=== PATIENT | female | born 1975 | race Caucasian/White ===

== ENCOUNTER 2019-07-06 11:32 | Emergency (ER) | payer OTHER, SELFPAY ==
--- NOTE | ~2019-07-06 | XR_ITS ---
EXAMINATION: XR chest 2V DATE: 07/06/2019 11:56 INDICATION: Aspiration. TECHNIQUE: Frontal and lateral views of the chest were obtained. COMPARISON: None. FINDINGS: A calcified left lung nodule is consistent with old granulomatous disease. No pleural effus ion or pneumothorax. The heart size is normal. IMPRESSION: 1. No acute cardiopulmonary disease. Reviewed, dictated and finalized at location A. 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
[2019-07-06 11:44] VITALS: BP 106/76; PULSE 80; RESP 20; TEMP 38.2; O2SAT 98
--- NOTE | 2019-07-06 11:51 | ED.GENADULT ---
HPI - General Adult General Chief complaint: Skin/Abscess/Foreign Body Stated complaint: Pill stuck in throat Time Seen by Provider: 07/06/19 11:36 Source: patient Mode of arrival: ambulatory Limitations: no limitations History of Present Illness HPI narrative: Patient is a 43-year-old female who presents with right-sided chest discomfort after believing that she may have inhaled 1 of her pills prior Monday patient notes aching pain worse with inspiration also noting fever with nonproductive cough congestion rhinorrhea. Was seen Monday started on amoxicillin with minimal improvement. Denies vomiting diarrhea Related Data Home Medications Medication Instructions Recorded Confirmed amoxicillin 500 mg PO TID 07/06/19 carbamazepine 600 mg PO BID 07/06/19 clonazepam 1 mg PO BID PRN 07/06/19 hydroxyzine HCl 50 mg PO HS PRN 07/06/19 quetiapine 100 mg PO DAILY 07/06/19 quetiapine 300 mg PO HS 07/06/19 Allergies Allergy/AdvReac Type Severity Reaction Status Date / Time No Known Allergies Allergy Verified 07/06/19 11:51 Review of Systems Review of Systems: All systems reviewed & are unremarkable except as noted in HPI and below PMFSH Past Medical History Medical History (Updated 07/06/19 @ 13:57 by Zurdo Hill PA-C) Depression Family History Family History (System 03/18/19 @ 10:15 by Melissa Stewart) Mother Family history of mental disorder Father Family history of diabetes mellitus in first degree relative Family history of coronary artery disease Social History Social History Alcohol intake: current Exam Narrative: Exam Narrative: GENERAL: Well-appearing, well-nourished, and in no acute distress. HEAD: Normocephalic, atraumatic. EYES: PERRLA and EOMI. ENT: Nares clear, no rhinorrhea or epistaxis. Mucous membranes moist. Oropharynx without tonsillar hypertrophy exudate or other lesions. NECK: Supple. No adenopathy or masses. CHEST: Clear to auscultation. No respiratory distress. No wheezes rales or rhonchi HEART: Regular rate and rhythm. No murmur heard. Normal peripheral pulses. ABDOMEN: Soft, nontender, nondistended EXTREMITIES: Normal range of motion. No edema. SKIN: Warm, dry, no rash. NEURO: No focal deficits. Alert and oriented x3. Cranial nerves II through XII grossly intact PSYCH: Normal mood and affect. Course Course Emergency Course: Patient in the room afebrile nontoxic-appearing resting comfortably feeling better with interventions Vital Signs Vital signs: Vital Signs Temperature 100.8 F H 07/06/19 11:44 Pulse Rate 80 07/06/19 11:44 Respiratory Rate 20 07/06/19 11:44 Blood Pressure 106/76 07/06/19 11:44 Pulse Oximetry 98 07/06/19 11:44 Temperature 100.8 F H 07/06/19 11:44 Pulse Rate 80 07/06/19 11:44 Respiratory Rate 20 07/06/19 11:58 Blood Pressure 106/76 07/06/19 11:44 Pulse Oximetry 98 07/06/19 11:44 Medical Decision Making MDM Narrative Medical decision making narrative: Patient in the room in no distress with normal vital signs afebrile nontoxic-appearing. Patient aware of case findings treatment plan and diagnosis. Patient agreeing to follow-up as directed. Provided with reasons to return. Likely viral or resolving bacterial infection. No pneumonia seen on exam no high risk changes in the blood work or imaging. Vital Signs Vital Signs: Vital Signs Temperature 100.8 F H 07/06/19 11:44 Pulse Rate 80 07/06/19 11:44 Respiratory Rate 20 07/06/19 11:44 Blood Pressure 106/76 07/06/19 11:44 Pulse Oximetry 98 07/06/19 11:44 Temperature 100.8 F H 07/06/19 11:44 Pulse Rate 80 07/06/19 11:44 Respiratory Rate 20 07/06/19 11:58 Blood Pressure 106/76 07/06/19 11:44 Pulse Oximetry 98 07/06/19 11:44 Lab Data Result diagrams: 07/06/19 12:17 07/06/19 12:17 Labs: Lab Results 07/06/19
[2019-07-06 11:58] VITALS: RESP 20
[2019-07-06 12:25] LABS: Basophils Percent Auto 0.8 % (0.2-1.2); Eosinophils Absolute Auto 0.3 K/mm3 (0-0.3); Eosinophils Percent Auto 6.1 % (0-4.4); Hematocrit 38.6 % (37.0-47.0); Hemoglobin 13.1 g/dL (12.0-15.0); Immature Granulocyte Absolute 0.01 K/mm3 (0.00-0.031); Immature Granulocyte Percent A 0.2 % (0-0.5); Lymphocytes Absolute Auto 1.78 K/mm3 (0.9-3.2); Lymphocytes Percent Auto 34.2 % (18.3-44.2); Mean Corpuscular HGB Conc 33.9 g/dl (32-36); Mean Corpuscular Hemoglobin 30.3 pg (26-34); Mean Corpuscular Volume 89.1 fl (80-100); Mean Platelet Volume 8.3 fl (7.4-10.4); Monocytes Absolute Auto 0.4 K/mm3 (0.1-0.6); Monocytes Percent Auto 7.5 % (2.6-8.5); Neutrophils Absolute Auto 2.7 K/mm3 (1.3-6.7); Neutrophils Percent Auto 51.2 % (45.5-73.1); Platelet Count Result 362 k/mm3 (150-375); Red Blood Count 4.33 M/mm3 (4.2-5.4); Red Cell Distribution Width 11.9 % (11.5-14.5); White Blood Count 5.2 K/mm3 (4.5-10.0)
[2019-07-06 12:37] LABS: Blood Urea Nitrogen 8 mg/dL (7-17); Calcium 8.6 mg/dL (8.4-10.2); Carbon Dioxide 27 mmol/L (22-30); Chloride 99 mmol/L (98-107); Estimated CRCL calculation 103 ml/min; Estimated Glomerular Filt Rate > 60; Glucose 79 mg/dL (65-105); Potassium 4.2 mmol/L (3.4-5.0); Sodium 132 mmol/L (137-145)
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
[2019-07-06 13:47] LABS: Add Urine Microscopic? YES; Appearance Urine Clear (Clear); Bacteria Urine Trace /hpf; Bilirubin Urine Negative (Negative); Blood Urine 2+ (Negative); Color Urine Yellow (Yellow); Glucose Urine UA Negative (Negative); Ketones Urine Negative (Negative); Leukocyte Esterase Ur Negative LEU/UL (Negative); Mucus Urine Rare /lpf; Nitrate Urine Negative (Negative); Protein Urine Negative (Negative); RBC Urine 0-2 /hpf (0-2); Specific Grav Ur 1.026 (1.001-1.035); Squamous Epithelial Cell Urine Many /hpf (Few); Urobilinogen Urine Negative mg/dL (<2.0); WBC Urine 0-3 /hpf
[2019-07-06 15:19] VITALS: BP 118/72; PULSE 64; RESP 20; O2SAT 99
== END 2019-07-06 15:20 | disposition home or self-care (01) ==
PROVIDERS: Emergency Medicine Emergency Medical Services; Emergency Provider Emergency Medicine; PCP Physician Assistant
DX: J06.9 Acute upper respiratory infection, unspecified (principal); F32.9 Major depressive disorder, single episode, unspecified
CPT/HCPCS: 36415; 71046; 80048; 81001; 85025; 87081; 87804; 87880; 96374; 99284; J0131

== ENCOUNTER 2019-08-22 19:09 | Emergency (ER) | payer OTHER, SELFPAY ==
[2019-08-22 19:24] VITALS: BP 123/83; PULSE 82; RESP 19; TEMP 37.2; O2SAT 97
--- NOTE | 2019-08-22 19:27 | PC.NURSE ---
Call for Help called by this RN
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
== END 2019-08-22 20:45 | disposition left against medical advice (07) ==
LOC: ANHED 20:44
PROVIDERS: Emergency Provider Emergency Medicine; PCP Physician Assistant
DX: Z53.21 Procedure and treatment not carried out due to patient leaving prior to being seen by health care provider (principal)
CPT/HCPCS: 99199

== ENCOUNTER 2021-02-11 10:00 | Outpatient (CLI) | payer OTHER, SELFPAY ==
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
[2021-02-11 10:35] LABS: Estimated Glomerular Filt Rate > 60
[2021-02-16 07:15] LABS: Carbamazepine Tegretol 5.2 mcg/mL (4.0-12.0)
== END 2021-02-11 10:01 | disposition home or self-care (01) ==
PROVIDERS: Visit Provider Psychiatry & Neurology Neurology
DX: R56.9 Unspecified convulsions (principal); R78.89 Finding of other specified substances, not normally found in blood
CPT/HCPCS: 70553; 80156; A9577

== ENCOUNTER 2021-03-02 15:07 | Emergency (ER) | payer OTHER, SELFPAY ==
--- NOTE | ~2021-03-02 | US_ITS ---
EXAMINATION: US venous doppler UE DATE: 03/02/2021 16:05 INDICATION: Left upper extremity swelling. TECHNIQUE: Irby scale images with and without compression and Doppler images of the left upper extrem ity veins were obtained. COMPARISON: None. FINDINGS: The left internal jugular vein, subclavian vein, axillary vein, brachial veins, basilic vein, cephali c vein, radial vein, and ulnar vein are patent. IMPRESSION: 1. Patent left upper extremity veins. No evidence of deep venous thrombosis. Reviewed, dictated and finalized at location A.
[2021-03-02 15:14] VITALS: BP 133/86; PULSE 69; RESP 18; TEMP 35.9; O2SAT 98
[2021-03-02 15:22] VITALS: BP 133/86; PULSE 69; RESP 20; TEMP 35.9; O2SAT 98
--- NOTE | 2021-03-02 15:29 | ED.UPPEXIN ---
HPI - Extremity Injury (Upper) General Chief Complaint: Extremity Injury, Upper Stated Complaint: bump on arm Time Seen by Provider: 03/02/21 15:21 Source: patient Mode of arrival: ambulatory Limitations: no limitations History of Present Illness HPI narrative: This is a 45-year-old female that presents to the emergency department for left upper arm pain noted over the last couple of days. Reports she has a painful lump in the upper arm. 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 Does report she is recently started on estrogen. Denies fever, chest pain, shortness of breath, recent travel or surgery, or smoking. Related Data Home Medications Medication Instructions Recorded Confirmed clindamycin HCl 03/02/21 estradiol mg 03/02/21 multivitamin 1 tablet PO DAILY 03/02/21 progesterone micronized mg 03/02/21 Allergies Allergy/AdvReac Type Severity Reaction Status Date / Time No Known Allergies Allergy Verified 03/02/21 15:25 Review of Systems Review of Systems: CONSTITUTIONAL: Denies fever CARDIOVASCULAR: Denies chest pain RESPIRATORY: Denies dyspnea. NEUROLOGIC: Denies numbness, or weakness. All systems reviewed & are unremarkable except as noted in HPI and below PMFSH Past Medical History Medical History (Updated 03/02/21 @ 16:16 by Becky Aguirre PA-C) Depression Seizures Family History Family History Mother Family history of mental disorder Father Family history of diabetes mellitus in first degree relative Family history of coronary artery disease Social History Social History (Updated 03/02/21 @ 15:29 by Becky Aguirre PA-C) Smoking status: Former smoker Alcohol intake: former Gender identity (if verbalized by the patient): Female Exam Narrative: GENERAL: Well-appearing, well-nourished, and in no acute distress. HEAD: Normocephalic, atraumatic. EYES: EOMI. CHEST: No respiratory distress. HEART: Regular rate EXTREMITIES: Normal range of motion. No edema or erythema. Small (1cm) palpable tender area in the left upper arm. Normal radial pulses SKIN: Warm, dry, no rash. NEURO: No focal deficits. Alert and oriented x3. PSYCH: Normal mood and affect Course Vital Signs Vital signs: Vital Signs Temperature 96.7 F L 03/02/21 15:14 Pulse Rate 69 03/02/21 15:14 Respiratory Rate 18 03/02/21 15:14 Blood Pressure 133/86 03/02/21 15:14 Pulse Oximetry 98 03/02/21 15:14 Temperature 96.7 F L 03/02/21 15:22 Pulse Rate 69 03/02/21 15:22 Respiratory Rate 20 03/02/21 15:22 Blood Pressure 133/86 03/02/21 15:22 Pulse Oximetry 98 03/02/21 15:22 MDM - Extremity Injury (Upper) MDM Narrative Medical decision making narrative: Patient presents to the emergency department for swelling and pain to the left upper extremity. No recent injury or trauma. She is afebrile and nontoxic-appearing. No erythema or edema of the arm noted. She is neurovascularly intact. CBC and metabolic panel without concerning findings. Left upper extremity venous Doppler without evidence of DVT. Patient instructed to use heat to the area, Tylenol and ibuprofen as needed for pain. She is to follow-up with her primary care doctor. She was given warnings to return to the ER Lab Data Attestation: I reviewed the patient's lab results. Result diagrams: 03/02/21 15:35 03/02/21 15:35 Labs: Lab Results 03/02/21 03/02/21 03/02/21 Range/Units 15:35 15:35 15:35 WBC 7.8 (4.5-10.0) K/mm3 RBC 4.42 (4.2-5.4) M/mm3 Hgb 14.1 (12.0-15.0) g/dL Hct 41.6 (37.0-47.0) % MCV 94.1 (80-100) fl MCH 31.9 (26-34) pg MCHC 33.9 (32-36) g/dl RDW 11.9 (11.5-14.5) % Plt Count 324 (150-375) k/mm3 MPV 9.1 (7.4-10.4) fl Immature Gran % (Auto) 0.1 (0-0.5) % Neut % (Auto) 65.8 (45.5-73.1) %
[2021-03-02 15:42] LABS: Basophils Percent Auto 0.5 % (0.2-1.2); Eosinophils Absolute Auto 0.2 K/mm3 (0-0.3); Eosinophils Percent Auto 2.9 % (0-4.4); Hematocrit 41.6 % (37.0-47.0); Hemoglobin 14.1 g/dL (12.0-15.0); Immature Granulocyte Absolute 0.01 K/mm3 (0.00-0.031); Immature Granulocyte Percent A 0.1 % (0-0.5); Lymphocytes Percent Auto 25.6 % (18.3-44.2); Mean Corpuscular HGB Conc 33.9 g/dl (32-36); Mean Corpuscular Hemoglobin 31.9 pg (26-34); Mean Corpuscular Volume 94.1 fl (80-100); Mean Platelet Volume 9.1 fl (7.4-10.4); Monocytes Absolute Auto 0.4 K/mm3 (0.1-0.6); Monocytes Percent Auto 5.1 % (2.6-8.5); Neutrophils Absolute Auto 5.1 K/mm3 (1.3-6.7); Neutrophils Percent Auto 65.8 % (45.5-73.1); Platelet Count Result 324 k/mm3 (150-375); Red Blood Count 4.42 M/mm3 (4.2-5.4); Red Cell Distribution Width 11.9 % (11.5-14.5); White Blood Count 7.8 K/mm3 (4.5-10.0)
[2021-03-02 15:52] LABS: Anion Gap 8 mmol/L (8-16); Blood Urea Nitrogen 16 mg/dL (7-17); Carbon Dioxide 24 mmol/L (22-30); Chloride 106 mmol/L (98-107); Estimated CRCL calculation 80 ml/min; Estimated Glomerular Filt Rate > 60; Glucose 107 mg/dL (65-110); INR 0.9; Potassium 4.1 mmol/L (3.4-5.0); Prothrombin Time 12.3 Seconds (11.1-14.7); Sodium 138 mmol/L (137-145)
[2021-03-02 15:53] LABS: Partial Thromboplastin Time 25.3 SECONDS (22.3-36.8)
== END 2021-03-02 16:25 | disposition home or self-care (01) ==
PROVIDERS: Physician Assistant; Emergency Provider Family Medicine
DX: M79.622 Pain in left upper arm (principal); Z87.891 Personal history of nicotine dependence
CPT/HCPCS: 36415; 80048; 85025; 85610; 85730; 93971; 99284

== ENCOUNTER 2021-12-06 11:26 | Emergency (ER) | payer OTHER, SELFPAY ==
[2021-12-06 11:30] VITALS: BP 119/79; PULSE 63; RESP 16; TEMP 36.4; O2SAT 98
--- NOTE | 2021-12-06 12:47 | ED.UPPEXIN ---
HPI - Extremity Injury (Upper) General Chief Complaint: Extremity Injury, Upper Stated Complaint: Left hand pain Time Seen by Provider: 12/06/21 12:09 Source: patient Mode of arrival: ambulatory Limitations: no limitations History of Present Illness HPI narrative: 45 years old white female came to the emergency room by private car complaining of left wrist and left hand pain started 4 months ago, got worse over the last 2 weeks. Patient have trouble to hold stuff without swelling, intermittent tingling and numbness. Patient works at [employer] with repetitive hand movement. 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 Patient could not go to work today because of the pain. She denies any fever, chills, nausea, vomiting, headache, weakness, numbness or tingling anywhere else. Related Data Home Medications Medication Instructions Recorded Confirmed clindamycin HCl 300 mg capsule 03/02/21 estradiol 1 mg tablet mg 03/02/21 multivitamin 1 tablet PO DAILY 03/02/21 progesterone micronized 100 mg mg 03/02/21 capsule Allergies Allergy/AdvReac Type Severity Reaction Status Date / Time No Known Allergies Allergy Verified 12/06/21 12:05 Review of Systems Review of Systems: All systems reviewed & are unremarkable except as noted in HPI and below PMFSH Past Medical History Medical History Depression Seizures Family History Family History Mother Family history of mental disorder Father Family history of diabetes mellitus in first degree relative Family history of coronary artery disease Social History Social History Smoking status: Former smoker Alcohol intake: former Gender identity (if verbalized by the patient): Female Exam Narrative: General appearance: Well-developed, well-nourished Skin: Normal color Head: Normocephalic, nontraumatic Eyes: Clear conjunctiva ENT: Oropharynx normal, ears normal, nose normal Neck: Supple, nontender Chest and respiratory: Airway patent, no respiratory distress, no accessory muscle use Heart: Regular rate/rhythm Abdomen: Soft, nontender, no organomegaly, quiet bowel sounds Vascular: Normal peripheral pulses, normal capillary refill. Musculoskeletal: Normal range of motion, nontender back, slight tenderness of the left wrist, no swelling, no rash, no bruises Neurologic: Alert and oriented ?3, slight weakness of the left hand, 4 out of 5. Positive Phalen's test Course Course Emergency Course: Carpal tunnel syndrome is my concern. Patient need to follow-up with a neurologist for nerve conduction test. Vital Signs Vital signs: Vital Signs Temperature 36.4 C 12/06/21 11:30 Pulse Rate 63 12/06/21 11:30 Respiratory Rate 16 12/06/21 11:30 Blood Pressure 119/79 12/06/21 11:30 Pulse Oximetry 98 12/06/21 11:30 Oxygen Delivery Room Air 12/06/21 11:30 Temperature 36.4 C 12/06/21 11:30 Pulse Rate 63 12/06/21 11:30 Respiratory Rate 16 12/06/21 11:30 Blood Pressure 119/79 12/06/21 11:30 Pulse Oximetry 98 12/06/21 11:30 Oxygen Delivery Room Air 12/06/21 11:30 MDM - Extremity Injury (Upper) Differential Diagnosis Differential diagnosis: Likely other (Carpal tunnel syndrome, arthritis) Critical Care Time Critical Care Time Critical Care Time: No Discharge Plan Discharge Clinical Impression: Hand paresthesia, Acute carpal tunnel syndrome Patient Disposition: Home, Self-Care Condition: Stable Instructions: Antibiotic Form, Carpal Tunnel Syndrome (DC), Paresthesia (ED) Additional Instructions: Return if symptoms are worsening , call Dr. Funes for appointment, take Tylenol as
== END 2021-12-06 13:32 | disposition home or self-care (01) ==
PROVIDERS: Emergency Provider Emergency Medicine
DX: G56.02 Carpal tunnel syndrome, left upper limb (principal); R20.2 Paresthesia of skin; Z87.891 Personal history of nicotine dependence
CPT/HCPCS: 99282

== ENCOUNTER 2021-12-19 15:43 | Emergency (ER) | payer OTHER, SELFPAY ==
--- NOTE | ~2021-12-19 | XR_ITS ---
XR shoulder RT min 2V 12/19/2021 16:14 INDICATION: Right shoulder pain PROCEDURE: 4 views right shoulder COMPARISON: 07/11/2018 FINDINGS: Fracture, dislocation or subluxation is not identified. The soft tissues appear within norm al limits. No foreign bodies are identified. IMPRESSION: 1: NO ACUTE BONE OR JOINT ABNORMALITY IDENTIFIED. Reviewed, dictated and finalized at location A.
--- NOTE | ~2021-12-19 | XR_ITS ---
EXAMINATION: XR chest 2V 12/19/2021 16:36 INDICATION: Right-sided chest pain and congestion PROCEDURE: PA and lateral views of the chest COMPARISON: 07/06/2019 FINDINGS: The lungs are clear. The cardiomediastinal silhouette is within normal limits. There are no pleural effusions. There is no pneumothorax suspected. IMPRESSION: 1: NO ACUTE CARDIOPULMONARY DISEASE. Reviewed, dictated and finalized at location A.
[2021-12-19 15:45] VITALS: BP 106/74; PULSE 64; RESP 18; TEMP 36.6; O2SAT 97
--- NOTE | 2021-12-19 16:06 | ED.NECK ---
HPI - Neck Pain/Injury General Chief Complaint: Neck Pain/Injury Stated Complaint: neck/shoulder pain Time Seen by Provider: 12/19/21 15:51 History of Present Illness HPI Narrative: Patient is a 45-year-old female here for evaluation of right shoulder pain over the past week. Patient states that the pain came on after a cough, and noted that it was sharp and stabbing in nature around her shoulder region and also in her neck. She states since then the pain has been relatively constant in nature, worse with certain positions. She has not attempted any pain medicine. Also notes that she has had what seems like an asthma flareup over the past month, with frequent coughing, tightness in her chest on the right side cough, and upper respiratory infectious type symptoms. she has been taking her albuterol inhaler and nebulizer treatments with relief of the symptoms, but the longevity is worrisome to her. Related Data Home Medications Medication Instructions Recorded Confirmed clindamycin HCl 300 mg capsule 03/02/21 estradiol 1 mg tablet mg 03/02/21 multivitamin 1 tablet PO DAILY 03/02/21 progesterone micronized 100 mg mg 03/02/21 capsule Allergies Allergy/AdvReac Type Severity Reaction Status Date / Time No Known Allergies Allergy Verified 12/06/21 12:05 Review of Systems Review of Systems: Gen: Denies fevers or chills Eyes: Denies eye pain or visual change ENT: Denies congestion Respiratory: Reports cough. denies shortness of breath CV: Denies chest pain or palpitations GI: Denies abdominal pain nausea, emesis or diarrhea : denies burning, urgency, frequency or hematuria Musculoskeletal: Reports right shoulder pain Neuro: Denies numbness, tingling, weakness or focal weakness Skin: Denies rash Except as documented, all other systems reviewed and negative [facility] Past Medical History Medical History Depression Seizures Family History Family History Mother Family history of mental disorder Father Family history of diabetes mellitus in first degree relative Family history of coronary artery disease Social History Social History Smoking status: Former smoker Alcohol intake: former Gender identity (if verbalized by the patient): Female Exam Narrative: APPEARANCE: Well appearing, no pain in distress, well-nourished. Head: Normocephalic and atraumatic. EYES: PERRLA/EOMI, conjunctivae clear NOSE: No nasal drainage EARS: External ear normal in appearance THROAT: Oropharynx is clear. Mucous membranes are moist. NECK: Supple. No adenopathy, no masses. RESPIRATORY: Airway patent, respirations nonlabored. Clear to auscultation bilaterally, no rales, rhonchi, wheezing. CARDIOVASCULAR: Regular rate and rhythm without murmurs, rubs, or gallops. ABDOMINAL: Normoactive bowel sounds. Soft, nontender, nondistended. No rebound tenderness or guarding. MUSCULOSKELETAL: No bony tenderness to palpation along right clavicle, humerus, elbow or wrist. She has full range of motion in the right shoulder, but does note pain with external rotation. She states most comfortable position is internal rotation of the shoulder. Empty can test positive. Ferris test positive. Extremities warm and well perfused. Spurling's test negative. No midline tenderness along C-spine. Notes pain in shoulder with hyperextension of neck. Extremities are warm and well-perfused. NEURO: Normal speech. No focal neurologic deficits. SKIN: Skin is warm and dry. No rashes. PSYCHIATRIC: Normal affect/mood. Course Vital Signs Vital signs: Vital Signs Temperature 97.8 F 12/19/21 15:45 Pulse Rate 64 12/19/21 15:45 Respiratory Rate 18 12/19/21 15:45 Blood Pressure 106/74 12/19/21 15:45 Pulse Oximetry 97 12/19/21 15:45 Temperature 97.8 F 12/19/21 15:45 Pulse R
--- NOTE | 2021-12-19 16:26 | ECG_ITS ---
Measurements Intervals [place] Rate: 54 P: 5 SD: 161 QRS: 43 QRSD: 103 T: 34 QT: 407 QTc: 388 Interpretive Statements SINUS BRADYCARDIA OTHERWISE WITHIN NORMAL LIMITS NO PREVIOUS ECG AVAILABLE FOR COMPARISON Electronically Signed On 12-20-2021 13:52:31 CDT by Luther Vyas M.D.
[2021-12-19 16:55] LABS: Basophils Percent Auto 0.3 % (0.2-1.2); Eosinophils Absolute Auto 0.2 K/mm3 (0-0.3); Hematocrit 37.9 % (37.0-47.0); Hemoglobin 12.6 g/dL (12.0-15.0); Immature Granulocyte Absolute 0.02 K/mm3 (0.00-0.031); Immature Granulocyte Percent A 0.3 % (0-0.5); Lymphocytes Absolute Auto 2.06 K/mm3 (0.9-3.2); Lymphocytes Percent Auto 29.1 % (18.3-44.2); Mean Corpuscular HGB Conc 33.2 g/dl (32-36); Mean Corpuscular Volume 93.3 fl (80-100); Mean Platelet Volume 8.7 fl (7.4-10.4); Monocytes Absolute Auto 0.5 K/mm3 (0.1-0.6); Monocytes Percent Auto 7.1 % (2.6-8.5); Neutrophils Absolute Auto 4.3 K/mm3 (1.3-6.7); Neutrophils Percent Auto 60.2 % (45.5-73.1); Platelet Count Result 286 k/mm3 (150-375); Red Blood Count 4.06 M/mm3 (4.2-5.4); Red Cell Distribution Width 12.4 % (11.5-14.5); White Blood Count 7.1 K/mm3 (4.5-10.0)
[2021-12-19 17:13] LABS: Anion Gap 6 mmol/L (8-16); Blood Urea Nitrogen 13 mg/dL (7-17); Calcium 8.9 mg/dL (8.4-10.2); Carbon Dioxide 26 mmol/L (22-30); Chloride 100 mmol/L (98-107); Estimated CRCL calculation 106 ml/min; Estimated Glomerular Filt Rate > 60; Glucose 108 mg/dL (65-110); Potassium 3.7 mmol/L (3.4-5.0); Sodium 132 mmol/L (137-145)
[2021-12-19 17:25] LABS: Troponin I < 0.012 ng/mL (0.000-0.034)
== END 2021-12-19 17:57 | disposition home or self-care (01) ==
PROVIDERS: Physician Assistant; Emergency Provider Emergency Medicine
DX: M25.511 Pain in right shoulder (principal); J45.909 Unspecified asthma, uncomplicated; Z87.891 Personal history of nicotine dependence; R00.1 Bradycardia, unspecified
CPT/HCPCS: 36415; 71046; 73030; 80048; 84484; 85025; 93005; 99284; A4565

== ENCOUNTER 2022-05-03 12:10 | Emergency (ER) | payer OTHER, SELFPAY ==
--- NOTE | ~2022-05-03 | XR_ITS ---
Left Hand Technique: PA, oblique, and lateral views were obtained. Clinical History: Pain Findings: No acute fracture or dislocation is seen. Osseous alignment is anatomic. Joint spaces are p reserved. Soft tissues are unremarkable. Impression: Unremarkable left hand. Reviewed, dictated and finalized at location M. [employer] Impression: Unremarkable left hand.
--- NOTE | ~2022-05-03 | XR_ITS ---
Left wrist Technique: PA, oblique, lateral, and ulnar deviation views were obtained. Clinical History: Pain Findings: No acute fracture or dislocation is seen. Osseous alignment is anatomic. Joint spaces are p reserved. Soft tissues are unremarkable. Impression: Unremarkable left wrist radiographs. Reviewed, dictated and finalized at location . GRADER Impression: Unremarkable left wrist radiographs.
[2022-05-03 12:21] VITALS: BP 104/61; PULSE 65; RESP 18; TEMP 36.9; O2SAT 96
--- NOTE | 2022-05-03 13:13 | ED.EXTPRO ---
HPI - Extremity Problem General Chief complaint: Extremity Problem,Nontraumatic Stated complaint: L thumb pain Time Seen by Provider: 05/03/22 13:00 History of Present Illness HPI Narrative: Patient is a 46-year-old female here for evaluation of left thumb pain for the past 4 months. Patient states the pain is worse with movement of her wrist. States that she had nerve conduction studies that confirmed findings of carpal tunnel upon symptom onset. States that she has not been wearing her brace as prescribed. She has not been taking any ibuprofen or Tylenol for her pain. Denies numbness or tingling in her wrist, weakness. She works at [email or web address] and is requesting a work note. Related Data Home Medications Medication Instructions Recorded Confirmed estradiol 1 mg tablet mg 03/02/21 12/27/21 multivitamin 1 tablet PO DAILY 03/02/21 12/27/21 progesterone micronized 100 mg mg 03/02/21 12/27/21 capsule fluticasone propionate 50 1 spray intranasal DAILY 01/11/22 mcg/actuation nasal spray,suspension (Flonase Allergy Relief) levocetirizine 5 mg tablet (Xyzal) 5 mg PO DAILY 01/11/22 olanzapine 10 mg tablet 10 mg PO DAILY 01/11/22 Allergies Allergy/AdvReac Type Severity Reaction Status Date / Time No Known Allergies Allergy Verified 05/03/22 12:45 Review of Systems Review of Systems: Gen.: Denies fevers or chills Eyes: Denies eye pain or visual change ENT: Denies congestion Respiratory: Denies shortness of breath or cough CV: Denies chest pain or palpitations GI: Denies abdominal pain nausea, emesis or diarrhea denies burning, urgency, frequency or hematuria Musculoskeletal: Reports left thumb pain. Denies back pain or muscle pain Neuro: Denies numbness, tingling, weakness or focal weakness Skin: Denies rash Except as documented, all other systems reviewed and negative [facility] Past Medical History Medical History Anxiety Asthma Claustrophobia Depression Seizures Surgical History Surgical History History of History of hernia repair History of tubal ligation Family History Family History (Updated 01/11/22 @ 13:55 by Antonella Diaz, RT(R)) Mother Family history of mental disorder Father Family history of diabetes mellitus in first degree relative Family history of coronary artery disease Other Arthritis Asthma Cancer Depression Diabetes mellitus Heart disease High cholesterol Hypertension Social History Social History Smoking status: Former smoker Alcohol intake: former Gender identity (if verbalized by the patient): Female Exam Narrative: Gen: Alert, oriented, no acute distress Eyes: EOMI, no icterus Pulm: Respirations even and unlabored, symmetric thorax expansion, no audible stridor or visible cyanosis CV: Regular rate per telemetry GI: No distension, no voluntary/involuntary guarding Neuro: AOx4, moves all extremities without apparent difficulty or weakness, follows commands MSK: Tender to palpation at the base of the left thumb. Kim's test positive. Phalen's test positive. Full range of motion in thumb without pain. No tenderness along carpal bones. Thenar eminence is normal in appearance. Skin: No jaundice, no visible bruising, rashes, lesions or wounds on exposed skin Psych: Normal mood/affect, insight/judgement good, adequate fund of knowledge, recent/remote memory intact Course Vital Signs Vital signs: Vital Signs Temperature 98.4 F 05/03/22 12:21 Pulse Rate 65 05/03/22 12:21 Respiratory Rate 18 05/03/22 12:21 Blood Pressure 104/61 05/03/22 12:21 Pulse Oximetry 96 05/03/22 12:21 Oxygen Delivery Room Air 05/03/22 12:21 Temperature 98.4 F 05/03/22 12:21 Pulse Rate 87 05/03/22 13:53 Respiratory Rate 15 05/03/22 13:53
[2022-05-03 13:53] VITALS: BP 106/67; PULSE 87; RESP 15; O2SAT 99
== END 2022-05-03 13:54 | disposition home or self-care (01) ==
PROVIDERS: Emergency Provider Physician Assistant
DX: G56.02 Carpal tunnel syndrome, left upper limb (principal); F41.9 Anxiety disorder, unspecified; J45.909 Unspecified asthma, uncomplicated; F32.9 Major depressive disorder, single episode, unspecified; G40.909 Epilepsy, unspecified, not intractable, without status epilepticus
CPT/HCPCS: 73110; 73130; 99283

== ENCOUNTER 2022-05-10 12:54 | Emergency (ER) | payer OTHER, SELFPAY ==
[2022-05-10 13:17] VITALS: BP 107/55; PULSE 60; RESP 20; TEMP 37.1; O2SAT 98
[2022-05-10 14:28] VITALS: RESP 14
--- NOTE | 2022-05-10 14:41 | ED.SKABFB ---
HPI - Skin/Abscess/Foreign Bdy General Chief complaint: Skin/Abscess/Foreign Body Stated complaint: cyst in left armpit Time Seen by Provider: 05/10/22 14:28 History of Present Illness HPI narrative: 46-year-old female here for evaluation of a lesion to her left axilla that she noticed about a month ago. Since then the lesion has been growing in size and has becoming more painful. She has not attempted any medicine for the pain. Denies history of similar previous sensations. No fevers, chills, states that she has felt a little bit tired over the past week now she has been working a lot. Related Data Home Medications Medication Instructions Recorded Confirmed multivitamin 1 tablet PO DAILY 03/02/21 12/27/21 progesterone micronized 100 mg mg 03/02/21 12/27/21 capsule fluticasone propionate 50 1 spray intranasal DAILY 01/11/22 mcg/actuation nasal spray,suspension (Flonase Allergy Relief) olanzapine 10 mg tablet 10 mg PO DAILY 01/11/22 deutetrabenazine 9 mg tablet 9 mg PO DAILY 05/10/22 (Austedo) olanzapine 10 mg tablet (Zyprexa) 10 mg PO HS 05/10/22 Allergies Allergy/AdvReac Type Severity Reaction Status Date / Time No Known Allergies Allergy Verified 05/03/22 12:45 Review of Systems Review of Systems: Gen.: Denies fevers or chills Eyes: Denies eye pain or visual change ENT: Denies congestion Respiratory: Denies shortness of breath or cough CV: Denies chest pain or palpitations GI: Denies abdominal pain nausea, emesis or diarrhea denies burning, urgency, frequency or hematuria Musculoskeletal: Denies back pain or muscle pain Neuro: Denies numbness, tingling, weakness or focal weakness Skin: reports lesion in left axillae Except as documented, all other systems reviewed and negative [facility] Past Medical History Medical History Anxiety Asthma Claustrophobia Depression Seizures Surgical History Surgical History History of History of hernia repair History of tubal ligation Family History Family History (Updated 01/11/22 @ 13:55 by Antonella Diaz, RT(R)) Mother Family history of mental disorder Father Family history of diabetes mellitus in first degree relative Family history of coronary artery disease Other Arthritis Asthma Cancer Depression Diabetes mellitus Heart disease High cholesterol Hypertension Social History Social History Smoking status: Former smoker Alcohol intake: former Gender identity (if verbalized by the patient): Female Exam Narrative: Gen: alert, oriented, NAD Eyes: EOMI, no icterus Pulm: Respirations even and unlabored, symmetric thorax expansion, no audible stridor or visible cyanosis CV: Regular rate per telemetry GI: No distension, no voluntary/involuntary guarding Neuro: AOx4, moves all extremities without apparent difficulty or weakness, follows commands Skin: Patient has a 2 x 3 cm area of induration to her left axilla with overlying cellulitis, no active drainage Psych: Normal mood/affect, insight/judgement good, adequate fund of knowledge, recent/remote memory intact Course Vital Signs Vital signs: Vital Signs Temperature 98.7 F 05/10/22 13:17 Pulse Rate 60 05/10/22 13:17 Respiratory Rate 20 05/10/22 13:17 Blood Pressure 107/55 L 05/10/22 13:17 Pulse Oximetry 98 05/10/22 13:17 Oxygen Delivery Room Air 05/10/22 13:17 Temperature 98.7 F 05/10/22 13:17 Pulse Rate 60 05/10/22 13:17 Respiratory Rate 14 05/10/22 16:05 Blood Pressure 107/55 L 05/10/22 13:17 Pulse Oximetry 98 05/10/22 13:17 Oxygen Delivery Room Air 05/10/22 13:17 Procedures Abscess I/D other: Date of Incision: 05/10/22 Time of Incision: 15:30 Local Anesthetic: lidocaine 1% and with epi Amount
[2022-05-10] MEDS: IBUPROFEN 600 MG TABLET PO (14:55)
[2022-05-10] MEDS: POVIDONE-IODINE 10% SOLUTION 118 ML BOTTLE 10 ML TOPICAL (14:55)
[2022-05-10] MEDS: LIDOCAINE, EPINEPHRINE, TETRACAINE VISCOUS SOLN 3 ML TOPICAL (14:55)
[2022-05-10] MEDS: LIDO 1%/EPINEPHRINE/PF 1:200,000 30 ML VIAL 5 ML INFILTRATE (15:52)
[2022-05-10 16:05] VITALS: RESP 14
== END 2022-05-10 16:06 | disposition home or self-care (01) ==
PROVIDERS: Emergency Provider Physician Assistant
DX: L02.412 Cutaneous abscess of left axilla (principal); J45.909 Unspecified asthma, uncomplicated; F41.9 Anxiety disorder, unspecified; F32.A Depression, unspecified; Z87.891 Personal history of nicotine dependence
CPT/HCPCS: 10060; 99283; A9270

== ENCOUNTER 2022-06-30 15:40 | Outpatient (CLI) | payer OTHER, SELFPAY ==
--- NOTE | ~2022-06-30 | XR_ITS ---
EXAMINATION: XR foot LT min 3V DATE: 06/30/2022 16:03 INDICATION: Left foot pain. TECHNIQUE: 4 views of left foot were obtained. COMPARISON: None. FINDINGS: Bone alignment is normal. No fracture. There is mild osteoarthritis of some of the interpha langeal joints. There is an enthesophyte at plantar aspect of calcaneal tuberosity. IMPRESSION: 1. Mild polyarticular osteoarthritis. Reviewed, dictated and finalized at location A. 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
== END 2022-06-30 15:41 | disposition home or self-care (01) ==
LOC: ANHIMG 15:50
DX: M19.072 Primary osteoarthritis, left ankle and foot (principal)
CPT/HCPCS: 73630

== ENCOUNTER 2022-12-09 12:06 | Outpatient (CLI) | payer OTHER, SELFPAY ==
[2022-12-13 09:29] LABS: Carbamazepine Tegretol 11.2 mcg/mL (4.0-12.0)
== END 2022-12-09 12:07 | disposition home or self-care (01) ==
LOC: ANHSURGERY 12:12
PROVIDERS: Anesthesiology; Visit Provider Plastic Surgery
DX: G40.909 Epilepsy, unspecified, not intractable, without status epilepticus (principal); Z01.818 Encounter for other preprocedural examination
CPT/HCPCS: 36415; 80156

== ENCOUNTER 2022-12-14 01:47 | Day surgery (SDC) | payer OTHER, SELFPAY ==
[2022-12-05 14:49] VITALS: BMI 26.4
--- NOTE | 2022-12-05 14:52 | SUR.PREOP ---
Addendum entered by Naya Grimm RN 12/05/22 14:58: PT TO BRING ALBUTEROL INHALER AM OF SURGERY Original Note: Report to the Outpatient Waiting Room, entrance under the green pavilion located off [facility], at time _0800 on date _12/14/22 . Planned Procedure Time: _1000 . Time changes happen often and if your time is changed the preop area will call you the afternoon before. - You and your visitor will be asked to self-screen and do not enter if you have any COVID symptoms. - A mask is optional within the hospital at this time. Patients may have clear liquids (water, carbonated beverages, clear teas, apple juice) until 3 hours prior to surgery with a maximum of 20 ounces. - No food from midnight until time of surgery - Infants may have breast milk until 4 hours before surgery, formula 6 hours prior to surgery. - Children will be allowed to drink immediately following surgery. If applicable, please bring a bottle or sippy cup to assist with drinking. Juice, water, soda, and popsicles are readily available. For infants on formula, please bring formula the day of surgery. Pacifiers are allowed. Take the following medications with a SIP of water the morning of surgery: _CLONAZEPAM,CARBAPINZINE DO NOT STOP ANY OF YOUR OTHER PRESCRIPTION MEDICATIONS PRIOR TO SURGERY ?EXCEPT THE FOLLOWING Medications to discontinue per physician ___MULTIVITAMIN Date to take last dose__12/11/22 Please no make-up, nail swiss, hairspray, perfume, deodorant, or body powder the day of surgery. No jewelry (including any body piercings) or valuables the day of surgery, leave them at home. Please take a shower or bath the night before, or the morning of, surgery with an antibacterial soap. Wear comfortable, loose fitting clothing. Children are encouraged to wear pajamas. - Jewelry must be removed prior to entering the operating room. Rings and piercings that are not removed may be cut off. - The hospital will not accept responsibility for valuables. - Please leave all valuables, including medications, at home the day of surgery. If you are going home after surgery, a licensed delivery motorcycle driver must drive you home. - NO public transportation without another adult if you receive anesthesia. - We recommend that an adult stay with you for 24 hours following discharge. - We also recommend that you do not drive, make important decision, drink alcoholic beverages, or take any drugs that were not prescribed by your health care provider for at least 24 hours after your discharge time. For Pediatric surgeries, we recommend two adults accompany the child home. Follow any additional instructions given to you from your surgeon. If you or anyone in your household have experienced Covid symptoms in the past week, please notify your surgeon or the nurse liaison at the phone number below for possible testing. Telephone instructions given to _NICHELLE PACKER and asked if any additional questions and then verbalized understanding. Patient advised to call surgeon office or pre surgery nurse liaison [phone] if any additional questions.
[2022-12-14 06:50] VITALS: BP 105/73; PULSE 59; RESP 18; TEMP 36.3; O2SAT 98
[2022-12-14] MEDS: LACTATED RINGERS 1,000 ML 30 ML IV CONT (07:10)
--- NOTE | 2022-12-14 07:15 | WPDHPUPDATE1 ---
History and Physical Update Update Date/Time: 12/14/22 07:15 History and Physical has been reviewed, including an updated exam of the patient. There are NO changes in the patient's condition. Risks, benefits, and alternatives have been discussed and questions answered. Patient agrees to proceed with procedure.
--- NOTE | 2022-12-14 07:51 | WPDANESEPPF ---
Anes - Initial Pre Proc Eval Procedure: Operation Date: 12/14/22 08:30 Proposed Procedures p Right Open Carpal Tunnel Release, Right Ulnar Neuroplasty at Elbow - Carroll Watson MD Date/Time: 12/14/22 07:51 Surgeon: Carroll Watson MD Pre Op Diagnosis: right carpal and cubital tunnel syndrome Patient Data Age: 46 Gender: F Height: 1.55 m Weight: 63.63 kg Allergies Allergy/AdvReac Type Severity Reaction Status Date / Time No Known Allergies Allergy Verified 12/05/22 14:27 Home Medications Medication Instructions Recorded Confirmed Type albuterol sulfate 90 mcg/actuation 2 puff inhalation QID PRN 07/06/19 12/05/22 Rx aerosol inhaler shortness of breath or wheezing #6.7 grams carbamazepine 200 mg tablet 200 mg PO .COMPLEX #180 tabs 12/28/20 12/05/22 Rx clonazepam 1 mg tablet 1 mg PO BID #30 tabs 01/29/21 12/05/22 Rx multivitamin 1 tablet PO DAILY 03/02/21 12/05/22 History fluticasone propionate 50 1 spray intranasal DAILY 01/11/22 12/05/22 History mcg/actuation nasal spray,suspension (Flonase Allergy Relief) olanzapine 10 mg tablet 10 mg PO DAILY 01/11/22 12/05/22 History deutetrabenazine 9 mg tablet 9 mg PO DAILY 05/10/22 12/05/22 History (Austedo) Patient hx anesthesia problems: none Family hx anesthesia problems: none Results Review: All pre-operative results and documents have been reviewed as part of the pre-operative evaluation. [facility] Past Medical History Medical History ESTHER positive Anxiety Asthma Claustrophobia Depression Inflammatory arthropathy Seizures Surgical History Surgical History History of History of hernia repair History of tubal ligation Family History Family History Mother Family history of mental disorder Father Family history of diabetes mellitus in first degree relative Family history of coronary artery disease Other Arthritis Asthma Cancer Depression Diabetes mellitus Heart disease High cholesterol Hypertension Social History Social History Smoking status: Former smoker Tobacco type: cigarettes Smoking end date: 05/09/20 Additional smoking assessment comments: cigarettes 1/2 ppd x 5 1/2 years Alcohol intake: former Substance use type: marijuana Other substance usage details: smoking and eatables daily Living arrangements: with roommate(s) Gender identity (if verbalized by the patient): Female Spiritual care concerns: No Anes - Eval Final PreProcedure Day of Procedure 12/14/22 07:51 Patient weight: overweight Heart: regular rate and rhythm Lungs: decreased breath sounds Airway: Mallampati scale class II Neurological: alert and oriented Last oral intake: >/= 8 hours ASA classification: III Emergent: no Anesthetic plan: proceed Anesthesia type and monitoring: general (givs vs lma) and standard monitoring Results Review: All pre-operative results and documents have been reviewed as part of the pre-operative evaluation. Informed Consent: The patient's anesthetic plan and its attendant risks and benefits were discussed with the patient/family/POA. Questions were solicited and answers provided to the satisfaction of the patient/family/POA.
--- NOTE | 2022-12-14 08:19 | WPDHPUPDATE1 ---
History and Physical Update Update Date/Time: 12/14/22 08:19 History and Physical has been reviewed, including an updated exam of the patient. There are NO changes in the patient's condition. Risks, benefits, and alternatives have been discussed and questions answered. Patient agrees to proceed with procedure. One of this patient's several complaints regarding her hand has been pain at a subcutaneous mass at the right volar wrist. This smooth rubbery mass is consistent with a ganglion cyst. She pointed this out again today indicating that it causes her pain and is one reason she could not do her usual job. We will add removal of this 1.5 cm mass from her wrist to today's consent. Her Teo test is normal. Her risks are essentially the same as for the other procedures.
[2022-12-14] MEDS: LIDO 1%/EPINEPHRINE 1:100,000 50 ML VIAL 10 ML INFILTRATE (09:02)
[2022-12-14 09:59] VITALS: BP 116/40; PULSE 74; RESP 16; O2SAT 97
--- NOTE | 2022-12-14 10:23 | P.OP_ITS ---
Procedure Note - Detailed Date of Procedure 12/14/22 Pre-op Diagnosis right carpal and cubital tunnel syndrome and right volar wrist subcutaneous mass. Post-op Diagnosis Same Procedure Performed Right open carpal tunnel release Right ulnar neuroplasty at the elbow Excision right volar wrist ganglion cyst Surgeon Carroll Watson MD Anesthesia MAC Description of Procedure The right carpal tunnel right cubital tunnel and right volar wrist ganglion cyst were marked on the patient in the holding area with her consent. She was taken to the operating room where she was placed supine on the operating table. The right upper extremity was prepped and draped in usual fashion. She was given IV sedation. The sites were marked for incision. Each of these was infiltrated with 1% lidocaine with epinephrine. The extremity was exsanguinated and the tourniquet inflated to 250 mmHg. Surgery began with the excision of ganglion cyst with a small hockey-stick incision over the mass and this was carefully dissected past the radial artery to its base at the radial carpal joint. The cyst was avulsed at that point. A few bleeding points were cauterized. The wound was closed with a running 5 0 nylon suture. Attention was turned to the right carpal tunnel where the incision was made as marked. Blunt dissection revealed the palmar aponeurosis. This was incised with a 15. Blade revealing the transverse retinaculum. This was also incised with a 15 blade. Under 3 point retraction the retinaculum was dissected distally and proximally for complete release. There was no unusual anatomy noted. The skin was closed with interrupted 5 0 nylon suture at the termination of the case. The elbow was flexed and supported on folded towels. The incision was made as marked and dissection revealed the ulnar nerve displaced anteriorly in front of triceps muscle. The nerve did not ride atop the medial epicondyle. The nerve was dissected distally and proximally for complete release. Did not subluxate on top the medial epicondyle with flexion and extension of the elbow and we did not do a transposition. The tourniquet was released bleeding points were electrocoagulated. The wound closure was accomplished with intradermal 3-0 Monocryl suture cross hatching foley. The skin was closed with a running i ntradermal 3-0 Monocryl to close the skin. Usual bandage was applied. She was discharged from the operating room in stable condition per Estimated Blood Loss 2 Tourniquet Time 31 Drains No Packing No Pathology None sent Complications No immediate complications Condition Stable Disposition Same day
[2022-12-14 10:25] VITALS: BP 104/52; PULSE 52; RESP 16
[2022-12-14] MEDS: oxyCODONE HCL (*CRX) 5 MG TAB IR PO (10:26)
[2022-12-14 10:50] VITALS: BP 112/60; PULSE 59; RESP 16
== END 2022-12-14 10:59 | disposition home or self-care (01) ==
PROVIDERS: Visit Provider Plastic Surgery
PROC: (CPT 64721; principal; 2022-12-14 08:30)
DX: G56.01 Carpal tunnel syndrome, right upper limb (principal); G56.21 Lesion of ulnar nerve, right upper limb; M67.431 Ganglion, right wrist; J45.909 Unspecified asthma, uncomplicated; G40.909 Epilepsy, unspecified, not intractable, without status epilepticus; F41.9 Anxiety disorder, unspecified; F32.A Depression, unspecified; F12.90 Cannabis use, unspecified, uncomplicated; Z87.891 Personal history of nicotine dependence; Z79.51 Long term (current) use of inhaled steroids
CPT/HCPCS: 64721; 64718; 25111; A9270; J2250; J2704; J3010; J7120

== ENCOUNTER 2023-01-31 11:40 | Outpatient (CLI) | payer OTHER, SELFPAY ==
--- NOTE | ~2023-01-31 | XR_ITS ---
EXAMINATION: XR sacroiliac joints min 3V DATE: 01/31/2023 12:11 INDICATION: Other specified abnormal immunological findings. TECHNIQUE: 3 views of the sacroiliac joints were obtained. COMPARISON: None. FINDINGS: There is lumbar levocurvature and moderate spondylosis. No fracture. There is mild osteoart hritis of the sacroiliac joints characterized by tiny osteophytes. No evidence of inflammatory arthro mary. IMPRESSION: 1. Mild osteoarthritis of the sacroiliac joints. Reviewed, dictated and finalized at location E.
--- NOTE | ~2023-01-31 | XR_ITS ---
EXAMINATION: XR lumbar spine 2-3V DATE: 01/31/2023 12:11 INDICATION: Low back pain. TECHNIQUE: 3 views of lumbar spine were obtained. COMPARISON: None. FINDINGS: There is 7 degrees levocurvature of lumbar spine. There is 3 mm retrolisthesis of L1 on L2. There is 4 mm anterolisthesis of L4 on L5. Vertebral body heights are normal. There is moderately de creased disc height at T11-T12 and T12-L1, mildly decreased disc height at L1-L2 and L4-L5, and moder ately decreased disc height at L5-S1. There are endplate osteophytes at most levels. There is multile javy facet joint osteoarthritis, severe in lower lumbar spine. IMPRESSION: 1. Moderate lumbar spondylosis. Reviewed, dictated and finalized at location E.
[2023-01-31 12:19] LABS: Uric Acid 2.3 mg/dL (2.5-7.5)
[2023-01-31 12:22] LABS: Complement C3 68 mg/dL (88-165)
[2023-02-04 21:41] LABS: ANCA Screen Negative (Negative); Myeloperoxidase Ab <1.0 AI (<1.0); Proteinase-3 Ab <1.0 AI (<1.0); S cerevisiae Ab (IgA) 12.3 U (<=20.0); S cerevisiae Ab (IgG) 14.9 U (<=20.0)
[2023-02-04 22:00] LABS: Anti Cyclic Citrullinated Pept <16 Units (<20)
== END 2023-01-31 11:41 | disposition home or self-care (01) ==
PROVIDERS: PCP Nurse Practitioner Family; Visit Provider Internal Medicine
DX: R76.8 Other specified abnormal immunological findings in serum (principal); M19.90 Unspecified osteoarthritis, unspecified site; Z71.89 Other specified counseling; Z79.899 Other long term (current) drug therapy
CPT/HCPCS: 36415; 72100; 72202; 84550; 86036; 86160; 86200; 86671

== ENCOUNTER 2023-02-23 14:32 | Outpatient (CLI) | payer OTHER, SELFPAY ==
--- NOTE | ~2023-02-23 | US_ITS ---
US renal BI 02/23/2023 15:21 Procedure: Realtime transabdominal ultrasound of the kidneys and bladder. Indication: Flank pain Comparison: No prior studies for comparison. Findings: Renal echotexture is normal bilaterally without hydronephrosis, contour deforming mass or r enal calculus. The right kidney measures 11.7 cm and left kidney measures 11.2 cm. Bladder within no rmal limits. Impression: 1: Unremarkable renal ultrasound. No stones, masses or hydronephrosis. Reviewed, dictated and finalized at location A. Impression: 1: Unremarkable renal ultrasound. No stones, masses or hydronephrosis.
== END 2023-02-23 14:33 | disposition home or self-care (01) ==
LOC: ANHIMG 14:36
PROVIDERS: PCP Nurse Practitioner Family; Visit Provider Nurse Practitioner Family
DX: R10.9 Unspecified abdominal pain (principal); N32.81 Overactive bladder
CPT/HCPCS: 76775

== ENCOUNTER 2023-05-25 11:38 | Emergency (ER) | payer OTHER, SELFPAY ==
[2023-05-25 11:46] VITALS: BP 105/70; PULSE 76; RESP 16; TEMP 36.6; O2SAT 100
[2023-05-25 12:05] LABS: Appearance Urine Cloudy (Clear); Bacteria Urine 4+ /hpf; Bilirubin Urine Negative (Negative); Blood Urine 1+ (Negative); Color Urine Yellow (Yellow); Glucose Urine UA Negative (Negative); Ketones Urine Trace mg/dL (Negative); Leukocyte Esterase Ur Trace LEU/UL (Negative); Nitrate Urine Positive (Negative); Non Pathogenic Casts 0-2; Protein Urine Negative (Negative); Specific Grav Ur 1.019 (1.001-1.035); Squamous Epithelial Cell Urine None seen /hpf (Few)
[2023-05-25 12:09] LABS: Add Urine Microscopic? YES
[2023-05-25 12:29] LABS: Influenza A QL RT-PCR Negative (Negative); Influenza B QL RT-PCR Negative (Negative); SARS-CoV-2 RNA PCR Negative (Negative)
--- NOTE | 2023-05-25 13:55 | ED.GENADULT ---
HPI - General Adult General Chief complaint: Unspecified Stated complaint: ear pain, UTI Time Seen by Provider: 05/25/23 12:46 History of Present Illness HPI narrative: Thom Zamora is a 47 y/o female who presents with complaints of bilateral ear pain/ congestion for 1 week and painful urination for a month. SHe denies any nausea/vomiting/ abdominal pain/ flank pain/ fever/chills. Related Data Home Medications Medication Instructions Recorded Confirmed multivitamin 1 tablet PO DAILY 03/02/21 02/09/23 fluticasone propionate 50 1 spray intranasal DAILY 01/11/22 02/09/23 mcg/actuation nasal spray,suspension (Flonase Allergy Relief) olanzapine 10 mg tablet 10 mg PO DAILY 01/11/22 02/09/23 deutetrabenazine 9 mg tablet 9 mg PO DAILY 05/10/22 02/09/23 (Austedo) Allergies Allergy/AdvReac Type Severity Reaction Status Date / Time Sulfa (Sulfonamide AdvReac Muscle Pain Verified 05/25/23 12:38 Antibiotics) Review of Systems Review of Systems: CONSTITUTIONAL: Denies fever, chills, or sweats. EYES: Denies visual changes, redness, or discharge. ENT: Denies sore throat,reports ear pain and congestion for a week. CARDIOVASCULAR: Denies chest pain, palpitations, or edema. RESPIRATORY: Denies cough or dyspnea. GASTROINTESTINAL: Denies abdominal pain, nausea, vomiting, or diarrhea. GENITOURINARY: reports dysuria for a month or hematuria. SKIN: Denies rash or itching. MUSCULOSKELETAL: Denies back pain, joint pain, or myalgia. NEUROLOGIC: Denies headache, numbness, dizziness, or weakness. PSYCHIATRIC: Denies anxiety or depression. [facility] Past Medical History Medical History ESTHER positive Anxiety Asthma Claustrophobia Depression Inflammatory arthropathy Seizures Surgical History Surgical History History of History of hernia repair History of tubal ligation Family History Family History Mother Family history of mental disorder Father Family history of diabetes mellitus in first degree relative Family history of coronary artery disease Other Arthritis Asthma Cancer Depression Diabetes mellitus Heart disease High cholesterol Hypertension Social History Social History Smoking status: Former smoker Tobacco type: cigarettes Smoking end date: 05/09/20 Additional smoking assessment comments: cigarettes 1/2 ppd x 5 1/2 years Alcohol intake: former Substance use type: marijuana Other substance usage details: smoking and eatables daily Living arrangements: with roommate(s) Gender identity (if verbalized by the patient): Female Spiritual care concerns: No Exam Narrative: GENERAL: Well-appearing, well-nourished, and in no acute distress. HEAD: Normocephalic, atraumatic. EYES: PERRLA and EOMI. ENT: Nares clear, no rhinorrhea or epistaxis. Mucous membranes moist. Oropharynx without tonsillar hypertrophy exudate or other lesions. left TM + erythemic and bulging right TM pearly nance NECK: Supple. No adenopathy or masses. No carotid bruits or JVD CHEST: Clear to auscultation. No respiratory distress. No wheezes rales or rhonchi HEART: Regular rate and rhythm. No murmur heard. Normal peripheral pulses. ABDOMEN: Soft, nontender, nondistended, normal active bowel sounds. EXTREMITIES: Normal range of motion. No edema. SKIN: Warm, dry, no rash. NEURO: No focal deficits. Alert and oriented x3. PSYCH: Normal mood and affect. Course Vital Signs Vital signs: Vital Signs Temperature 36.6 C 05/25/23 11:46 Pulse Rate 76 05/25/23 11:46 Respiratory Rate 16 05/25/23 11:46 Blood Pressure 105/70 05/25/23 11:46 Pulse Oximetry 100 05/25/23 11:46 Oxygen Delivery Room Air 05/25/23 11:46 Temperature 36.6 C 05/25/23 11:46 Pulse
[2023-05-25] MEDS: ONDANSETRON HCL ODT 4 MG TABLET PO (14:14)
[2023-05-25] MEDS: KETOROLAC 30 MG/ML VIAL (*BKC) IM (14:14)
[2023-05-25] MEDS: CEPHALEXIN 500 MG CAPSULE PO (14:14)
[2023-05-25] MEDS: AMOXICILLIN/CLAVULANATE K 875-125 MG TAB 1 TABLET PO (14:19)
== END 2023-05-25 15:16 | disposition home or self-care (01) ==
PROVIDERS: Emergency Medicine; Emergency Provider Nurse Practitioner Family; PCP Nurse Practitioner Family
DX: N30.01 Acute cystitis with hematuria (principal); H66.92 Otitis media, unspecified, left ear; Z20.822 Contact with and (suspected) exposure to COVID-19; J45.909 Unspecified asthma, uncomplicated; Z87.891 Personal history of nicotine dependence
CPT/HCPCS: 81001; 87077; 87086; 87186; 87636; 96372; 99283; A9270; J1885

== ENCOUNTER 2024-02-16 23:10 | Emergency (ER) | payer OTHER, SELFPAY ==
[2024-02-16 23:12] VITALS: BP 115/75; PULSE 80; RESP 18; TEMP 36.6; O2SAT 100
--- NOTE | 2024-02-17 00:38 | PC.NURSE ---
Patient inquiring about wait time d/t needing to go pick someone up. Patient states, I'm not crying, dying, or doubled-over in pain. I think I'll just come back tomorrow . Patient ambulatory out of ED with steady gait and in no acute or obvious distress.
== END 2024-02-17 00:38 | disposition left against medical advice (07) ==
LOC: ANHED 02-17 00:42
PROVIDERS: PCP Nurse Practitioner Family
DX: R39.9 Unspecified symptoms and signs involving the genitourinary system (principal)
CPT/HCPCS: 99199

== ENCOUNTER 2024-02-20 16:29 | Emergency (ER) | payer OTHER, SELFPAY ==
--- NOTE | ~2024-02-20 | CT_ITS ---
EXAMINATION: CT abdomen pelvis wo con DATE: 02/20/2024 18:03 INDICATION: Low abdominal pain. TECHNIQUE: Computed tomography (CT) of the abdomen and pelvis was performed without intravenous contr ast. Automated exposure control and iterative reconstruction technique were employed. The dose-length product was 494.41 mGy-cm. COMPARISON: None. FINDINGS: The visualized portions of the lung bases demonstrate mild atelectasis. A calcified left braulio ng nodule and calcified left hilar lymph nodes are consistent with old granulomatous disease. No pleu ral effusion. The heart size is normal. There are coronary artery calcifications. No pericardial effu joleen. The liver and gallbladder are normal. Calcifications in the spleen are consistent with old gran ulomatous disease. The pancreas, adrenal glands, and kidneys are normal. There are no dilated loops o f bowel. The appendix is normal. There are no pathologically enlarged lymph nodes. There is no free i ntraperitoneal fluid. There is lumbar levocurvature. There is severe thoracic spondylosis and mild braulio mbar spondylosis. IMPRESSION: 1. No etiology for the patient's symptoms. Reviewed, dictated and finalized at location A.
[2024-02-20 16:39] VITALS: BP 164/84; PULSE 64; RESP 18; TEMP 36.5; O2SAT 99
[2024-02-20 16:51] LABS: BEDSIDEPREGUCG Negative (Negative)
[2024-02-20 17:18] LABS: Add Urine Microscopic? YES; Appearance Urine Cloudy (Clear); Bacteria Urine 4+ /hpf; Bilirubin Urine Negative (Negative); Blood Urine Negative (Negative); Color Urine Yellow (Yellow); Glucose Urine UA Negative (Negative); Ketones Urine Trace mg/dL (Negative); Leukocyte Esterase Ur Trace LEU/UL (Negative); Need Manual Microscopic Reviewed; Nitrate Urine Negative (Negative); Non Pathogenic Casts 0-2; Protein Urine Trace mg/dL (Negative); Specific Grav Ur 1.027 (1.001-1.035); Squamous Epithelial Cell Urine Moderate /hpf (Few); pH Urine 6.5 (5.0-9.0)
--- NOTE | 2024-02-20 17:37 | ED.FEMALEGU ---
HPI - Female Genitourinary General Chief complaint: Urogenital-Female Stated complaint: E COLI UTI Time Seen by Provider: 02/20/24 16:45 History of Present Illness HPI Narrative: Patient is 48-year-old presents to the with complaints of a urinary infection. She reports she has had chronic urinary tract infections and recently saw a urologist due to uterine prolapse, but the urologist did not do a urinalysis. Patient's symptoms include urgency, incontinence, lower abdominal pain, itching, malodorous, and cloudy urine. She endorses a history of seizures, for which she takes Tegretol, HTN and carpal tunnel syndrome. Pt denies fevers, shortness of breath, and chest pain. Related Data Home Medications Medication Instructions Recorded Confirmed multivitamin 1 tablet PO DAILY 03/02/21 06/15/23 fluticasone propionate 50 1 spray intranasal DAILY 01/11/22 06/15/23 mcg/actuation nasal spray,suspension (Flonase Allergy Relief) olanzapine 10 mg tablet 10 mg PO DAILY 01/11/22 06/15/23 deutetrabenazine 9 mg tablet 9 mg PO DAILY 05/10/22 06/15/23 (Austedo) Allergies Allergy/AdvReac Type Severity Reaction Status Date / Time hydroxychloroquine Allergy Mild Agitated Verified 02/16/24 23:12 peanut Allergy Anaphylaxis Verified 02/16/24 23:12 Sulfa (Sulfonamide AdvReac Muscle Pain Verified 02/16/24 23:12 Antibiotics) Review of Systems Review of Systems: All systems reviewed & are unremarkable except as noted in HPI and below PMFSH Past Medical History Medical History ESTHER positive Anxiety Asthma Claustrophobia Depression Inflammatory arthropathy Seizures Vitamin D deficiency Surgical History Surgical History History of History of hernia repair History of tubal ligation Family History Family History Mother Family history of mental disorder Father Family history of diabetes mellitus in first degree relative Family history of coronary artery disease Other Arthritis Asthma Cancer Depression Diabetes mellitus Heart disease High cholesterol Hypertension Social History Social History (Reviewed 02/20/24 @ 18:14 by CLINT Collazo Smoking status: Former smoker Tobacco type: cigarettes Smoking end date: 05/09/20 Additional smoking assessment comments: cigarettes 1/2 ppd x 5 1/2 years Alcohol intake: former Substance use type: marijuana Other substance usage details: smoking and eatables daily Living arrangements: with roommate(s) Gender identity (if verbalized by the patient): Female Spiritual care concerns: No Exam Narrative: GENERAL: Well appearing, well-nourished, non-toxic, in no acute distress. HEAD: Normocephalic, atraumatic. NECK: Supple. No adenopathy, no masses. RESPIRATORY: Airway patent, respirations nonlabored. Clear to auscultation bilaterally, no rales, rhonchi, wheezing. CARDIOVASCULAR: Regular rate and rhythm without murmurs, rubs, or gallops. Peripheral pulses 2+ and equal bilaterally. ABDOMINAL: Soft, mild tenderness in bilateral lower quadrants, nondistended, no hepatosplenomegaly. Normoactive BS. MUSCULOSKELETAL: Moves all extremities. Strength/ROM intact without gross deformities. SKIN: Warm, dry, normal color. No rashes. NEURO: A&O X3. Speech clear. Cranial nerves II-XII grossly intact. Steady gait. No ataxic movements. PSYCHIATRIC: Appropriate mood and affect. Normal interaction. Course Vital Signs Vital signs: Vital Signs Temperature 36.5 C 02/20/24 16:39 Pulse Rate 64 02/20/24 16:39 Respiratory Rate 18 02/20/24 16:39 Blood Pressure 164/84 H 02/20/24 16:39 Pulse Oximetry 99 02/20/24 16:39 Oxygen Delivery Room Air 02/20/24 16:39 Temperature 36.5 C 02/20/24 16:39 Pulse Rate 64 02/20/24 16:39 Respiratory Rate 18
[2024-02-20] MEDS: KETOROLAC 15 MG/ML VIAL (*BKC) IV PUSH (18:37)
[2024-02-20] MEDS: ONDANSETRON INJ 4 MG/2 ML VIAL IV PUSH (18:37)
[2024-02-20 18:40] VITALS: BP 126/83; PULSE 62; RESP 17; O2SAT 100
== END 2024-02-20 18:49 | disposition home or self-care (01) ==
PROVIDERS: Family Medicine; Emergency Provider Registered Nurse; PCP Nurse Practitioner Family
DX: N39.0 Urinary tract infection, site not specified (principal); F41.9 Anxiety disorder, unspecified; J45.909 Unspecified asthma, uncomplicated; F32.A Depression, unspecified
CPT/HCPCS: 74176; 81001; 81025; 87086; 87186; 96374; 96375; 99284; J1885; J2405

== ENCOUNTER 2024-03-02 09:10 | Emergency (ER) | payer OTHER, SELFPAY ==
[2024-03-02 09:13] VITALS: BP 137/84; PULSE 69; RESP 18; TEMP 36.4; O2SAT 99
[2024-03-02 09:42] LABS: Add Urine Microscopic? YES; Appearance Urine Clear (Clear); Bacteria Urine 1+ /hpf; Bilirubin Urine Negative (Negative); Blood Urine Negative (Negative); Color Urine Dark Yellow (Yellow); Glucose Urine UA Negative (Negative); Ketones Urine Negative (Negative); Leukocyte Esterase Ur 1+ LEU/UL (Negative); Nitrate Urine Negative (Negative); Non Pathogenic Casts 0-2; Protein Urine Negative (Negative); RBC Urine 0-2 /hpf (0-2); Specific Grav Ur 1.012 (1.001-1.035); Squamous Epithelial Cell Urine None Seen /hpf (Few); WBC Urine 21-50 /hpf (0-3); pH Urine 6.5 (5.0-9.0)
--- NOTE | 2024-03-02 10:06 | ED_ITS ---
HPI - General Adult General Chief complaint: Urogenital-Female Stated complaint: uti Time Seen by Provider: 03/02/24 09:18 History of Present Illness HPI narrative: patient is a 48-year-old female who presents ER with UTI symptoms. Treated last week for with Levaquin. Continues to have symptoms. Has history of E coli resistant to fluoroquinolones. No fevers or chills or sweats. Mild suprapubic pressure. She has dysuria and urinary frequency. Related Data Home Medications Medication Instructions Recorded Confirmed multivitamin 1 tablet PO DAILY 03/02/21 06/15/23 fluticasone propionate 50 1 spray intranasal DAILY 01/11/22 06/15/23 mcg/actuation nasal spray,suspension (Flonase Allergy Relief) olanzapine 10 mg tablet 10 mg PO DAILY 01/11/22 06/15/23 deutetrabenazine 9 mg tablet 9 mg PO DAILY 05/10/22 06/15/23 (Austedo) Allergies Allergy/AdvReac Type Severity Reaction Status Date / Time hydroxychloroquine Allergy Mild Agitated Verified 02/16/24 23:12 peanut Allergy Anaphylaxis Verified 02/16/24 23:12 Sulfa (Sulfonamide AdvReac Muscle Pain Verified 02/16/24 23:12 Antibiotics) Review of Systems Constitutional: Constitutional: Reports no additional constitutional complaints Genitourinary: Genitourinary: Denies hematuria, Reports nocturia, Reports dysuria and Denies flank pain PMFSH Past Medical History Medical History ESTHER positive Anxiety Asthma Claustrophobia Depression Inflammatory arthropathy Seizures Vitamin D deficiency Surgical History Surgical History History of History of hernia repair History of tubal ligation Family History Family History Mother Family history of mental disorder Father Family history of diabetes mellitus in first degree relative Family history of coronary artery disease Other Arthritis Asthma Cancer Depression Diabetes mellitus Heart disease High cholesterol Hypertension Social History Social History Smoking status: Former smoker Tobacco type: cigarettes Smoking end date: 05/09/20 Additional smoking assessment comments: cigarettes 1/2 ppd x 5 1/2 years Alcohol intake: former Substance use type: marijuana Other substance usage details: smoking and eatables daily Living arrangements: with roommate(s) Gender identity (if verbalized by the patient): Female Spiritual care concerns: No Exam Narrative: GENERAL: Well-appearing, well-nourished, and in no acute distress. HEAD: Normocephalic, atraumatic. ENT: Mucous membranes moist. CHEST: Clear to auscultation. No respiratory distress. HEART: Regular rate and rhythm. Normal peripheral pulses. ABDOMEN: Soft, nontender, nondistended, normal active bowel sounds. EXTREMITIES: Normal range of motion. No edema. NEURO: Alert and oriented x3. PSYCH: Normal mood and affect. Course Course Emergency Course: Urine culture shows fluoroquinolone resistance. Patient cannot take sulfa antibiotics, she does not like Macrobid, she will be placed on Augmentin. Vital Signs Vital signs: Vital Signs Temperature 97.6 F 03/02/24 09:13 Pulse Rate 69 03/02/24 09:13 Respiratory Rate 18 03/02/24 09:13 Blood Pressure 137/84 03/02/24 09:13 Pulse Oximetry 99 03/02/24 09:13 Oxygen Delivery Room Air 03/02/24 09:13 Temperature 97.6 F 03/02/24 09:13 Pulse Rate 69 03/02/24 09:13 Respiratory Rate 18 03/02/24 09:13 Blood Pressure 137/84 03/02/24 09:13 Pulse Oximetry 99 03/02/24 09:13 Oxygen Delivery Room Air 03/02/24 09:13 Medical Decision Making Vital Signs Vital Signs: Vital Signs Temperature 97.6 F 03/02/24 09:13 Pulse Rate 69 03/02/24 09:13 Respiratory Rate 18 03/02/24 09:13 Blood Pressure 137/84 03/02/24 09:13 Pulse Oximetry 99 03/02/24 09:13 Oxygen Delivery Room Air 03/02/24 09:13 Temperature 97.6 F 03/02/24 09:13 Pulse Rate 69 03/02/24 09:13 Respiratory Rate 18 03/02/24 09:13 Blood Pressure 137/84 03/02/24 09:13 Pulse Oximetry 99 03/02/24 09:13 Oxygen Delivery Room Air 03/02/24 09:13 Lab Data Labs: Lab Results 03/02/24 Range/Units 09:32 Urine Color Dark yellow (Yellow) Urine Appearance Clear (Clear) Urine pH 6.5 (5.0-9.0) Ur Specific [place] 1.012 (1.001-1.035) Urine Protein Negative (Negative) mg/dL Urine Glucose (UA) Negative (Negative) mg/dL Urine Ketones Negative (Negative) mg/dL Ur Blood (Man) Negative (Negative) Urine Nitrate Negative (Negative) Urine Bilirubin Negative (Negative) Urine Urobilinogen 1.0 (<2.0) mg/dL Leukocyte Esterase Rfl 1+ H (Negative) OC/UL Urine RBC 0-2 (0-2) /hpf Urine WBC 21-50 H (0-3) /hpf Ur Squamous Epith Cells None seen (Few) /hpf Urine Bacteria 1+ H /hpf Urine Casts 0-2 Discharge Plan Discharge Clinical Impression: UTI (urinary tract infection) Patient Disposition: Home, Self-Care Condition: Stable Instructions: Urinary Tract Infection in Women (ED) Additional Instructions: You should return to the emergency department if you develop severe nausea and vomiting and are unable to keep liquids down, if you develop severe back/flank or stomach pain, or if your symptoms are not clearly improving at home. Prescriptions: New amoxicillin-pot clavulanate 875-125 mg tablet 1 tablet PO Q12H Qty: 14 0RF No Action olanzapine 10 mg tablet 10 mg PO DAILY Patient Comments: per patient med list fluticasone propionate [Flonase Allergy Relief] 50 mcg/actuation spray,suspension 1 spray intranasal DAILY Rx Instructions: administer into each nostril methotrexate sodium 2.5 mg tablet 12.5 mg PO WEEKLY Qty: 25 1RF folic acid 1 mg tablet 1 mg PO DAILY Qty: 90 1RF albuterol sulfate 90 mcg/actuation HFA aerosol inhaler 2 puff INHALATION QID PRN (Reason: shortness of breath or wheezing) Qty: 6.7 0RF multivitamin Tablet 1 tablet PO DAILY [place] 9 mg Tablet 9 mg PO DAILY hydrocodone-acetaminophen 7.5-325 mg tablet 1 tablet PO Q6H PRN (Reason: pain) Qty: 8 0RF amoxicillin-pot clavulanate 875-125 mg tablet 1 tablet PO Q12H Qty: 14 0RF cephalexin 500 mg capsule 500 mg PO Q8H Qty: 15 0RF levofloxacin 250 mg tablet 250 mg PO DAILY Qty: 3 0RF phenazopyridine [Pyridium] 100 mg tablet 100 mg PO TID PRN (Reason: urinary pain) Qty: 10 0RF carbamazepine 200 mg tablet 200 mg PO .COMPLEX Qty: 180 0RF Rx Instructions: 200 mg PO 3 tabs by mouth every 12hrs; clonazepam 1 mg tablet 1 mg PO BID Qty: 30 0RF Follow-up/Referrals: Arielle,PARKER Simmons [Primary Care Provider] - 1 Week
== END 2024-03-02 10:27 | disposition home or self-care (01) ==
PROVIDERS: Emergency Provider Emergency Medicine; PCP Nurse Practitioner Family
DX: N39.0 Urinary tract infection, site not specified (principal); E55.9 Vitamin D deficiency, unspecified; F41.8 Other specified anxiety disorders; Z87.891 Personal history of nicotine dependence
CPT/HCPCS: 81001; 87086; 87186; 99283

== ENCOUNTER 2024-09-25 18:41 | Emergency (ER) | payer OTHER, SELFPAY ==
--- OUTSIDE RECORDS SUMMARY | 2024-09-25 18:44 | XMS_ITS | Data Portability ---
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 and irregular bleeding. We talked about the importance of continuing the medication. We discussed her abnormal uterine bleeding. we did not complete evaluation for abnormal uterine bleeding. We will obtain a pelvic ultrasound and she will return after the ultrasound discuss those results. She will follow-up in 3 months for the hormone replacement therapy in bleeding issue. We spent more than 15 minutes [id number]. We discussed these 2 complex issues. Filemon Toth MD [address], [place], [address], [facility] 06/16/2021 13:11:13 3 text/html 46yo [id number] for evaluation of vaginal discharge. Discharge comes and goes, clear/thin. Denies any vaginal itching, odors, or other associated symptomsUrinating more frequently. No burning, pain, fevers, n/v, or flank pains.Periods continue to be irregular. Irregular intervals. Lasting 6-7 days, 3 heavy/painful days. She was previously on HRT, ran out of refills. Hot flashes/night sweats have returned. Significant cramping during her periods.Sterlization for BCNot SA x 1 year BOB Mejia [address], [place], [address], [facility] 06/14/2022 14:19:36 OBGyn Episode Ob Episode Information Episode Created Date Number of Fetuses Patient Bloodtype Patient rh Status Prepregnancy Weight lbs Domestic Partner Domestic Partner Phone Father Name Car Pick Up Driver Status 02/16/20 21 1 CLOSED Fetus Data First Name Last Name Admitted to NICU Weight (g) Sex Living Outcome Pediatric Complications Fetus ID Race Codes Race Delivery Type , Spontane ous [id number] Jose Calculation Initial Jose Date Initial Exam Date Initial Exam Provider Initial Ultrasound Date Last Menstrual Period Date Ultra Sound Weeks Gestation 0 Eighteen To Twenty Week Jose Update Ultra Sound Date Fundal Height At Umbil Quickening Date Ultra Sound Latest Weeks Gestation Final Jose Confirmed By Final Jose Confirmed Date Final Jose Date Ultra Sound Latest Days Gestation 0 0 Menstrual History Last Menstrual Date Menses Monthly On Bcp Conception Prior Menses Frequency Hcg Plus Date Menarche Onset Age Delivery Information Delivery Date Delivery Type Labor Anesthesia Weeks Gestation Incision Type Labor Labor Length Hrs Delivered By Post Complications Tubal Sterilization Discharge Date Comments 0 Discharge Information Feeding Method Contraceptive Method Maternal HG B and HCT Levels Ob Episode Information Episode Created Date Number of Fetuses Patient Bloodtype Patient rh Status Prepregnancy Weight lbs Domestic Partner Domestic Partner Phone Father Name Car Pick Up Driver Status 02/16/20 21 1 CLOSED Fetus Data First Name Last Name Admitted to NICU Weight (g) Sex Living Outcome Pediatric Complications Fetus ID Race Codes Race Delivery Type , Induced [id number] Jose Calculation Initial Jose Date Initial Exam Date Initial Exam Provider Initial Ultrasound Date Last Menstrual Period Date Ultra Sound Weeks Gestation 0 Eighteen To Twenty Week Jose Update Ultra Sound Date Fundal Height At Umbil Quickening Date Ultra Sound Latest Weeks Gestation Final Jose Confirmed By Final Jose Confirmed Date Final Ojse Date Ultra Sound Latest Days Gestation 0 0 Menstrual History Last Menstrual Date Menses Monthly On Bcp Conception Prior Menses Frequency Hcg Plus Date Menarche Onset Age Delivery Information Delivery Date Delivery Type Labor Anesthesia Weeks Gestation Incision Type Labor Labor Length Hrs Delivered By Post Complications Tubal Sterilization Discharge Date Comments 1 Discharge Information Feeding Method Contraceptive Method Maternal HG B and HCT Levels Ob Episode Information Episode Created Date Number of Fetuses Patient Bloodtype Patient rh Status Prepregnancy Weight lbs Domestic Partner Domestic Partner Phone Father Name Car Pick Up Driver Status 02/16/20 21 1 CLOSED Fetus Data First Name Last Name Admitted to NICU Weight (g) Sex Living Outcome Pediatric Complications Fetus ID Race Codes Race Delivery Type F Full Term [id number] Repeat Jose Calculation Initial Jose Date Initial Exam Date Initial Exam Provider Initial Ultrasound Date Last Menstrual Period Date Ultra Sound Weeks Gestation 0 Eighteen To Twenty Week Jose Update Ultra Sound Date Fundal Height At Umbil Quickening Date Ultra Sound Latest Weeks Gestation Final Jose Confirmed By Final Jose Confirmed Date Final Jose Date Ultra Sound Latest Days Gestation 0 0 Menstrual History Last Menstrual Date Menses Monthly On Bcp Conception Prior Menses Frequency Hcg Plus Date Menarche Onset Age Delivery Information Delivery Date Delivery Type Labor Anesthesia Weeks Gestation Incision Type Labor Labor Length Hrs Delivered By Post Complications Tubal Sterilization Discharge Date Comments 7 37.1 preeclam p eitan Discharge Information Feeding Method Contraceptive Method Maternal HG B and HCT Levels Ob Episode Information Episode Created Date Number of Fetuses Patient Bloodtype Patient rh Status Prepregnancy Weight lbs Domestic Partner Domestic Partner Phone Father Name Car Pick Up Driver Status 02/16/20 21 1 CLOSED Fetus Data First Name Last Name Admitted to NICU Weight (g) Sex Living Outcome Pediatric Complications Fetus ID Race Codes Race Delivery Type , Induced [id number] Jose Calculation Initial Jose Date Initial Exam Date Initial Exam Provider Initial Ultrasound Date Last Menstrual Period Date Ultra Sound Weeks Gestation 0 Eighteen To Twenty Week Jose Update Ultra Sound Date Fundal Height At Umbil Quickening Date Ultra Sound Latest Weeks Gestation Final Jose Confirmed By Final Jose Confirmed Date Final Jose Date Ultra Sound Latest Days Gestation 0 0 Menstrual History Last Menstrual Date Menses Monthly On Bcp Conception Prior Menses Frequency Hcg Plus Date Menarche Onset Age Delivery Information Delivery Date Delivery Type Labor Anesthesia Weeks Gestation Incision Type Labor Labor Length Hrs Delivered By Post Complications Tubal Sterilization Discharge Date Comments 2 Discharge Information Feeding Method Contraceptive Method Maternal HG B and HCT Levels Ob Episode Information Episode Created Date Number of Fetuses Patient Bloodtype Patient rh Status Prepregnancy Weight lbs Domestic Partner Domestic Partner Phone Father Name Car Pick Up Driver Status 02/16/20 21 1 CLOSED Fetus Data First Name Last Name Admitted to NICU Weight (g) Sex Living Outcome Pediatric Complications Fetus ID Race Codes Race Delivery Type M Full Term [id number] Primary Jose Calculation Initial Jose Date Initial Exam Date Initial Exam Provider Initial Ultrasound Date Last Menstrual Period Date Ultra Sound Weeks Gestation 0 Eighteen To Twenty Week Jose Update Ultra Sound Date Fundal Height At Umbil Quickening Date Ultra Sound Latest Weeks Gestation Final Jose Confirmed By Final Jose Confirmed Date Final Jose Date Ultra Sound Latest Days Gestation 0 0 Menstrual History Last Menstrual Date Menses Monthly On Bcp Conception Prior Menses Frequency Hcg Plus Date Menarche Onset Age Delivery Information Delivery Date Delivery Type Labor Anesthesia Weeks Gestation Incision Type Labor Labor Length Hrs Delivered By Post Complications Tubal Sterilization Discharge Date Comments 8 40 Discharge Information Feeding Method Contraceptive Method Maternal HG B and HCT Levels
--- OUTSIDE RECORDS SUMMARY | 2024-09-25 18:44 | XMS_ITS ---
Author Organization [facility] Address [address] [place] [address] Care Team Providers Care Molding Line Assistant Name Role Phone Iris Guzmán Primary Care Provider Miracle Leigh Unavailable [phone] REASON FOR VISIT 4 week F/U Social History Sex Assigned At : Social History Observation Description Sex Assigned At Female Encounters Encounter Location Date Provider Diagnosis [facility] [place] [address] 09/17/2024 Miracle Leigh Plan Of Treatment Next Appt Details Provider Name:Miracle quevedo, 10/01/2024 03:40:00 PM, [address], [place], [address], Progress Notes * Ceci PACKEROB:[birth year] (48 yo F)Acc No.[id number]:09/17/2024 UNLOCKED PROGRESS NOTE Patient: Lelo Thom DIAZ Provider: Brit Leigh, MSN, LINK AND LINK KNITTING MACHINE OPERATOR, QUALITY CONTROL PROJECTIONIST-C :1975 A ge:48 Y S ex:Female Date:09/17/2024 Address:[address], [facility] Pcp:Iris Guzmán Subjective: * Chief Complaints: * 1 . 4 week F/U. * Medical History: Objective: * Vitals: Assessment: Plan: * Treatment: * * Electronic signature of Dara Leigh , [id number] on 09/25/2024 at 06:44 PM CDT Sign off status: Pending * Provider: Brit Leigh, MSN, LINK AND LINK KNITTING MACHINE OPERATOR, QUALITY CONTROL PROJECTIONIST-C Date: 0 09/17/2024 Generated for Renee crain/Dennis/eTjessicasmestefania on: 0 09/25/2024 06:44 PM CDT
--- OUTSIDE RECORDS SUMMARY | 2024-09-25 18:44 | XMS_ITS | Clinical Summary ---
Author Organization [facility] Address [address] [place] [address] Care Team Providers Care Clinical Social Worker Name Role Phone Unknown, Notinfile Primary Care Provider Unavail able Allergies Active Allergy Reactions Criticality Noted Date Comments Naproxen Other (See comments) Low 12/03/2019 Counter acts tegretol Cat Dander Unknown 03/10/2023 Peanut Diarrhea Low 03/10/2023 Medications acetaminophen (TYLENOL) 500 mg tablet Take 1-2 tablets (500-1,000 mg total) by mouth every 6 (six) hours as needed for pain. 30 tablet 018 Active beclomethasone (Qvar) 40 mcg/actuation inhaler 2 times daily 016 Active carisoprodoL (SOMA) 350 mg tablet TK 1 T PO BID FOR 7 DAYS 020 Active clonazePAM (KlonoPIN) 1 mg tablet Take 1 mg by mouth 2 (two) times a day 020 Active montelukast (SINGULAIR) 10 mg tablet 020 Active ondansetron ODT (ZOFRAN-ODT) 4 mg disintegrating tablet 020 Active QUEtiapine (SEROquel) 300 mg tablet 020 Active OLANZapine (ZyPREXA) 10 mg tablet 022 Active amoxicillin 500 mg tablet/capsule amoxicillin 500 mg tablet Active amoxicillin-clavu lanate (AUGMENTIN) 500-125 mg per tablet TAKE 1 TABLET BY MOUTH EVERY 8 HOURS FOR 7 DAYS 023 Active amoxicillin-clavu lanate (AUGMENTIN) 875-125 mg per tablet amoxicillin 875 mg-potassium clavulanate 125 mg tablet TAKE 1 TABLET BY MOUTH EVERY 12 HOURS FOR 10 DAYS Active azithromycin (ZITHROMAX) 250 mg tablet azithromycin 250 mg tablet Active budesonide-formot Antonia (SYMBICORT) 160-4.5 mcg/actuation inhaler Symbicort 160 mcg-4.5 mcg/actuation HFA aerosol inhaler INHALE 2 PUFFS BY MOUTH TWICE DAILY. Active chlorhexidine (PERIDEX) 0.12 % solution RINSE AND GARGLE 15 ML BY MOUTH TWICE DAILY Active clindamycin (CLEOCIN) 300 mg capsule clindamycin HCl 300 mg capsule TAKE 1 CAPSULE BY MOUTH EVERY 8 HOURS FOR 7 DAYS Active deutetrabenazine (Austedo) 9 mg tablet daily Active doxycycline 100 mg capsule doxycycline hyclate 100 mg tablet TAKE 1 TABLET BY MOUTH TWICE DAILY FOR 10 DAYS Active EPINEPHrine 0.3 mg/0.3 mL auto-injection syringe as needed Active estradioL (ESTRACE) 1 mg tablet Active famotidine (PEPCID) 20 mg tablet Active fluconazole (DIFLUCAN) 150 mg tablet Active Advair Diskus 250-50 mcg/dose diskus inhaler USE 1 INHALATION BY MOUTH TWICE DAILY Active fluticasone propion-salmetero L (ADVAIR DISKUS) 500-50 mcg/dose diskus inhaler Activ e HYDROcodone-aceta minophen (NORCO) 7.5-325 mg per tablet Take by mouth every 6 (six) hours as needed Active hydroxychloroquin e (PLAQUENIL) 200 mg tablet Take 2 tablets (400 mg total) by mouth daily Active ipratropium-albut Antonia (DUO-NEB) 0.5-2.5 mg/3 mL nebulizer solution Active loratadine (CLARITIN) 10 mg tablet Active losartan (COZAAR) 50 mg tablet Active medroxyPROGESTERo ne (PROVERA) 2.5 mg tablet Active meloxicam (MOBIC) 7.5 mg tablet Take 1 tablet (7.5 mg total) by mouth daily as needed Active methylPREDNISolon e (MEDROL) 4 mg tablet Take 1 tablet (4 mg total) by mouth daily 021 Active metroNIDAZOLE (METROGEL) 0.75 % (37.5mg/5 gram) vaginal gel Active naproxen (NAPROSYN) 500 mg tablet Active predniSONE (DELTASONE) 5 mg tablet Active progesterone (PROMETRIUM) 100 mg capsule Active rOPINIRole (REQUIP) 0.25 mg tablet Active traMADoL (ULTRAM) 50 mg tablet Active clonazePAM (KlonoPIN) 0.5 mg tablet TAKE ONE TPO EVERY NIGHT AT BEDTIME NEEDED FOR SLEEP-ONSET ANXIETY AND INSOMNIA 023 Active OLANZapine (ZyPREXA) 10 mg tablet Active OLANZapine (ZyPREXA) 20 mg tablet Active silver sulfadiazine (SILVADENE, SSD) 1 % cream 1 g daily 022 Active phenazopyridine (PYRIDIUM) 100 mg tablet every 8 hours Active oxyBUTYnin XL (DITROPAN-XL) 10 mg 24 hr tablet TAKE 1 TABLET BY MOUTH EVERY DAY IN THE MORNING FOR URINARY INCONTINENCE Active omeprazole (PriLOSEC) 40 mg capsule TAKE 1 CAPSULE BY MOUTH EVERY DAY FOR ABDOMINAL PAIN Active guaiFENesin (ROBITUSSIN) 200 mg tablet every 4 hours Active fluticasone propionate (FLONASE) 50 mcg/actuation nasal spray ADMINISTER 1 SPRAY INTO EACH NOSTRIL ONCE DAILY. 024 Active diclofenac sodium 3 % gel every 12 hours Activ e carBAMazepine (TEGretol) 200 mg tablet Take 3 tablets (600 mg total) by mouth 2 (two) times a day 180 tablet 11 024 2024 Active gabapentin (NEURONTIN) 300 mg capsule TAKE 1 CAPSULE(300 MG) BY MOUTH EVERY NIGHT 30 capsule 1 025 Active gabapentin (NEURONTIN) 300 mg capsule Take 1 capsule (300 mg total) by mouth nightly 30 capsule 5 024 2024 Discontinued Active Problems Problem Noted Date Diagnosed Date Seizure disorder 09/06/2016 Bronchial asthma 09/06/2016 Intrauterine contraceptive device threads lost 0 09/06/2016 Anaclitic depression 09/06/2016 Anxiety 09/06/2016 Bipolar I disorder, most recent episode depresse d 03/22/2016 Benign essential hypertension 05/09/2006 Immunizations Immunization Administration Dates Next Due Influenza, Trivalent, Preservative Free, Intramu scular 03/18/2008 Surgical History Surgery Date Site/Laterality Comments MD DELIVERY ONLY Section - (Added by TW Conv) SECTION HERNIA REPAIR Medical History Medical History Date Comments Epilepsy without status epil epticus, not intractable (HCC) Epilepsy - (Added by TW Conv ) Encounter for supervision of normal First trimester - (Added by TW Conv) Nervous system disease compl icating Seizure disorder in pregnanc y - (Added by TW Conv) History of other genital sys tem and obstetric disorders History of - (Adde d by TW Conv) Supervision of elderly multigravida AMA (advanced maternal age) multigravida 35+ - (Added by TW Conv) Abnormal hematological findi ng on screening of mother Abnormal quad screen - ( Added by TW Conv) Supervision of high risk pre gnancy in third trimester Supervision of high risk pre gnancy in third trimester - (Added by TW Conv) Maternal hypertension during Hypertension affecting - (Added by TW Conv) Respiratory system disease c omplicating Asthma affecting , antepartum - (Added by TW Conv) Encounter for screening for infections with predominantly sexual mode of transmission Screen for STD (sexually tra nsmitted disease) - (Added by TW Conv) Anxiety Arthritis Asthma Depression Allergic rhinitis Family History Medical History Relation Name Comments Arthritis Father Cancer Father Diabetes Father Heart disease Father Hyperlipidemia Father Mental illness Father Arthritis Mother Mental illness Mother Diabetes Sister Mental illness Sister Relation Name Status Comments Father Mother Sister Social History Tobacco Use Types Packs/Day Years Used Date Smoking Tobacco: Former Cigarettes Q uit: 1996 Smokeless Tobacco: Never Tobacco Cessation:Counseling Given: Not Answered Alcohol Use Standard Drinks/Week Comments Yes 0 (1 standard drink = 0.6 oz pur e alcohol) rare Comments No Sex and Gender Information Value Date Recorded Sex Assigned at Not on file Legal Sex Female 3:40 PM MERCHANDISE PLANNER Gender Identity Not on file Sexual Orientation Not on file Obstetrics History Last Filed Vital Signs Vital Sign Reading Time Taken Comments Blood Pressure 120/60 02/29/2024 2:57 PM CDT Pulse 85 02/29/2024 2:57 PM CDT Temperature 36.6 C (97.8 F) 07/08/2022 11:38 AM MERCHANDISE PLANNER Respiratory Rate 20 02/29/2024 2:57 PM CDT Oxygen Saturation 97% 02/29/2024 2:57 PM CDT Inhaled Oxygen Concentration - - Weight 68 kg (150 lb) 02/29/2024 2:57 PM CDT Height 154.9 cm (5' 1 ) 02/29/2024 2:57 PM CDT Body Mass Index 28.34 02/29/2024 2:57 PM CDT Plan of Treatment Health Maintenance Due Date Last Done Comments Breast Cancer Screening-Mammogram 1975 Cervical Cancer Screening 1975 Colon Cancer Screening-Colonoscopy 1975 Depression Screening 1975 DTaP/Tdap/Td Vaccine (1 - Tdap) 1984 Hepatitis B Screening 12/22/1991 Regular Well Visit/Exam 18-64 12/22/1991 Pneumococcal vaccine <65 (1 of 2 - PCV) 1992 Zoster Vaccine (1 of 2) 1992 Influenza Vaccine (Season Ended) 2025 02/06/2019, 02/26/2018, 03/18/2008 Hepatitis C Screening Completed 07/05/2016 Procedures Procedure Name Priority Date/Time Associated Diagnosis Comments SERUM HEPATITIS C AB Routine 07/05/2016 4:53 AM MERCHANDISE PLANNER from Last 3 Months or Most Recently Relevant to Health Maintenance Results * Serum Hepatitis C ab (07/05/2016 4:53 AM MERCHANDISE PLANNER) HCV ab Nonreactive CDR HIST ORICAL RESULTS Serum 07/05/2016 4:53 AM MERCHANDISE PLANNER Narrative CDR HISTORICAL RESULTS - 07/06/2016 4:20 AM MERCHANDISE PLANNER Interpretive Data Positive results should be confirmed by a molecular method. If positive, a second separately collected sample should be submitted for Hepatitis C Virus (HCV) RNA Detection and Quantitation by Real-Time Reverse Dry Cleaning Attendant-PCR (RT-PCR). Current interpretive data was last revised on 2016. Moisés Mendieta MD LAB BLOOD ORDERABLES Fi nal Result CDR HISTORICAL RESULTS from Last 3 Months or Most Recently Relevant to Health Maintenance Insurance [facility] Care Teams Clinical Social Worker Relationship Specialty Start Date End Date Unknown, Notinfile PCP - General 04/23/24
--- OUTSIDE RECORDS SUMMARY | 2024-09-25 18:44 | XMS_ITS | Referral Summary ---
Author Organization [facility] al Address [address] [place] [address] Care Team Providers Care Bilingual Middle School Teacher Name Role Phone Unknown, Notinfile Primary Care [...] Influenza, Trivalent, Preservative Free, Intramu scular 03/18/2008 Social History Tobacco Use Types Packs/Day Years Used Date Smoking Tobacco: Former Cigarettes Q uit: 1996 Smokeless Tobacco: Never Tobacco Cessation:Counseling Given: Not Answered Alcohol Use Standard Drinks/Week Comments Yes 0 (1 standard drink = 0.6 oz pur e alcohol) rare Comments No Sex and Gender Information Value Date Recorded Sex Assigned at Not on file Legal Sex Female 3:40 PM FIXER SUPERVISOR Gender Identity Not on file Sexual Orientation Not on file Last Filed Vital Signs Vital Sign Reading Time Taken Comments Blood Pressure 120/60 02/29/2024 2:57 PM CDT Pulse 85 02/29/2024 2:57 PM CDT Temperature 36.6 C (97.8 F) 07/08/2022 11:38 AM FIXER SUPERVISOR Respiratory Rate 20 02/29/2024 2:57 PM CDT Oxygen Saturation 97% 02/29/2024 2:57 PM CDT Inhaled Oxygen Concentration - - Weight 68 kg (150 lb) 02/29/2024 2:57 PM CDT Height 154.9 cm (5' 1 ) 02/29/2024 2:57 PM CDT Body Mass Index 28.34 02/29/2024 2:57 PM CDT Plan of Treatment Not on file Procedures Procedure Name Priority Date/Time Associated Diagnosis Comments SERUM HEPATITIS C AB Routine 07/05/2016 4:53 AM FIXER SUPERVISOR from Last 3 Months or Most Recently Relevant to Health Maintenance Results * Serum Hepatitis C ab (07/05/2016 4:53 AM FIXER SUPERVISOR) HCV ab Nonreactive CDR HIST ORICAL RESULTS Serum 07/05/2016 4:53 AM FIXER SUPERVISOR Narrative CDR HISTORICAL RESULTS - 07/06/2016 4:20 AM FIXER SUPERVISOR Interpretive Data Positive results should be confirmed by a molecular method. If positive, a second separately collected sample should be submitted for Hepatitis C Virus (HCV) RNA Detection and Quantitation by Real-Time Reverse Patch Worker-PCR (RT-PCR). Current interpretive data was last revised on 2016. Moisés Mendieta MD LAB BLOOD ORDERABLES Fi nal Result CDR HISTORICAL RESULTS from Last 3 Months or Most Recently Relevant to Health Maintenance Insurance [facility] Care Teams Bilingual Middle School Teacher Relationship Specialty Start Date End Date Unknown, Notinfile PCP - General 04/23/24
--- OUTSIDE RECORDS SUMMARY | 2024-09-25 18:45 | XMS_ITS | Patient Health Record ---
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 Blood pressure diastolic 88 mm Hg 09/03/2024 Height 61 in 09/03/2024 Blood pressure systolic 118 mm Hg 09/03/2024 Weight 178.2 lbs 09/03/2024 BMI 33.67 kg/m2 09/03/2024 Encounters Encounter Location Date Provider Diagnosis [facility] [address] [address] 01/15/2024 Iris Guzmán Adult general medical exam Z00.00 ; Exposure to potential infection Z20.9 ; Vaginal discharge N89.8 ; Screening for thyroid disorder Z13.29 ; Screening for hyperlipidemia Z13.220 ; Screening for metabolic disorder Z13.228 ; UTI symptoms R39.9 ; Screening for diabetes mellitus Z13.1 and Screening for deficiency anemia Z13.0 [facility] [address] [place] [address] 09/26/2023 Miracle Leigh Severe episode of recurrent major depressive disorder, without psychotic features F33.2 ; Post traumatic stress disorder (PTSD) F43.10 ; Medication monitoring encounter Z51.81 and Nutritional counseling Z71.3 [facility] [address] [address] 12/06/2023 Magnolia Whitfield Severe episode of recurrent major depressive disorder, without psychotic features F33.2 ; Post traumatic stress disorder (PTSD) F43.10 and Medication monitoring encounter Z51.[address] [address] 01/15/2024 Iris Guzmán Adult general medical exam Z00.00 ; UTI symptoms R39.9 ; Screening for hyperlipidemia Z13.220 ; Screening for metabolic disorder Z13.228 ; Screening for thyroid disorder Z13.29 ; Screening for diabetes mellitus Z13.1 ; Screening for deficiency anemia Z13.0 ; Exposure to potential infection Z20.9 and Vaginal discharge N89.[address] [place] [address] 02/08/2024 Miracleaubree Mendesan Severe episode of recurrent major depressive disorder, without psychotic features F33.2 ; Post traumatic stress disorder (PTSD) F43.10 and Medication monitoring encounter Z51.[address] [address] 02/09/2024 Iris Guzmán Nutritional counseling Z71.3 ; 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 ; UTI (urinary tract infection) N39.0 ; Seasonal allergic rhinitis, unspecified trigger J30.2 ; Osteoarthritis M19.90 and Contact dermatitis L25.[address] [place] [address] 03/18/2024 Miracle Leigh Major depression F32.9 ; Post traumatic stress disorder (PTSD) F43.10 ; Medication monitoring encounter Z51.81 and Nutritional counseling Z71.3 [facility] [address] [place] [address] 04/08/2024 Iris Arielle Nutritional counseling Z71.3 ; Pelvic cramping R10.2 ; Recurrent UTI N39.0 and Screening for cervical cancer Z12.[address] [address] 04/25/2024 Miracle Leigh Major depression F32.9 ; Post traumatic stress disorder (PTSD) F43.10 ; Medication monitoring encounter Z51.81 ; Nutritional counseling Z71.3 and Tardive dyskinesia G24.[address] [address] 05/02/2024 Raymond Martínez UTI symptoms R39.9 ; Obesity (BMI 30-39.9) E66.9 ; Nutritional counseling Z71.3 and Nicotine dependence, unspecified, uncomplicated F17.200 [place] [address] [place] [address] 05/20/2024 Alecia Roche Symptoms of urinary tract infection R39.9 ; Nutritional counseling Z71.3 and UTI (urinary tract infection) N39.[address] [address] 07/08/2024 Miracle Leigh Major depression F32.9 ; Post traumatic stress disorder (PTSD) F43.10 ; Medication monitoring encounter Z51.81 ; Nutritional counseling Z71.3 and Tardive dyskinesia G24.[address] [address] 08/08/2024 Miracle Leigh Major depression F32.9 ; Post traumatic stress disorder (PTSD) F43.10 ; Medication monitoring encounter Z51.81 ; Nutritional counseling Z71.3 and Tardive dyskinesia G24.01 [place] [address] [place] [address] 08/30/2024 Melissa Yeboah Post depression F53.0 [facility] [address] [place] [address] 09/03/2024 Iris Guzmán Over weight E66.3 ; Otitis media H66.90 ; Colon cancer screening Z12.11 ; UTI symptoms R39.9 and Sinusitis J32.[address] [address] 09/26/2023 Riley Dickerson Encounter for screening mammogram for breast cancer Z12.[address] [address] 10/03/2023 Iris Guzmán Encounter for screening for malignant neoplasm of cervix Z12.[address] [address] 10/05/2023 Miracle Leigh Severe episode of recurrent major depressive disorder, without psychotic features F33.2 [facility] [address] [place] [address] 10/12/2023 Miracle Leigh Severe episode of recurrent major depressive disorder, without psychotic features F33.[address] [address] 10/12/[address] [address] 10/17/[address] [address] 10/26/2023 Miracle Leigh Severe episode of recurrent major depressive disorder, without psychotic features F33.[address] [address] 11/27/2023 Iris Guzmán [address] [address] 11/27/2023 Magnolia Whitfield Severe episode of recurrent major depressive disorder, without psychotic features F33.2 and Post traumatic stress disorder (PTSD) F43.[address] [address] 01/22/2024 Iris Guzmán Urinary tract infection N39.[address] [address] 02/02/2024 Miracle Leigh Severe episode of recurrent major depressive disorder, without psychotic features F33.2 [facility] [address] [address] 02/13/2024 Iris Guzmán [facility] [address] [place] [address] 04/11/2024 Iris Guzmán UTI symptoms R39.[address] [address] 05/06/2024 Iris Guzmán [address] [address] 05/07/2024 Raymond Martínez UTI (urinary tract infection) N39.0 [facility] [address] [address] 05/23/2024 Iris Guzmán [address] [address] 06/03/2024 Miracle Reese Tardive dyskinesia G24.[address] [address] 06/03/2024 Miracle Reese Tardive dyskinesia G24.[address] [address] 06/04/2024 Miracle Reese Tardive dyskinesia G24.01 [facility] [address] [address] 07/01/2024 Miracle Reese Tardive dyskinesia G24.01 ; Major depression F32.9 and Post traumatic stress disorder (PTSD) F43.[address] [place] [address] 08/01/2024 Miracle Leigh Major depression F32.9 and Post traumatic stress disorder (PTSD) F43.[address] [address] 08/12/[address] [address] 08/12/2024 Miracle Leigh Tardive dyskinesia G24.01 [facility] [address] [place] [address] 08/15/2024 Miracleaubree ChristinaReese [address] [address] 08/22/[address] [address] 09/04/2024 Iris Guzmán [facility] [address] [place] [address] 09/17/[address] [address] 09/17/2024 Miracle Leigh Post traumatic stres s disorder (PTSD) F43.10 and Tardive dyskinesia G24.01 [facility] [address] [address] 09/20/2024 Iris Guzmán Assessments Encounter Date Diagnosis (ICD Code) Assessment Notes Treatment Notes Treatment Clinical Notes Section Notes 02/02/2024 Severe episode of recurrent major depressive disorder, without psychotic features (ICD-10 - F33.2) 12/06/2023 Severe episode of recurrent major depressive disorder, without psychotic features (ICD-10 - F33.2) Reasons, potential benefits, potential risks, interactions and side effects of all medications were discussed. The Patient/Guardian asked appropriate questions, appeared to understand the answers, and decided to accept the treatment and continue being followed. Alternatives and expected course without treatment were reviewed. The Patient/Guardian is aware of the need to contact the office or return for an earlier appointment if any problems or concerns arise. May also contact the 24-hour crisis hotline (R), refer to the closest emergency room or call 911 if new symptoms arise of existing symptoms worsen. The Patient/Guardian is aware that this would apply to symptoms like: suicidal ideation, homicidal ideation, high risk behaviors, manic symptoms, psychotic symptoms, physical symptoms, or any other symptoms that may be dangerous to self or others. Greater than 50% of time spent on coordination and counseling where psychopharmacology as well as psychotherapeutic interventions were discussed along with review of treatments in the past. Education provided concerning need for adequate hydration. Patient/Guardian verbalized understanding of education, treatment plan and follow up. Follow-up appt performed 100% telephonically with client consent. Unable to determine movement status, unable to assess appearance, affect, AIMS, or vital signs. Follow up in 2 MO or sooner as needed. May self-administer or be administered own oral medication per [facility]. Provided informed consent with understanding of side effects, risks and benefits as well as alternative treatments as previously discussed and with the above recommended medications ang other aspects of the treatment program. Agrees to return sooner if symptoms worsen or suicidal or homicidal ideations occur. support and education provided concerning illness and treatment plan, risks and benefits, pt verbalized understanding of the same and agreeable --mood has been stable, denies mood swings, focused on physical complaints, allergic to dogs, feels meds have been working well. --continue Austedo, olanzapine, carbamazepine for mood swings, paranoia, evaluate at follow up 11/27/2023 Severe episode of recurrent major depressive disorder, without psychotic features (ICD-10 - F33.2) 10/26/2023 Severe episode of recurrent major depressive disorder, without psychotic features (ICD-10 - F33.2) 09/26/2023 Encounter for screening mammogram for breast cancer (ICD-10 - Z12.31) 09/26/2023 Severe episode of recurrent major depressive disorder, without psychotic features (ICD-10 - F33.2) Increased for mood instability and paranoia. Discussed r/b/se. 09/26/2023 Post traumatic stress disorder (PTSD) (ICD-10 - F43.10) Continue at this time as client reports she is doing well. Discussed long-term use and memory concerns in length. Client to discuss with neurology. [place] plan[place]. Discussed with client: Benzodiazepines are not recommended for long-term use due to potent and dangerous side effects that include increased drowsiness, memory impairment, increased irritability, mood changes, and worsening of PTSD symptoms. Benzodiazepines increase respiratory depression which can aggravate conditions such as sleep apnea and COPD leading to possible . They should also never be combined with alcohol, pain medications (especially opioids), or street drugs because this can lead to overdose and possible . If you are under the influence of benzodiazepines while operating a motor vehicle and are involved in a car accident you can be charged with driving while intoxicated. Benzodiazepine use increases unsteady gait thereby increasing the risk of falls, broken bones, and concussions. Benzodiazepine use is intended for short-term use, up to 3 weeks at most. Long-term use of benzos can lead to dependence, rebound anxiety/agitation, and withdrawal symptoms that include sleep disturbance, irritability, increased tension and anxiety, panic attacks, hand tremor, sweating, difficulty in concentration, dry retching, and nausea, some weight loss, palpitations, headache, muscular pain and stiffness, and a host of perceptual changes. 09/17/2024 Post traumatic stress disorder (PTSD) (ICD-10 - F43.10) 09/03/2024 Otitis media (ICD-10 - H66.90) 09/03/2024 Over weight (ICD-10 - E66.3) 08/01/2024 Major depression (ICD-10 - F32.9) 08/12/2024 Tardive dyskinesia (ICD-10 - G24.01) 08/08/2024 Major depression (ICD-10 - F32.9) carbamazepine filled by neurology Sees neuro every 3-9 months. Sees her in 2 months ago. 07/08/2024 Major depression (ICD-10 - F32.9) carbamazepine filled by neurology Sees neuro in the next 1-2 weeks 07/01/2024 Tardive dyskinesia (ICD-10 - G24.01) 06/04/2024 Tardive dyskinesia (ICD-10 - G24.01) 06/03/2024 Tardive dyskinesia (ICD-10 - G24.01) 06/03/2024 Tardive dyskinesia (ICD-10 - G24.01) 05/20/2024 Symptoms of urinary tract infection (ICD-10 - R39.9) 05/07/2024 UTI (urinary tract infection) (ICD-10 - N39.0) 05/02/2024 Obesity (BMI 30-39.9) (ICD-10 - E66.9) 05/02/2024 UTI symptoms (ICD-10 - R39.9) Follow with urology as recommended. 04/25/2024 Major depression (ICD-10 - F32.9) 04/08/2024 Pelvic cramping (ICD-10 - R10.2) 04/08/2024 Nutritional counseling (ICD-10 - Z71.3) will request records from [facility] 03/18/2024 Major depression (ICD-10 - F32.9) Increase for movements. Discussed r/b/se. 04/11/2024 UTI symptoms (ICD-10 - R39.9) 01/22/2024 Urinary tract infection (ICD-10 - N39.0) 10/05/2023 Severe episode of recurrent major depressive disorder, without psychotic features (ICD-10 - F33.2) 10/03/2023 Encounter for screening for malignant neoplasm of cervix (ICD-10 - Z12.4) Patient Educated with: Learning about Cervical Cancer Screenings.pdf (Learning about Cervical Cancer Screenings.pdf) 08/30/2024 Post depression (ICD-10 - F53.0) 02/09/2024 Nutritional counseling (ICD-10 - Z71.3) 02/08/2024 Severe episode of recurrent major depressive disorder, without psychotic features (ICD-10 - F33.2) [place] agreement to continue current regimen at this time and monitor internal restlessness. --mood has been stable, denies mood swings, focused on physical concerns which she is working with PCP and specialists on per client. --continue Austedo, olanzapine, carbamazepine for mood swings, paranoia, evaluate at follow up 01/15/2024 Adult general medical exam (ICD-10 - Z00.00) 01/15/2024 UTI symptoms (ICD-10 - R39.9) 01/15/2024 Adult general medical exam (ICD-10 - Z00.00) 10/12/2023 Severe episode of recurrent major depressive disorder, without psychotic features (ICD-10 - F33.2) 01/15/2024 Screening for hyperlipidemia (ICD-10 - Z13.220) 01/15/2024 Exposure to potential infection (ICD-10 - Z20.9) 02/08/2024 Post traumatic stress disorder (PTSD) (ICD-10 - F43.10) PDMP checked without concerns. Discussed long-term use and memory concerns in length. Client to discuss with neurology. Client agreeable to this plan. Discussed with client: Benzodiazepines are not recommended for long-term use due to potent and dangerous side effects that include increased drowsiness, memory impairment, increased irritability, mood changes, and worsening of PTSD symptoms. Benzodiazepines increase respiratory depression which can aggravate conditions such as sleep apnea and COPD leading to possible . They should also never be combined with alcohol, pain medications (especially opioids), or street drugs because this can lead to overdose and possible . If you are under the influence of benzodiazepines while operating a motor vehicle and are involved in a car accident you can be charged with driving while intoxicated. Benzodiazepine use increases unsteady gait thereby increasing the risk of falls, broken bones, and concussions. Benzodiazepine use is intended for short-term use, up to 3 weeks at most. Long-term use of benzos can lead to dependence, rebound anxiety/agitation, and withdrawal symptoms that include sleep disturbance, irritability, increased tension and anxiety, panic attacks, hand tremor, sweating, difficulty in concentration, dry retching, and nausea, some weight loss, palpitations, headache, muscular pain and stiffness, and a host of perceptual changes. 02/09/2024 Urgency-frequency syndrome (ICD-10 - N32.81) 05/20/2024 Nutritional counseling (ICD-10 - Z71.3) 04/08/2024 Recurrent UTI (ICD-10 - N39.0) will request records from Urologist 03/18/2024 Post traumatic stress disorder (PTSD) (ICD-10 - F43.10) PDMP checked without concerns. May fill 04/08/24. Discussed long-term use and memory concerns in length. Client to discuss with neurology. Client agreeable to this plan. Discussed with client: Benzodiazepines are not recommended for long-term use due to potent and dangerous side effects that include increased drowsiness, memory impairment, increased irritability, mood changes, and worsening of PTSD symptoms. Benzodiazepines increase respiratory depression which can aggravate conditions such as sleep apnea and COPD leading to possible . They should also never be combined with alcohol, pain medications (especially opioids), or street drugs because this can lead to overdose and possible . If you are under the influence of benzodiazepines while operating a motor vehicle and are involved in a car accident you can be charged with driving while intoxicated. Benzodiazepine use increases unsteady gait thereby increasing the risk of falls, broken bones, and concussions. Benzodiazepine use is intended for short-term use, up to 3 weeks at most. Long-term use of benzos can lead to dependence, rebound anxiety/agitation, and withdrawal symptoms that include sleep disturbance, irritability, increased tension and anxiety, panic attacks, hand tremor, sweating, difficulty in concentration, dry retching, and nausea, some weight loss, palpitations, headache, muscular pain and stiffness, and a host of perceptual changes. 04/25/2024 Post traumatic stress disorder (PTSD) (ICD-10 - F43.10) PDMP checked without concerns. September fill 05/08/2024 Discussed long-term use and memory concerns in length. Client to discuss with neurology. Client agreeable to this plan. Discussed with client: Benzodiazepines are not recommended for long-term use due to potent and dangerous side effects that include increased drowsiness, memory impairment, increased irritability, mood changes, and worsening of PTSD symptoms. Benzodiazepines increase respiratory depression which can aggravate conditions such as sleep apnea and COPD leading to possible . They should also never be combined with alcohol, pain medications (especially opioids), or street drugs because this can lead to overdose and possible . If you are under the influence of benzodiazepines while operating a motor vehicle and are involved in a car accident you can be charged with driving while intoxicated. Benzodiazepine use increases unsteady gait thereby increasing the risk of falls, broken bones, and concussions. Benzodiazepine use is intended for short-term use, up to 3 weeks at most. Long-term use of benzos can lead to dependence, rebound anxiety/agitation, and withdrawal symptoms that include sleep disturbance, irritability, increased tension and anxiety, panic attacks, hand tremor, sweating, difficulty in concentration, dry retching, and nausea, some weight loss, palpitations, headache, muscular pain and stiffness, and a host of perceptual changes. 05/02/2024 Nutritional counseling (ICD-10 - Z71.3) 07/01/2024 Major depression (ICD-10 - F32.9) 07/08/2024 Post traumatic stress disorder (PTSD) (ICD-10 - F43.10) PDMP checked without concerns. May fill. Discussed long-term use and memory concerns in length. Client to discuss with neurology. Client agreeable to this plan. Discussed with client: Benzodiazepines are not recommended for long-term use due to potent and dangerous side effects that include increased drowsiness, memory impairment, increased irritability, mood changes, and worsening of PTSD symptoms. Benzodiazepines increase respiratory depression which can aggravate conditions such as sleep apnea and COPD leading to possible . They should also never be combined with alcohol, pain medications (especially opioids), or street drugs because this can lead to overdose and possible . If you are under the influence of benzodiazepines while operating a motor vehicle and are involved in a car accident you can be charged with driving while intoxicated. Benzodiazepine use increases unsteady gait thereby increasing the risk of falls, broken bones, and concussions. Benzodiazepine use is intended for short-term use, up to 3 weeks at most. Long-term use of benzos can lead to dependence, rebound anxiety/agitation, and withdrawal symptoms that include sleep disturbance, irritability, increased tension and anxiety, panic attacks, hand tremor, sweating, difficulty in concentration, dry retching, and nausea, some weight loss, palpitations, headache, muscular pain and stiffness, and a host of perceptual changes. 08/08/2024 Post traumatic stress disorder (PTSD) (ICD-10 - F43.10) PDMP checked without concerns. May fill. Discussed long-term use and memory concerns in length. Client to discuss with neurology. Client agreeable to this plan. Discussed with client: Benzodiazepines are not recommended for long-term use due to potent and dangerous side effects that include increased drowsiness, memory impairment, increased irritability, mood changes, and worsening of PTSD symptoms. Benzodiazepines increase respiratory depression which can aggravate conditions such as sleep apnea and COPD leading to possible . They should also never be combined with alcohol, pain medications (especially opioids), or street drugs because this can lead to overdose and possible . If you are under the influence of benzodiazepines while operating a motor vehicle and are involved in a car accident you can be charged with driving while intoxicated. Benzodiazepine use increases unsteady gait thereby increasing the risk of falls, broken bones, and concussions. Benzodiazepine use is intended for short-term use, up to 3 weeks at most. Long-term use of benzos can lead to dependence, rebound anxiety/agitation, and withdrawal symptoms that include sleep disturbance, irritability, increased tension and anxiety, panic attacks, hand tremor, sweating, difficulty in concentration, dry retching, and nausea, some weight loss, palpitations, headache, muscular pain and stiffness, and a host of perceptual changes. 08/01/2024 Post traumatic stress disorder (PTSD) (ICD-10 - F43.10) 09/03/2024 Colon cancer screening (ICD-10 - Z12.11) 09/17/2024 Tardive dyskinesia (ICD-10 - G24.01) 09/26/2023 Medication monitoring encounter (ICD-10 - Z51.81) Discussed results- PDMP confirms client has been out of medication for around one week. 11/27/2023 Post traumatic stress disorder (PTSD) (ICD-10 - F43.10) 12/06/2023 Post traumatic stress disorder (PTSD) (ICD-10 - F43.10) Continue at this time as client reports she is doing well. Discussed long-term use and memory concerns in length. Client to discuss with neurology. [place] plan[place]. Discussed with client: Benzodiazepines are not recommended for long-term use due to potent and dangerous side effects that include increased drowsiness, memory impairment, increased irritability, mood changes, and worsening of PTSD symptoms. Benzodiazepines increase respiratory depression which can aggravate conditions such as sleep apnea and COPD leading to possible . They should also never be combined with alcohol, pain medications (especially opioids), or street drugs because this can lead to overdose and possible . If you are under the influence of benzodiazepines while operating a motor vehicle and are involved in a car accident you can be charged with driving while intoxicated. Benzodiazepine use increases unsteady gait thereby increasing the risk of falls, broken bones, and concussions. Benzodiazepine use is intended for short-term use, up to 3 weeks at most. Long-term use of benzos can lead to dependence, rebound anxiety/agitation, and withdrawal symptoms that include sleep disturbance, irritability, increased tension and anxiety, panic attacks, hand tremor, sweating, difficulty in concentration, dry retching, and nausea, some weight loss, palpitations, headache, muscular pain and stiffness, and a host of perceptual changes. 12/06/2023 Medication monitoring encounter (ICD-10 - Z51.81) Discussed results- PDMP confirms client has been out of medication for around one week. 09/26/2023 Nutritional counseling (ICD-10 - Z71.3) 09/03/2024 UTI symptoms (ICD-10 - R39.9) 08/08/2024 Medication monitoring encounter (ICD-10 - Z51.81) 07/08/2024 Medication monitoring encounter (ICD-10 - Z51.81) 07/01/2024 Post traumatic stress disorder (PTSD) (ICD-10 - F43.10) 05/20/2024 UTI (urinary tract infection) (ICD-10 - N39.0) 05/02/2024 Nicotine dependence, unspecified, uncomplicated (ICD-10 - F17.200) 04/25/2024 Medication monitoring encounter (ICD-10 - Z51.81) 04/08/2024 Screening for cervical cancer (ICD-10 - Z12.4) 03/18/2024 Medication monitoring encounter (ICD-10 - Z51.81) 02/09/2024 Seasonal allergic rhinitis, unspecified trigger (ICD-10 - J30.2) 02/09/2024 UTI (urinary tract infection) (ICD-10 - N39.0) 02/08/2024 Medication monitoring encounter (ICD-10 - Z51.81) 01/15/2024 Vaginal discharge (ICD-10 - N89.8) 01/15/2024 Screening for metabolic disorder (ICD-10 - Z13.228) 01/15/2024 Screening for thyroid disorder (ICD-10 - Z13.29) 01/15/2024 Screening for thyroid disorder (ICD-10 - Z13.29) 02/09/2024 Osteoarthritis (ICD-10 - M19.90) 03/18/2024 Nutritional counseling (ICD-10 - Z71.3) 04/25/2024 Tardive dyskinesia (ICD-10 - G24.01) Client reports improvement in abnormal movements with increase in dose to 12mg BID (24mg) but has increase in anxiety. Changing forms to XR for client to take at night to aid with SE profile. Client v/u. 04/25/2024 Nutritional counseling (ICD-10 - Z71.3) 08/08/2024 Nutritional counseling (ICD-10 - Z71.3) 07/08/2024 Nutritional counseling (ICD-10 - Z71.3) 09/03/2024 Sinusitis (ICD-10 - J32.9) 07/08/2024 Tardive dyskinesia (ICD-10 - G24.01) Continue, takes in the morning, reports internal restlessness, increase dose. 08/08/2024 Tardive dyskinesia (ICD-10 - G24.01) Continue, takes in the morning, reports internal restlessness, increase dose. 02/09/2024 Contact dermatitis (ICD-10 - L25.9) 01/15/2024 Screening for diabetes mellitus (ICD-10 - Z13.1) 01/15/2024 Screening for hyperlipidemia (ICD-10 - Z13.220) 01/15/2024 Screening for deficiency anemia (ICD-10 - Z13.0) 01/15/2024 Screening for metabolic disorder (ICD-10 - Z13.228) 01/15/2024 UTI symptoms (ICD-10 - R39.9) 01/15/2024 Exposure to potential infection (ICD-10 - Z20.9) 01/15/2024 Vaginal discharge (ICD-10 - N89.8) 01/15/2024 Screening for diabetes mellitus (ICD-10 - Z13.1) 01/15/2024 Screening for deficiency anemia (ICD-10 - Z13.0) 09/26/2023 Other Reasons, potential benefits, potential risks, interactions and side effects of all medications were discussed. The Patient/Guardian asked appropriate questions, appeared to understand the answers, and decided to accept the treatment and continue being followed. Alternatives and expected course without treatment were reviewed. The Patient/Guardian is aware of the need to contact the office or return for an earlier appointment if any problems or concerns arise. May also contact the 24-hour crisis hotline (R), refer to the closest emergency room or call 911 if new symptoms arise of existing symptoms worsen. The Patient/Guardian is aware that this would apply to symptoms like: suicidal ideation, homicidal ideation, high risk behaviors, manic symptoms, psychotic symptoms, physical symptoms, or any other symptoms that may be dangerous to self or others. Greater than 50% of time spent on coordination and counseling where psychopharmacology as well as psychotherapeutic interventions were discussed along with review of treatments in the past. Education provided concerning need for adequate hydration. Patient/Guardian verbalized understanding of education, treatment plan and follow up. 01/15/2024 Other Learning About the Safe Use of Antibiotics material was discussed. Pt was provided with education regarding safe use of antibioitics, impacts of overuse of antibiotics, why antibiotics were not prescribed in this situation, and when to call the office for continued symptoms. At home treatments discussed based on symptoms. 02/08/2024 Other Reasons, potential benefits, potential risks, interactions and side effects of all medications were discussed. The Patient/Guardian asked appropriate questions, appeared to understand the answers, and decided to accept the treatment and continue being followed. Alternatives and expected course without treatment were reviewed. The Patient/Guardian is aware of the need to contact the office or return for an earlier appointment if any problems or concerns arise. May also contact the 24-hour crisis hotline ([facility]), refer to the closest emergency room or call 911 if new symptoms arise of existing symptoms worsen. The Patient/Guardian is aware that this would apply to symptoms like: suicidal ideation, homicidal ideation, high risk behaviors, manic symptoms, psychotic symptoms, physical symptoms, or any other symptoms that may be dangerous to self or others. Greater than 50% of time spent on coordination and counseling where psychopharmacology as well as psychotherapeutic interventions were discussed along with review of treatments in the past. Education provided concerning need for adequate hydration. Patient/Guardian verbalized understanding of education, treatment plan and follow up. This session was completed telephonically with client/parental/guard nelson consent: Unable to determine movement status, assess appearance, affect, AIMS, or vital signs. 02/09/2024 Other Learning About the Safe Use of Antibiotics material was discussed. Pt was educated on use of antibiotic medication including dosing, side effects, adverse effects and anticipated response. Pt was also educated on importance of completing full course of treatment as ordered. Patient voiced understanding of all. 03/18/2024 Other Reasons, potential benefits, potential risks, interactions and side effects of all medications were discussed. The Patient/Guardian asked appropriate questions, appeared to understand the answers, and decided to accept the treatment and continue being followed. Alternatives and expected course without treatment were reviewed. The Patient/Guardian is aware of the need to contact the office or return for an earlier appointment if any problems or concerns arise. May also contact the 24-hour crisis hotline ([facility]), refer to the closest emergency room or call 911 if new symptoms arise of existing symptoms worsen. The Patient/Guardian is aware that this would apply to symptoms like: suicidal ideation, homicidal ideation, high risk behaviors, manic symptoms, psychotic symptoms, physical symptoms, or any other symptoms that may be dangerous to self or others. Greater than 50% of time spent on coordination and counseling where psychopharmacology as well as psychotherapeutic interventions were discussed along with review of treatments in the past. Education provided concerning need for adequate hydration. Patient/Guardian verbalized understanding of education, treatment plan and follow up. This session was completed telephonically with client/parental/guard nelson consent: Unable to determine movement status, assess appearance, affect, AIMS, or vital signs. [place] agreement to continue current regimen at this time and monitor internal restlessness. 04/25/2024 Other Reasons, potential benefits, potential risks, interactions and side effects of all medications were discussed. The Patient/Guardian asked appropriate questions, appeared to understand the answers, and decided to accept the treatment and continue being followed. Alternatives and expected course without treatment were reviewed. The Patient/Guardian is aware of the need to contact the office or return for an earlier appointment if any problems or concerns arise. May also contact the 24-hour crisis hotline ([facility]), refer to the closest emergency room or call 911 if new symptoms arise of existing symptoms worsen. The Patient/Guardian is aware that this would apply to symptoms like: suicidal ideation, homicidal ideation, high risk behaviors, manic symptoms, psychotic symptoms, physical symptoms, or any other symptoms that may be dangerous to self or others. Greater than 50% of time spent on coordination and counseling where psychopharmacology as well as psychotherapeutic interventions were discussed along with review of treatments in the past. Education provided concerning need for adequate hydration. Patient/Guardian verbalized understanding of education, treatment plan and follow up. This session was completed telephonically with client/parental/guard nelson consent: Unable to determine movement status, assess appearance, affect, AIMS, or vital signs. 07/08/2024 Other Reasons, potential benefits, potential risks, interactions and side effects of all medications were discussed. The Patient/Guardian asked appropriate questions, appeared to understand the answers, and decided to accept the treatment and continue being followed. Alternatives and expected course without treatment were reviewed. The Patient/Guardian is aware of the need to contact the office or return for an earlier appointment if any problems or concerns arise. May also contact the 24-hour crisis hotline ([facility]), refer to the closest emergency room or call 911 if new symptoms arise of existing symptoms worsen. The Patient/Guardian is aware that this would apply to symptoms like: suicidal ideation, homicidal ideation, high risk behaviors, manic symptoms, psychotic symptoms, physical symptoms, or any other symptoms that may be dangerous to self or others. Greater than 50% of time spent on coordination and counseling where psychopharmacology as well as psychotherapeutic interventions were discussed along with review of treatments in the past. Education provided concerning need for adequate hydration. Patient/Guardian verbalized understanding of education, treatment plan and follow up. This session was completed telephonically with client/parental/guard nelson consent: Unable to determine movement status, assess appearance, affect, AIMS, or vital signs. 08/08/2024 Other Reasons, potential benefits, potential risks, interactions and side effects of all medications were discussed. The Patient/Guardian asked appropriate questions, appeared to understand the answers, and decided to accept the treatment and continue being followed. Alternatives and expected course without treatment were reviewed. The Patient/Guardian is aware of the need to contact the office or return for an earlier appointment if any problems or concerns arise. May also contact the 24-hour crisis hotline ([facility]), refer to the closest emergency room or call 911 if new symptoms arise of existing symptoms worsen. The Patient/Guardian is aware that this would apply to symptoms like: suicidal ideation, homicidal ideation, high risk behaviors, manic symptoms, psychotic symptoms, physical symptoms, or any other symptoms that may be dangerous to self or others. Greater than 50% of time spent on coordination and counseling where psychopharmacology as well as psychotherapeutic interventions were discussed along with review of treatments in the past. Education provided concerning need for adequate hydration. Patient/Guardian verbalized understanding of education, treatment plan and follow up. This session was completed telephonically with client/parental/guard nelson consent: Unable to determine movement status, assess appearance, affect, AIMS, or vital signs. 09/03/2024 Other Learning About the Safe Use of Antibiotics material was discussed. Pt was educated on use of antibiotic medication including dosing, side effects, adverse effects and anticipated response. Pt was also educated on importance of completing full course of treatment as ordered. Patient voiced understanding of all. 05/07/2024 Other Learning About the Safe Use of Antibiotics material was published, Cephalexin Oral Capsule (CEPHALEXIN - ORAL) material was published to patient portal, Learning About the Safe Use of Antibiotics material was printed, Cephalexin Oral Capsule (CEPHALEXIN - ORAL) material was printed Plan Of Treatment Future Test Test Name Order Date Mammogram Breast - Bilateral Screening 0 10/03/2023 Occult Blood, Fecal, [place] ([id number]) 025 UA/M w/rflx Culture, Routine 09/03/2024 Next Appt Details Provider Name:Miracle quevedo, 10/01/2024 03:40:00 PM, [address], [place], [address], Insurance Providers Payer Name Payer Address Payer Phone Subscriber Number Group Number Insured Name Patient Relationship to Insured Coverage Start Date Coverage End Date [facility] Attn Claims Department [address] [place] [phone] [id number] Thom Ponce Self - patient is the insured 1 [facility] Attn Claims Department [address] [place] [phone] [id number] Thom Ponce Self - patient is the insured 1 Medical (General) History Medical History History ICD Code Post depression F53.0 Depression F32.9 Epilepsy G40.909 Post traumatic stress disorder (PTSD) F4 3.10 Lupus Surgical History Surgery Date(Month/Year) Hernia 1974 1997 C-secction 2016 laparoscopic 2019 Elbow/hand surgery 12/2022 Hospitalization History Reason Date(Month/Year)
--- OUTSIDE RECORDS SUMMARY | 2024-09-25 18:45 | XMS_ITS ---
Author Organization On license of [facility] Address [address] [place] [address] Care Team Providers Care Knitted Cloth Examiner Name Role Phone Iris Guzmán Primary Care Provider Miracle Leigh Unavailable [phone] REASON FOR VISIT check-up Social History Sex Assigned At : Social History Observation Description Sex Assigned At Female Encounters Encounter Location Date Provider Diagnosis [facility] [address] [place] [address] 09/03/2024 Iris Guzmán Plan Of Treatment Next Appt Details Provider Name:Miracle quevedo, 10/01/2024 03:40:00 PM, [address], [place], [address], Progress Notes * Ceci PACKEROB:[birth year] (48 yo F)Acc No.[id number]:09/03/2024 UNLOCKED PROGRESS NOTE Progress Notes Patient: Lelo Thom DIAZ Provider: Alice Guzmán, MSN, QUALITY SYSTEMS MANAGER, PROJECT PRODUCTION ENGINEER-BC, PROJECT PRODUCTION ENGINEER-C :1975 A ge:48 Y S ex:Female Date:09/03/2024 Address:[address], [place], [place] Subjective: * Chief Complaints: * 1 . Check-up. * Medical History: Objective: * Vitals: Assessment: Plan: * Treatment: * * Electronic signature of Deshawn Guzmán , PARKER, [id number] on 09/25/2024 at 06:44 PM CDT Sign off status: Pending * Provider: Alice Guzmán, MSN, QUALITY SYSTEMS MANAGER, PROJECT PRODUCTION ENGINEER-BC, PROJECT PRODUCTION ENGINEER-C Date: 0 09/03/2024 Generated for Printing/Faxing/eTransmitting on: 0 09/25/2024 06:44 PM CDT
--- OUTSIDE RECORDS SUMMARY | 2024-09-25 18:45 | XMS_ITS | CONTINUITY OF CARE DOCUMENT ---
Author Name franciscodamarisselina Address Unknown Organization [facility] Address [address] [place] [address] Phone [phone] Care Team Providers Care Wood Gouger Name Role Phone Uvaldo PEREZ, Jeronimo Unavailable ELTON PEREZ, ALBER Unavailable INSURANCE PROVIDERS Payer name Policy type / Coverage type [employer] Medicaid 1 [id number]
[2024-09-25 19:04] VITALS: BP 113/69; PULSE 77; RESP 15; TEMP 37; O2SAT 100
--- NOTE | 2024-09-25 19:43 | ED_ITS ---
HPI - Female Genitourinary General Chief complaint: Urogenital-Female Stated complaint: RECURRENT UTI SYMPTOMS Time Seen by Provider: 09/25/24 19:28 Source: patient Mode of arrival: ambulatory Limitations: no limitations History of Present Illness HPI Narrative: 48 YEARS OLD WHITE FEMALE CAME TO THE ED WITH URINARY FREQUENCY, URGENCY, SMELLY, BURNING AND ITCHING FOR OVER 1 YEAR, BEEN ON DIFFERENT KIND OF ANTIBIOT IC WITHOUT RECOVERY. PATIENT WAS TOLD TO GO FOLLOW-UP WITH UROLOGIST, LAST UROLOGY EXAM WAS 2 MONTHS AGO, HISTORY OF OVERACTIVE BLADDER AND PSYCH DISORDER. Related Data Home Medications ?Medication ?Instructions ?Recorded ?Confirmed ?Last Taken ?Type multivitamin 1 tablet PO DAILY 03/02/21 06/15/23 Unknown History fluticasone propionate 50 1 spray intranasal DAILY 01/11/22 06/15/23 05/10/22 History mcg/actuation nasal spray,suspension (Flonase Allergy Relief) olanzapine 10 mg tablet 10 mg PO DAILY 01/11/22 06/15/23 Unknown History deutetrabenazine 9 mg tablet 9 mg PO DAILY 05/10/22 06/15/23 05/09/22 History ([place]) Allergies Allergy/AdvReac Type Severity Reaction Status Date / Time hydroxychloroquine Allergy Mild Agitated Verified 09/25/24 18:42 peanut Allergy Anaphylaxis Verified 09/25/24 18:42 Sulfa (Sulfonamide AdvReac Muscle Pain Verified 09/25/24 18:42 Antibiotics) Review of Systems Review of Systems: All systems reviewed & are unremarkable except as noted in HPI and below PMFSH Past Medical History Medical History Vitamin D deficiency Inflammatory arthropathy ESTHER positive Anxiety Asthma Claustrophobia Seizures Depression Surgical History Surgical History History of tubal ligation History of History of hernia repair Family History Family History Mother Family history of mental disorder Father Family history of diabetes mellitus in first degree relative Family history of coronary artery disease Other Arthritis Asthma Cancer Depression Diabetes mellitus Heart disease High cholesterol Hypertension Social History Social History Smoking status: Former smoker Tobacco type: cigarettes Smoking end date: 05/09/20 Additional smoking assessment comments: cigarettes 1/2 ppd x 5 1/2 years Alcohol intake: former Substance use type: marijuana Other substance usage details: smoking and eatables daily Living arrangements: with roommate(s) Gender identity (if verbalized by the patient): Female Spiritual care concerns: No Exam Narrative: GENERAL APPEARANCE: WELL-DEVELOPED, WELL-NOURISHED SKIN: NORMAL COLOR HEAD: NORMOCEPHALIC, NONTRAUMATIC EYES: CLEAR CONJUNCTIVA ENT: OROPHARYNX NORMAL, EARS NORMAL, NOSE NORMAL NECK: SUPPLE, NONTENDER CHEST AND RESPIRATORY: AIRWAY PATENT, NO RESPIRATORY DISTRESS, NO ACCESSORY MUSCLE USE HEART: REGULAR RATE/RHYTHM ABDOMEN: SOFT, NONTENDER, NO ORGANOMEGALY, QUIET BOWEL SOUNDS MUSCULOSKELETAL: NORMAL RANGE OF MOTION, NONTENDER BACK NEUROLOGIC: ALERT AND ORIENTED ?3, RELISH MAKER IS NORMAL TESTED, NO GROSS MOTOR DEFICIT Course Vital Signs Vital signs: Vital Signs Temperature 37.0 C 09/25/24 19:04 Pulse Rate 77 09/25/24 19:04 Respiratory Rate 15 09/25/24 19:04 Blood Pressure 113/69 09/25/24 19:04 Pulse Oximetry 100 09/25/24 19:04 Temperature 37.0 C 09/25/24 19:04 Pulse Rate 77 09/25/24 19:04 Respiratory Rate 15 09/25/24 19:04 Blood Pressure 113/69 09/25/24 19:04 Pulse Oximetry 100 09/25/24 19:04 MDM - Female Genitourinary MDM Narrative Medical decision making narrative: PATIENT CAME WITH URINE FREQUENCY AND URGENCY, ITCHING. POSSIBLE YEAST INFECTION VITAL SIGNS ARE STABLE PHYSICAL EXAMINATION IS UNREMARKABLE, PATIENT DECLINED PELVIC EXAM DIFFERENTIAL DIAGNOSIS URINARY TRACT INFECTION, VAGINAL YEAST INFECTION, URETHRITIS URINALYSIS CAME BACK POSITIVE FOR INFECTION DISCHARGED ON MACROBID AND FLUCONAZOLE AND PYRIDIUM DIAGNOSIS URINARY TRACT INFECTION, VAGINAL YEAST INFECTION Differential Diagnosis Differential diagnosis: Likely urinary tract infection, vaginitis and cystitis Lab Data Attestation: I reviewed the patient's lab results. Labs: Lab Results 09/25/24 09/25/24 Range/Units 20:04 20:05 Urine Color Dark yellow (Yellow) Urine Appearance Cloudy H (Clear) Urine pH 6.5 (5.0-9.0) Ur Specific [place] 1.031 (1.001-1.035) Urine Protein Trace (Negative) mg/dL Urine Glucose (UA) Negative (Negative) mg/dL Urine Ketones Trace H (Negative) mg/dL Ur Blood (Man) Negative (Negative) Urine Nitrate Positive H (Negative) Urine Bilirubin Negative (Negative) Urine Urobilinogen 1.0 (<2.0) mg/dL Add Ur Microanalysis Reviewed Leukocyte Esterase Rfl 1+ H (Negative) OC/UL Urine RBC 6-10 H (0-2) /hpf Urine WBC 11-20 H (0-3) /hpf Ur Squamous Epith Cells Few (Few) /hpf Urine Bacteria 4+ /hpf Urine Casts 0-2 POC Urine HCG, Qual Negative (Negative) Critical Care Time Critical Care Time Critical Care Time: No Discharge Plan Discharge Clinical Impression: Urinary tract infection, Vaginal yeast infection Patient Disposition: Home Condition: Stable Instructions: Antibiotic Form, Urinary Tract Infection in Women (ED) Additional Instructions: RETURN IF SYMPTOMS ARE WORSENING , CALL YOUR FAMILY PHYSICIAN FOR APPOINTMENT, TAKE TYLENOL NEEDED FOR ACHES AND PAIN, CONTINUE HOME MEDICATIONS. FLUCONAZOLE 150 MG TODAY AND THE 2ND 1 AFTER 48 HOURS Patient Language: Syriac Prescriptions: New nitrofurantoin monohyd/m-cryst [Macrobid] 100 mg capsule 100 mg PO Q12H 7 Days Qty: 14 0RF Rx Instructions: must administer with a meal/food phenazopyridine [Pyridium] 200 mg tablet 200 mg PO TID PRN (Reason: pain) Qty: 6 0RF fluconazole 150 mg tablet 150 mg PO ONCE Qty: 2 0RF Rx Instructions: as a single dose No Action olanzapine 10 mg tablet 10 mg PO DAILY Patient Comments: per patient med list fluticasone propionate [Flonase Allergy Relief] 50 mcg/actuation spray,suspension 1 spray intranasal DAILY Rx Instructions: administer into each nostril methotrexate sodium 2.5 mg tablet 12.5 mg PO WEEKLY Qty: 25 1RF folic acid 1 mg tablet 1 mg PO DAILY Qty: 90 1RF albuterol sulfate 90 mcg/actuation HFA aerosol inhaler 2 puff INHALATION QID PRN (Reason: shortness of breath or wheezing) Qty: 6.7 0RF multivitamin Tablet 1 tablet PO DAILY [place] 9 mg Tablet 9 mg PO DAILY hydrocodone-acetaminophen 7.5-325 mg tablet 1 tablet PO Q6H PRN (Reason: pain) Qty: 8 0RF amoxicillin-pot clavulanate 875-125 mg tablet 1 tablet PO Q12H Qty: 14 0RF cephalexin 500 mg capsule 500 mg PO Q8H Qty: 15 0RF levofloxacin 250 mg tablet 250 mg PO DAILY Qty: 3 0RF phenazopyridine [Pyridium] 100 mg tablet 100 mg PO TID PRN (Reason: urinary pain) Qty: 10 0RF amoxicillin-pot clavulanate 875-125 mg tablet 1 tablet PO Q12H Qty: 14 0RF carbamazepine 200 mg tablet 200 mg PO .COMPLEX Qty: 180 0RF Rx Instructions: 200 mg PO 3 tabs by mouth every 12hrs; clonazepam 1 mg tablet 1 mg PO BID Qty: 30 0RF Follow-up/Referrals: Arilele,PARKER Simmons [Primary Care Provider] -
[2024-09-25 20:06] LABS: BEDSIDEPREGUCG Negative (Negative)
[2024-09-25 20:27] LABS: Add Urine Microscopic? YES; Appearance Urine Cloudy (Clear); Bacteria Urine 4+ /hpf; Bilirubin Urine Negative (Negative); Blood Urine Negative (Negative); Color Urine Dark Yellow (Yellow); Glucose Urine UA Negative (Negative); Ketones Urine Trace mg/dL (Negative); Leukocyte Esterase Ur 1+ LEU/UL (Negative); Need Manual Microscopic Reviewed; Nitrate Urine Positive (Negative); Non Pathogenic Casts 0-2; Protein Urine Trace mg/dL (Negative); Specific Grav Ur 1.031 (1.001-1.035); Squamous Epithelial Cell Urine Few /hpf (Few); pH Urine 6.5 (5.0-9.0)
--- OUTSIDE RECORDS SUMMARY | 2024-09-25 20:39 | XMS_ITS | Referral Summary ---
Author Organization [facility] al Address [address] [place] [address] Care Team Providers Care Currency Examiner Name Role Phone Unknown, Notinfile Primary Care [...] on file Legal Sex Female 3:40 PM PALLIATIVE CARE PHYSICIAN Gender Identity Not on file Sexual Orientation Not on file Last Filed Vital Signs Vital Sign Reading Time Taken Comments Blood Pressure 120/60 02/29/2024 2:57 PM CDT Pulse 85 02/29/2024 2:57 PM CDT Temperature 36.6 C (97.8 F) 07/08/2022 11:38 AM PALLIATIVE CARE PHYSICIAN Respiratory Rate 20 02/29/2024 2:57 PM CDT [...] HEPATITIS C AB Routine 07/05/2016 4:53 AM PALLIATIVE CARE PHYSICIAN from Last 3 Months or Most Recently Relevant to Health Maintenance Results * Serum Hepatitis C ab (07/05/2016 4:53 AM PALLIATIVE CARE PHYSICIAN) HCV ab Nonreactive CDR HIST ORICAL RESULTS Serum 07/05/2016 4:53 AM PALLIATIVE CARE PHYSICIAN Narrative CDR HISTORICAL RESULTS - 07/06/2016 4:20 AM PALLIATIVE CARE PHYSICIAN Interpretive Data Positive results should be confirmed by a molecular method. If positive, a second separately collected sample should be submitted for Hepatitis C Virus (HCV) RNA Detection and Quantitation by Real-Time Reverse Manager Investment-PCR (RT-PCR). Current interpretive data was last revised on 2016. Moisés Mendieta MD LAB BLOOD ORDERABLES Fi nal Result CDR HISTORICAL RESULTS from Last 3 Months or Most Recently Relevant to Health Maintenance Insurance [facility] Care Teams Currency Examiner Relationship Specialty Start Date End Date Unknown, Notinfile PCP - General 04/23/24
--- OUTSIDE RECORDS SUMMARY | 2024-09-25 20:39 | XMS_ITS | CONTINUITY OF CARE DOCUMENT ---
Author Name franciscodamarisselina Address Unknown Organization [facility] Address [address] [place] [address] Phone [phone] Care Team Providers Care Hospice Nurse Practitioner Name Role Phone Uvaldo PEREZ, Jeronimo Unavailable [phone] ELTON PEREZ, ALBER Unavailable [phone] INSURANCE PROVIDERS Payer name Policy type / Coverage type Shena red green party ID [facility] Medicaid 1 [id number]
--- OUTSIDE RECORDS SUMMARY | 2024-09-25 20:39 | XMS_ITS | Clinical Summary ---
Author Organization [facility] Address [address] [place] [address] Care Team Providers Care Translator Deaf Name Role Phone Unknown, Notinfile Primary Care [...] 03/18/2008 Surgical History Surgery Date Site/Laterality Comments [place] DELIVERY ONLY Section - (Added by TW [...] on file Legal Sex Female 3:40 PM RESIDENTIAL CARE OFFICER Gender Identity Not on file Sexual Orientation Not on file Obstetrics History Last Filed Vital Signs Vital Sign Reading Time Taken Comments Blood Pressure 120/60 02/29/2024 2:57 PM CDT Pulse 85 02/29/2024 2:57 PM CDT Temperature 36.6 C (97.8 F) 07/08/2022 11:38 AM RESIDENTIAL CARE OFFICER Respiratory Rate 20 02/29/2024 2:57 PM CDT [...] HEPATITIS C AB Routine 07/05/2016 4:53 AM RESIDENTIAL CARE OFFICER from Last 3 Months or Most Recently Relevant to Health Maintenance Results * Serum Hepatitis C ab (07/05/2016 4:53 AM RESIDENTIAL CARE OFFICER) HCV ab Nonreactive CDR HIST ORICAL RESULTS Serum 07/05/2016 4:53 AM RESIDENTIAL CARE OFFICER Narrative CDR HISTORICAL RESULTS - 07/06/2016 4:20 AM RESIDENTIAL CARE OFFICER Interpretive Data Positive results should be confirmed by a molecular method. If positive, a second separately collected sample should be submitted for Hepatitis C Virus (HCV) RNA Detection and Quantitation by Real-Time Reverse Termite Renewal Inspector-PCR (RT-PCR). Current interpretive data was last revised on 2016. Moisés Mendieta MD LAB BLOOD ORDERABLES Fi nal Result CDR HISTORICAL RESULTS from Last 3 Months or Most Recently Relevant to Health Maintenance Insurance [facility] Care Teams Translator Deaf Relationship Specialty Start Date End Date Unknown, Notinfile PCP - General 04/23/24
== END 2024-09-25 21:05 | disposition home or self-care (01) ==
PROVIDERS: Emergency Provider Emergency Medicine; PCP Nurse Practitioner Family
DX: N39.0 Urinary tract infection, site not specified (principal); B37.31 Acute candidiasis of vulva and vagina; J45.909 Unspecified asthma, uncomplicated; E55.9 Vitamin D deficiency, unspecified; F41.9 Anxiety disorder, unspecified; F32.A Depression, unspecified; Z87.891 Personal history of nicotine dependence; Z79.899 Other long term (current) drug therapy
CPT/HCPCS: 81001; 81025; 87086; 87186; 99283

== ENCOUNTER 2024-10-22 20:04 | Observation (INO) | payer OTHER, SELFPAY ==
--- NOTE | ~2024-10-22 | US_ITS ---
EXAM: RENAL ULTRASOUND HISTORY: flank pain, frequent UTIs COMPARISON: 02/23/2023 FINDINGS: RIGHT KIDNEY: 13.1 x 4.5 x 4.5 cm. The parenchyma of the right kidney is unremarkable in echogenicity. No hydronephrosis or renal calculi. LEFT KIDNEY: 11.7 x 4.5 x 4.6 cm No hydronephrosis or renal calculi. The parenchyma of the left kidney is unremarkable in echogenicity. BLADDER: Decompressed, limiting its evaluation. IMPRESSION: Unremarkable sonographic evaluation of the bilateral kidneys, as detailed above. Reviewed, dictated and finalized at location A. IMPRESSION: Unremarkable sonographic evaluation of the bilateral kidneys, as detailed above .
--- OUTSIDE RECORDS SUMMARY | 2024-10-22 20:06 | XMS_ITS ---
Author Organization formerly [facility] Address [address] [place] [address] Care Team Providers Care Computer Support Analyst Name Role Phone Iris Guzmán Primary Care Provider Miracle Leigh Unavailable [phone] REASON FOR VISIT 4 week F/U. r/s from 09/17 Social History Sex Assigned At : Social History Observation Description Sex Assigned At Female Encounters Encounter Location Date Provider Diagnosis [place] [address] [place] [address] 10/01/2024 Miracle Leigh Plan Of Treatment No Information Progress Notes * Ryan PACKERinDOB:[birth year] (48 yo F)Acc No.[id number]:10/01/2024 UNLOCKED PROGRESS NOTE Patient: Lelo Thom DIAZ Provider: Brit Leigh, MSN, REHEATER HELPER, APPLICATION SUPPORT LEAD-C :1975 A ge:48 Y S ex:Female Date:10/01/2024 Address:[address], [place], [place]-[address] Pcp:Iris Guzmán Subjective: * Chief Complaints: * 1 . 4 week F/U. r/s from 09/17. * Medical History: Objective: * Vitals: Assessment: Plan: * Treatment: * * Electronic signature of Dara Leigh , [id number] on 10/22/2024 at 08:06 PM CDT Sign off status: Pending * Provider: Brit Leigh, LYSSA, REHEATER HELPER, APPLICATION SUPPORT LEAD-C Date: 0 10/01/2024 Generated for Renee crain/Dennis/Raiza on: 0 10/22/2024 08:06 PM CDT
--- OUTSIDE RECORDS SUMMARY | 2024-10-22 20:06 | XMS_ITS | Clinical Summary ---
Author Organization [facility] al Address [address] [place] [address] Care Team Providers Care Shingle Packer Name Role Phone Unknown, Notinfile Primary Care Provider Unavail able Allergies Active Allergy Reactions Criticality Noted Date Comments Naproxen Other (See comments) Low 12/03/2019 Counter acts tegretol Cat Dander Unknown 03/10/2023 Peanut Diarrhea Low 03/10/2023 Medications acetaminophen (TYLENOL) 500 mg tablet Take 1-2 tablets (500-1,000 mg total) by mouth every 6 (six) hours as needed for pain. 30 tablet 12/30/19 18 Active beclomethasone (Qvar) 40 mcg/actuation inhaler 2 times daily 01/12/20 16 Active carisoprodoL (SOMA) 350 mg tablet TK 1 T PO BID FOR 7 DAYS 09/10/19 20 Active clonazePAM (KlonoPIN) 1 mg tablet Take 1 mg by mouth 2 (two) times a day 11/20/19 20 Active montelukast (SINGULAIR) 10 mg tablet 11/07/19 20 Active ondansetron ODT (ZOFRAN-ODT) 4 mg disintegrating tablet 10/12/19 20 Active QUEtiapine (SEROquel) 300 mg tablet 11/04/19 20 Active OLANZapine (ZyPREXA) 10 mg tablet 01/19/20 22 Active amoxicillin 500 mg tablet/capsule amoxicillin 500 mg tablet Active amoxicillin-clavul anate (AUGMENTIN) 500-125 mg per tablet TAKE 1 TABLET BY MOUTH EVERY 8 HOURS FOR 7 DAYS 01/13/20 23 Active amoxicillin-clavul anate (AUGMENTIN) 875-125 mg per tablet amoxicillin 875 mg-potassium clavulanate 125 mg tablet TAKE 1 TABLET BY MOUTH EVERY 12 HOURS FOR 10 DAYS Active azithromycin (ZITHROMAX) 250 mg tablet azithromycin 250 mg tablet Active budesonide-formote roL (SYMBICORT) 160-4.5 mcg/actuation inhaler Symbicort 160 mcg-4.5 mcg/actuation HFA aerosol inhaler INHALE 2 PUFFS BY MOUTH TWICE DAILY. Active chlorhexidine (PERIDEX) 0.12 % solution RINSE AND GARGLE 15 ML BY MOUTH TWICE DAILY 01/31/20 23 Active clindamycin (CLEOCIN) 300 mg capsule clindamycin HCl 300 mg capsule TAKE 1 CAPSULE BY MOUTH EVERY 8 HOURS FOR 7 DAYS Active deutetrabenazine (Austedo) 9 mg tablet daily Active doxycycline 100 mg capsule doxycycline hyclate 100 mg tablet TAKE 1 TABLET BY MOUTH TWICE DAILY FOR 10 DAYS Active EPINEPHrine 0.3 mg/0.3 mL auto-injection syringe as needed 03/08/20 23 Active estradioL (ESTRACE) 1 mg tablet Active famotidine (PEPCID) 20 mg tablet 03/09/20 23 Active fluconazole (DIFLUCAN) 150 mg tablet Active Advair Diskus 250-50 mcg/dose diskus inhaler USE 1 INHALATION BY MOUTH TWICE DAILY Active fluticasone propion-salmeteroL (ADVAIR DISKUS) 500-50 mcg/dose diskus inhaler Activ e HYDROcodone-acetam inophen (NORCO) 7.5-325 mg per tablet Take by mouth every 6 (six) hours as needed 12/15/19 23 Active hydroxychloroquine (PLAQUENIL) 200 mg tablet Take 2 tablets (400 mg total) by mouth daily 02/10/20 23 Active ipratropium-albute roL (DUO-NEB) 0.5-2.5 mg/3 mL nebulizer solution A ctive loratadine (CLARITIN) 10 mg tablet Active losartan (COZAAR) 50 mg tablet Active medroxyPROGESTERon e (PROVERA) 2.5 mg tablet Active meloxicam (MOBIC) 7.5 mg tablet Take 1 tablet (7.5 mg total) by mouth daily as needed 01/31/20 23 Active methylPREDNISolone (MEDROL) 4 mg tablet Take 1 tablet (4 mg total) by mouth daily 08/26/19 21 Active metroNIDAZOLE (METROGEL) 0.75 % (37.5mg/5 gram) vaginal gel Active naproxen (NAPROSYN) 500 mg tablet Active predniSONE (DELTASONE) 5 mg tablet Active progesterone (PROMETRIUM) 100 mg capsule Active rOPINIRole (REQUIP) 0.25 mg tablet Active traMADoL (ULTRAM) 50 mg tablet Active clonazePAM (KlonoPIN) 0.5 mg tablet TAKE ONE TPO EVERY NIGHT AT BEDTIME NEEDED FOR SLEEP-ONSET ANXIETY AND INSOMNIA 02/28/20 23 Active OLANZapine (ZyPREXA) 10 mg tablet Active OLANZapine (ZyPREXA) 20 mg tablet Active silver sulfadiazine (SILVADENE, SSD) 1 % cream 1 g daily 02/29/20 22 Active phenazopyridine (PYRIDIUM) 100 mg tablet every 8 hours 01/15/20 24 Active oxyBUTYnin XL (DITROPAN-XL) 10 mg 24 hr tablet TAKE 1 TABLET BY MOUTH EVERY DAY IN THE MORNING FOR URINARY INCONTINENCE 02/14/20 24 Active omeprazole (PriLOSEC) 40 mg capsule TAKE 1 CAPSULE BY MOUTH EVERY DAY FOR ABDOMINAL PAIN 02/10/20 24 Active guaiFENesin (ROBITUSSIN) 200 mg tablet every 4 hours Active fluticasone propionate (FLONASE) 50 mcg/actuation nasal spray ADMINISTER 1 SPRAY INTO EACH NOSTRIL ONCE DAILY. 02/09/20 24 Active diclofenac sodium 3 % gel every 12 hours Activ e carBAMazepine (TEGretol) 200 mg tablet Take 3 tablets (600 mg total) by mouth 2 (two) times a day 180 tablet 11 02/29/20 24 025 Active gabapentin (NEURONTIN) 300 mg capsule TAKE 1 CAPSULE(300 MG) BY MOUTH EVERY NIGHT 30 capsule 1 09/03/19 25 Active Active Problems Problem Noted Date Diagnosed Date Seizure disorder 09/06/2016 Bronchial asthma 09/06/2016 Intrauterine contraceptive device threads lost 0 09/06/2016 Anaclitic depression 09/06/2016 Anxiety 09/06/2016 Bipolar I disorder, most recent episode depresse d 03/22/2016 Benign essential hypertension 05/09/2006 Immunizations Immunization Administration Dates Next Due Influenza, Trivalent, Preservative Free, Intramu scular 03/18/2008 Surgical History Surgery Date Site/Laterality Comments [place] DELIVERY ONLY Section - (Added by TW [...] on file Legal Sex Female 3:40 PM EXPLORATION MANAGER Gender Identity Not on file Sexual Orientation Not on file Obstetrics History Last Filed Vital Signs Vital Sign Reading Time Taken Comments Blood Pressure 120/60 02/29/2024 2:57 PM CDT Pulse 85 02/29/2024 2:57 PM CDT Temperature 36.6 C (97.8 F) 07/08/2022 11:38 AM EXPLORATION MANAGER Respiratory Rate 20 02/29/2024 2:57 PM CDT Oxygen Saturation 97% 02/29/2024 2:57 PM CDT Inhaled Oxygen Concentration - - Weight 68 kg (150 lb) 02/29/2024 2:57 PM CDT Height 154.9 cm (5' 1) 02/29/2024 2:57 PM CDT Body Mass Index [...] HEPATITIS C AB Routine 07/05/2016 4:53 AM EXPLORATION MANAGER from Last 3 Months or Most Recently Relevant to Health Maintenance Results * Serum Hepatitis C ab (07/05/2016 4:53 AM EXPLORATION MANAGER) HCV ab Nonreactive CDR HIST ORICAL RESULTS Serum 07/05/2016 4:53 AM EXPLORATION MANAGER Narrative CDR HISTORICAL RESULTS - 07/06/2016 4:20 AM EXPLORATION MANAGER Interpretive Data Positive results should be confirmed by a molecular method. If positive, a second separately collected sample should be submitted for Hepatitis C Virus (HCV) RNA Detection and Quantitation by Real-Time Reverse Engineering And Scientific Programmer-PCR (RT-PCR). Current interpretive data was last revised on 2016. Moisés Mendieta MD LAB BLOOD ORDERABLES Fi nal Result CDR HISTORICAL RESULTS from Last 3 Months or Most Recently Relevant to Health Maintenance Insurance [facility] Care Teams Shingle Packer Relationship Specialty Start Date End Date Unknown, Notinfile PCP - General 04/23/24
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
--- OUTSIDE RECORDS SUMMARY | 2024-10-22 20:06 | XMS_ITS ---
Author Organization [facility] Address [address] [place] [address] Care Team Providers Care Wax Bleacher Name Role Phone Iris Guzmán Primary Care Provider [phone] Miracle Leigh Unavailable [phone] Allergies Allergen (clinical drug ingredient) Drug/Non Drug Allergy documented on EMR Reaction Allergy Type Onset Date Status sulfamethoxazole / trimethoprim Bactrim DS rash Drug Allergy Active Septra Unknown Drug Allergy Active REASON FOR VISIT r/s from 10/01 4 week FU Medications Medication SIG (Take, Route, Frequency, Duration) Notes Start Date End Date Status Wixela Inhub 250-50 MCG/DOSE 1 puff Inhalation Twice a day for 30 days 02/24/2021 Not-Taking Fluconazole 200 MG 1 tablet Orally once 02/10/2023 Not-Taking Amoxicillin-Pot Clavulanate 500-125 MG 1 tablet Orally every 12 hrs for 7 day(s) 01/22/2024 Not-Taking Famotidine 40 MG TAKE 1 TABLET BY SANTOSH AT BEDTIME for 30 Not-Taking Silver sulfADIAZINE 1 % 1 application Externally Once a day for 10 days 02/28/2022 Not-Taking clonazePAM 0.5 MG 1 tablet Orally nightly prn sleep-onset anxiety and insomnia for 14 days 10/07/2024 Active OLANZapine 15 MG 1 tablet Orally Once a day for 6 days Active Cephalexin 500 MG 1 capsule Orally moise ry 6 hrs for 5 days 02/09/2024 Not-Taking Acetaminophen 500 MG two tablets as need ed for painb Orally every 8 hours Not-Taking Amoxicillin-Pot Clavulanate 875-125 MG 1 tablet Orally twice a day for 7 days 09/03/2024 Active Phenazopyridine HCl 100 MG 2 tablets aft er meals Orally Three times a day for 1 days 01/15/2024 Active Austedo XR 24 MG TAKE 1 TABLET BY SANTOSH TH DAILY for 7 days Active carBAMazepine 200 MG 3 tablets Orally Tw ice a day for 30 days Active clonazePAM 0.5 MG 1 tablet Orally nightly prn sleep-onset anxiety and insomnia for 30 days 10/21/2024 Active Austedo XR 30 MG 1 tablet Orally Once a day for 30 days Active Flonase 50 MCG/DOSE 1 spray in each nostril Nasally Once a day for 30 days 03/18/2021 Active Diclofenac Sodium 3 % 1 application to t op of left foot as needed for pain Externally Twice a day Active guaiFENesin 200 MG 1 tablet as needed Orally every 4 hrs for 7 days Active Omeprazole 10 MG 1 capsule 30 minutes before morning meal Orally Once a day for 30 day(s) Active OLANZapine 15 MG 1 tablet Orally Once a day for 30 days Active Triamcinolone Acetonide 0.1 % 1 application Externally Two times a Week for 30 days Active Multivitamin Adult - 1 tablet Orally Onc e a day for 30 day(s) Active Albuterol Sulfate HFA 108 (90 Base) MCG/ACT 1 puff as needed Inhalation every 4 hrs Active Social History Sex Assigned At : Social History Observation Description Sex Assigned At Female Vital Signs Weight 180.8 lbs lbs 10/21/2024 Height 61 in in 10/21/2024 BMI 34.16 kg/m2 10/21/2024 Blood pressure systolic 110 mm Hg 10/22/19 25 Blood pressure diastolic 76 mm Hg 025 Heart Rate 75 /min 10/21/2024 Oximetry 97 % 10/21/2024 Temperature 98.2 degrees Fahrenheit 10/22/19 25 Respiratory Rate 16 /min 10/21/2024 Encounters Encounter Location Date Provider Diagnosis [address] [place] [address] 10/21/2024 Miracle Leigh Major depression F32.9 ; Post traumatic stress disorder (PTSD) F43.10 ; Medication monitoring encounter Z51.81 ; Nutritional counseling Z71.3 and Tardive dyskinesia G24.01 Assessments Encounter Date Diagnosis (ICD Code) Assessment Notes Treatment Notes Treatment Clinical Notes Section Notes 10/21/2024 Major depression (ICD-10 - F32.9) carbamazepine filled by neurology Sees neuro every 3-9 months. Sees her next month. 10/21/2024 Post traumatic stress disorder (PTSD) (ICD-10 - [...] stiffness, and a host of perceptual changes. 10/21/2024 Medication monitoring encounter (ICD-10 - Z51.81) 10/21/2024 Nutritional counseling (ICD-10 - Z71.3) 10/21/2024 Tardive dyskinesia (ICD-10 - G24.01) Continue, takes in the morning, reports internal restlessness, increase dose. 10/21/2024 Other Reasons, potential benefits, potential risks, interactions [...] of education, treatment plan and follow up. Plan Of Treatment Medication Medication Name Sig Start Date Stop Date Notes carBAMazepine 200 MG 3 tablets Orally Tw ice a day for 30 days clonazePAM 0.5 MG 1 tablet Orally nigh tly prn sleep-onset anxiety and insomnia for 30 days 10/21/2024 Austedo XR 30 MG 1 tablet Orally Once a day for 30 days OLANZapine 15 MG 1 tablet Orally Once a day for 30 days Treatment Notes Assessment Notes Major depression carbamazepine filled by neurology Sees neuro every 3-9 months. Sees her next month. Post traumatic stress disorder (PTSD) PDMP checked without concerns. May fill. Discussed [...] stiffness, and a host of perceptual changes. Tardive dyskinesia Continue, takes in t he morning, reports internal restlessness, increase dose. Other Reasons, potential benefits, potential risks, interactions [...] of education, treatment plan and follow up. Next Appt Details Follow Up: 4 Weeks, Reason: Psych F/U in-office Progress Notes * OCHOARyanBaltazarOB:[birth year] (48 yo F)Acc No.[id number]:10/21/2024 Patient: Thom ULRICH Provider: Brit Leigh, MSN, RN PRACTITIONER, [employer] MANAGER-C :1975 A ge:48 Y S ex:Female Date:10/21/2024 Address:[place] [address], [facility] Pcp:Iris Guzmán Subjective: * Chief Complaints: * r /s from 10/01 4 week FU * HPI: G AD-7 Screenin. Feeling nervous, anxious, or on edge : , More than half the days-2. 2 . Not being able to stop or control worrying : , Not at all-0. 3 . Worrying too much about different things : , Not at all-0. 4 . Trouble sleeping/relaxing : , Not at all-0. 5 . Being so restless that it is hard to sit still : , Not at all-0. 6 . Becoming easily annoyed or irritable : , Not at all-0. 7 . Feeling afraid, as if something awful might happen : , Not at all-0. G AD-7 Score T otal score: 2 . M ood Disorder Questionnaire 10-27-21: Please answer each question to the best of your ability. Questions P lease answer each question to the best of your ability. H as there ever been a time period when you were not your usual self and..., Y ou felt so good or hyper that other people thought you were not your normal self or you were so hyper that you got into trouble? N o ., Y ou were so irritable that you shouted at people or started fights or arguments? N o ., Y ou got much less sleep than usual and found that you didn't really miss it? N o ., Y ou felt much more self-confident than usual? N o ., Y ou were more talkative or spoke much faster than usual? N o ., T houghts raced through your head or you couldn't slow your mind down? Y es ., Y ou were so easily distracted by things around you that you had trouble concentrating or staying on track? Y es ., Y ou had more energy than usual? N o ., Y ou were more active or did many more things than usual? N o ., Y ou were more social or outgoing than usual, for example, you telephoned friends in the middle of the night? ., Y ou were more interested in sex than usual? ., Y ou did things that were usual for you or that other people might have thought were excessive, foolish, or risky? N o ., S pending money got you or your family in trouble? N o ., I f you checked YES to more than one of the above, have several of these ever happened during the same period of time? Y es ., H ow much of a problem did any of these cause you - like being unable to work; having family, money or legal troubles; getting into arguments or fights? M inor problem .. S creening: [place] Suicide Severity Rating Scale (LF) D o you want to initiate with S creener form, 1 . Wish to be : Have you wished you were or wished you could go to sleep and not wake up? N o, 2 . Suicidal Thoughts: Have you actually had any thoughts of killing yourself? N o, 6 . Suicide Behavior Question: Have you ever done anything,started to do anything, or prepared to end your life? N o, I nterpretation: L ow Risk. C SSRS Interpretation and Follow Up Plan: CSSRS Interpretation and Follow Up Plan C SSRS Screen documented using SF Y es, R isk Disposition from SF L ow - No Follow Up Plan Required, F ollow Up Plan N o Follow Up Plan required at this time., T imeframe of Screening T latanya.? D epression Screening: PHQ-9 L ittle interest or pleasure in doing things N ot at all, F eeling down, depressed, or hopeless N ot at all, T rouble falling or staying asleep, or sleeping too much N ot at all, F eeling tired or having little energy M ore than half the days, P oor appetite or overeating N ot at all, F eeling bad about yourself or that you are a failure, or have let yourself or your family down N ot at all, T rouble concentrating on things, such as reading the newspaper or watching television S everal days, M oving or speaking so slowly that other people could have noticed; or the opposite, being so fidgety or restless that you have been moving around a lot more than usual N ot at all, T houghts that you would be better off or of hurting yourself in some way N ot at all, T otal Score 3 , I nterpretation M inimal Depression. P sychiatric Assessment - Current Symptoms: How ct. doing today? Client is a 48 yo F in office reporting I am doing okay. Reports brain fog continues. Sees neurology- has an appt coming up. Social: Trying to get back to working some Car is not doing great, issues with windows States roommate's sister just a week ago. He is out of physical rehab now. Reports she has lost her phone. Depression: 08/15 Anxiety: 5-10/15 Anger/irritability: 07/15 Sleep: I don't ever feel like I get enough Appetite: Good Hallucinations/paranoia: Denies 17 yo cat, not doing super great, my baby boy. [facility] on the . Denies SI/HI. Medical changes/concerns: Denies. * ROS: P sych ROS: Constitutional D enies. E yes D enies. E ars/Nose/Mouth/Throat D enies. R espiratory D enies. A llergic/Immunologic D enies.?Cardiovascular D enies. G I D enies. G U D enies. M usculoskeletal R eports, b ilateral arm pain. N eurological R eports, t rouble with short-term memory. I ntegumentary D enies. E ndocrine D enies. H ematological/Lymphatic D enies. P sych D enies SI/HI/AH/VH. * Medical History: * Surgical History: H ernia 1974C-section -secction 2017laparoscopic 2019Elbow/hand surgery 12/2022 * Hospitalization/Major Diagno stic Procedure: N o Hospitalization History. * Family History: F ather: . M other: alive, unknown. 2 sister(s) - healthy. 1 son(s) , 1 daughter(s) . . Paternal grandmother: trauma, depression Maternal grandmother: anxiety, depression. * Social History: P rimary Social History: L iving Arrangement L iving Arrangement: D ependent Living, L iving with: Vince burrell, I s this a supportive environment? Y es. A lcohol Use A lcohol Use Frequency: Never. I llicit Substance Usage I llicit Substance Usage: N o. E mployment Status E mployment Status: O n Disability workers comp. S dinh Question Alcohol Screening How may times in the past year have you had (4 for women, or 5 for men) or more drinks in a day??0. * Medications: T akingMultivitamin Adult - Tablet 1 tablet Orally Once a day Albuterol Sulfate HFA 108 (90 Base) MCG/ACT Aerosol Solution 1 puff as needed Inhalation every 4 hrs Triamcinolone Acetonide 0.1 % Cream 1 application Externally Two times a Week Flonase 50 MCG/DOSE Inhaler 1 spray in each nostril Nasally Once a day Diclofenac Sodium 3 % Gel 1 application to top of left foot as needed for pain Externally Twice a day guaiFENesin 200 MG Tablet 1 tablet as needed Orally every 4 hrs Omeprazole 10 MG Capsule Delayed Release 1 capsule 30 minutes before morning meal Orally Once a day Phenazopyridine HCl 100 MG Tablet 2 tablets after meals Orally Three times a day Austedo XR 24 MG Tablet Extended Release 24 Hour TAKE 1 TABLET BY MOUTH DAILY carBAMazepine 200 MG Tablet 3 tablets Orally Twice a day Amoxicillin-Pot Clavulanate 875-125 MG Tablet 1 tablet Orally twice a day Austedo XR 30 MG Tablet Extended Release 24 Hour 1 tablet Orally Once a day clonazePAM 0.5 MG Tablet 1 tablet Orally nightly prn sleep-onset anxiety and insomnia OLANZapine 15 MG Tablet 1 tablet Orally Once a day Taking Multivitamin Adult - Tablet 1 tablet Orally Once a day Taking Albuterol Sulfate HFA 108 (90 Base) MCG/ACT Aerosol Solution 1 puff as needed Inhalation every 4 hrs Taking Triamcinolone Acetonide 0.1 % Cream 1 application Externally Two times a Week Taking Flonase 50 MCG/DOSE Inhaler 1 spray in each nostril Nasally Once a day Taking Diclofenac Sodium 3 % Gel 1 application to top of left foot as needed for pain Externally Twice a day Taking guaiFENesin 200 MG Tablet 1 tablet as needed Orally every 4 hrs Taking Omeprazole 10 MG Capsule Delayed Release 1 capsule 30 minutes before morning meal Orally Once a day Taking Phenazopyridine HCl 100 MG Tablet 2 tablets after meals Orally Three times a day Taking Austedo XR 24 MG Tablet Extended Release 24 Hour TAKE 1 TABLET BY MOUTH DAILY Taking carBAMazepine 200 MG Tablet 3 tablets Orally Twice a day Taking Amoxicillin-Pot Clavulanate 875- 125 MG Tablet 1 tablet Orally twice a day Taking Austedo XR 30 MG Tablet Extended Release 24 Hour 1 tablet Orally Once a day Taking clonazePAM 0.5 MG Tablet 1 tablet Orally nightly prn sleep-onset anxiety and insomnia Taking OLANZapine 15 MG Tablet 1 tablet Orally Once a day Not-TakingCephalexin 500 MG Capsule 1 capsule Orally every 6 hrs Acetaminophen 500 MG Tablet two tablets as needed for painb Orally every 8 hours Wixela Inhub 250-50 MCG/DOSE Aerosol Powder Breath Activated 1 puff Inhalation Twice a day Fluconazole 200 MG Tablet 1 tablet Orally once Amoxicillin-Pot Clavulanate 500-125 MG Tablet 1 tablet Orally every 12 hrs Famotidine 40 MG Tablet TAKE 1 TABLET BY MOUTH AT BEDTIME Silver sulfADIAZINE 1 % Cream 1 application Externally Once a day Medication List reviewed and reconciled with the patientNot-Taking Cephalexin 500 MG Capsule 1 capsule Orally every 6 hrs Not-Taking Acetaminophen 500 MG Tablet two tablets as needed for painb Orally every 8 hours Not-Taking Wixela Inhub 250-50 MCG/DOSE Aerosol Powder Breath Activated 1 puff Inhalation Twice a day Not- Taking Fluconazole 200 MG Tablet 1 tablet Orally once Not-Taking Amoxicillin-Pot Clavulanate 500-125 MG Tablet 1 tablet Orally every 12 hrs Not-Taking Famotidine 40 MG Tablet TAKE 1 TABLET BY MOUTH AT BEDTIME Not-Taking Silver sulfADIAZINE 1 % Cream 1 application Externally Once a day Medication List reviewed and reconciled with the patient * Allergies: B acttresa DS: Darling[Allergies Verified] Objective: * Vitals: I nitials: sle, Wt:180.8 lbs, Ht: 61 in, BMI:34.16, BP:110/76, HR:75, Oxygen sat %:97, Temp:98.2, RR:16, LMP: 09/2024, Pain scale:4. * Examination: M ental Status Exam: SENSORIUM AND COGNITION Alert, Oriented to Person, Oriented to Place, Oriented to Time, Oriented to Situation. ATTENTION AND CONCENTRATION No deficits. APPEARANCE A ppropriate, Neatly dressed and groomed, Appears stated age. ATTITUDE AND BEHAVIOR Cooperative, Receptive. MEMORY Immediate, Recent, Remote. EYE CONTACT G ood. AFFECT B road/Full, Congruent with reported mood. MOOD Euthymic,Worried. SPEECH QUANTITY Appropriate. SPEECH QUALITY Appropriate volume. THOUGHT PROCESS Coherent and goal directed. THOUGHT CONTENT Appropriate - WNL. MOTOR ACTIVITY N ormal gait, Goal directed. SUICIDAL IDEATION Denies suicidal ideation. HOMICIDAL IDEATION Denies homicidal ideation. HALLUCINATIONS Denies hallucinations. INSIGHT Good. JUDGMENT Good. FUND OF KNOWLEDGE F air. ABILITY TO PARTICIPATE IN TREATMENT M oderate. WILLINGNESS TO PARTICIPATE IN TREATMENT High. ? Assessment: * Assessment: 1. M ajor depression - F32.9 2 . P ost traumatic stress disorder (PTSD) - F43.10 3 . M edication monitoring encounter - Z51.81 4 . N utritional counseling - Z71.3 5 . T ardive dyskinesia - G24.01 Plan: * Treatment: 2. P ost traumatic stress disorder (PTSD) Refill clonazePAM Tablet, 0.5 MG, 1 tablet, Orally, nightly prn sleep-onset anxiety and insomnia, 30 days, 30 Tablet, Refills 0. Notes: PDMP checked without concerns. May fill. Discussed long-term use and memory concerns in length. Client to discuss with neurology. Client agreeable to this plan. Discussed with client: Benzodiazepines are not recommended for long-term use due topotent and dangerous side effects that include increased drowsiness, memoryimpairment, increased irritability, mood changes, and worsening of PTSDsymptoms. Benzodiazepines increase respiratory depression which can aggravateconditions such as sleep apnea and COPD leading to possible . They shouldalso never be combined with alcohol, pain medications (especially opioids), orstreet drugs because this can lead to overdose and possible .If you are under the influence of benzodiazepines whileoperating a motor vehicle and are involved in a car accident you can be chargedwith driving while intoxicated. Benzodiazepine use increases unsteady gaitthereby increasing the risk of falls, broken bones, and concussions.Benzodiazepine use is intended for short-term use, up to 3 weeks at most.Long-term use of benzos can lead to dependence, rebound anxiety/agitation, andwithdrawal symptoms that include sleep disturbance, irritability, increasedtension and anxiety, panic attacks, hand tremor, sweating, difficulty inconcentration, dry retching, and nausea, some weight loss, palpitations,headache, muscular pain and stiffness, and a host of perceptual changes. 3. T ardive dyskinesia Refill Austedo XR Tablet Extended Release 24 Hour, 30 MG, 1 tablet, Orally, Once a day, 30 days, 30, Refills 0. Notes: Continue, takes in the morning, reports internal restlessness, increase dose. 4. O thers Notes: Reasons, potential benefits, potential risks, interactions and [...] May also contact the 24-hour crisis hotline ([facility]), refer to the closest emergency room or [...] of education, treatment plan and follow up. * Recommended Wellness and Pre vention Guidelines: * S celia A gina L ast Done N ext Due A ction Taken N ONCOMPLIANT A lcohol use screening - 0 10/21/2024 - N ONCOMPLIANT A sthma symptom assessment - 0 10/21/2024 - N ONCOMPLIANT B reast cancer screening 0 10/03/2023 0 10/21/2024 - N ONCOMPLIANT C ervical cancer screening - 0 10/21/2024 - N ONCOMPLIANT C holesterol control (genl pop) 0 01/15/2024 0 10/21/2024 - N ONCOMPLIANT C olonoscopy - 0 10/21/2024 - N ONCOMPLIANT C olorectal cancer screening - 0 10/21/2024 - N ONCOMPLIANT D epression followup 0 09/03/2024 0 10/21/2024 - N ONCOMPLIANT I FOBt 0 09/03/2024 (O) 0 10/21/2024 - N ONCOMPLIANT M ammogram, Screening - 0 10/21/2024 - N ONCOMPLIANT P ap +CtNg - 0 10/21/2024 - N ONCOMPLIANT T etanus - 0 10/21/2024 - N ONCOMPLIANT T etanus and Pertussi - 0 10/21/2024 - * Procedure Codes: 3 008F BODY MASS INDEX [id number] MEDICAL NUTRITION, INDIV, [id number] BEHAV CHNG SMOKING 3-10 MIN * Preventive Medicine: Counseling: C are goal follow-up plan: B CO management provided Y es, A martha Normal BMI Follow-up L jigar education regarding diet. S MOKING: P atient counselled on the dangers of tobacco use and urged to quit. . . * Follow Up: 4 Weeks (Reason: Psych F/U in-office) * * Sign off status: Completed true * Provider: Brit Leigh, MSN, RN PRACTITIONER, [employer]NAGER-C Date: 0 10/21/2024 Generated for Renee crain/Dennis/Gussmitting on: 0 10/22/2024 08:06 PM CDT History and Physical Notes * HPI (History of Present Illness) Category Sub-Category Detail Notes Category Not es Depression Screening PHQ-9 Little inte rest or pleasure in doing things: Not at all Feeling down, depressed, or hopeless: No t at all Trouble falling or staying asleep, or sl eeping too much: Not at all Feeling tired or having little energy: M ore than half the days Poor appetite or overeating: Not at all Feeling bad about yourself o r that you are a failure, or have let yourself or your family down: Not at all Trouble concentrating on thi ngs, such as reading the newspaper or watching television: Several days Moving or speaking so slowly that other people could have noticed; or the opposite, being so fidgety or restless that you have been moving around a lot more than usual: Not at all Thoughts that you would be b gissel off or of hurting yourself in some way: Not at all Total Score: 3 Interpretation: Minimal Depression KETTY-7 Screening 1. Feeling nervous, anxious, or on edge :, More than half the days-2 2. Not being able to stop or control wor rying :, Not at all-0 3. Worrying too much about different thi ngs :, Not at all-0 4. Trouble sleeping/relaxing :, Not at a ll-0 5. Being so restless that it is hard to sit still :, Not at all-0 6. Becoming easily annoyed or irritable :, Not at all-0 7. Feeling afraid, as if something awful might happen :, Not at all-0 KETTY-7 Score Total score:: 2 Psychiatric Assessment - Current Symptoms How ct. doing today? Client is a 48 yo F in office reporting I am doing okay. Reports brain fog continues. Sees neurology- has an appt coming up. Social: Trying to get back to working some Car is not doing great, issues with windows States roommate's sister just a week ago. He is out of physical rehab now. Reports she has lost her phone. Depression: 08/15 Anxiety: -10/15 Anger/irritability: 07/15 Sleep: I don't ever feel like I get enough Appetite: Good Hallucinations/paranoia: Denies 17 yo cat, not doing super great, my baby boy. Reports getting voucher from [employer]- interview for it on the . Denies SI/HI. Medical changes/concerns: Denies Screening [place] Suicide Severity Rating Scale (LF) Do you want to initiate with: Screener form 1. Wish to be : Have you wished you were or wished you could go to sleep and not wake up?: No 2. Suicidal Thoughts: Have you actually had any thoughts of killing yourself?: No 6. Suicide Behavior Question: Have you ever done anything,started to do anything, or prepared to end your life?: No Interpretation:: Low Risk Mood Disorder Questionnaire 10-27-21 Questions Please answer each question to the best of your ability.: Has there ever been a time period when you were not your usual self and... You felt so good or hyper th at other people thought you were not your normal self or you were so hyper that you got into trouble?: No . You were so irritable that y ou shouted at people or started fights or arguments?: No . You got much less sleep than usual and found that you didn't really miss it?: No . You felt much more self-confident than u sual?: No . You were more talkative or spoke much fa ster than usual?: No . Thoughts raced through your head or you couldn't slow your mind down?: Yes . You were so easily distracte d by things around you that you had trouble concentrating or staying on track?: Yes . You had more energy than usual?: No . You were more active or did many more th ings than usual?: No . You were more social or outg oing than usual, for example, you telephoned friends in the middle of the night?: . You were more interested in sex than usu al?: . You did things that were usu al for you or that other people might have thought were excessive, foolish, or risky?: No . Spending money got you or your family in trouble?: No . If you checked YES to more t garcia one of the above, have several of these ever happened during the same period of time?: Yes . How much of a problem did an y of these cause you - like being unable to work; having family, money or legal troubles; getting into arguments or fights?: Minor problem . CSSRS Interpretation and Follow Up Plan CSSRS Interpretation and Follow Up Plan CSSRS Screen documented using SF: Yes Risk Disposition from SF: Low - No Follo w Up Plan Required Follow Up Plan: No Follow Up Plan requir ed at this time. Timeframe of Screening: Today Examination Category Sub-Category Detail Notes Category Not es Mental Status Exam SENSORIUM AND COGNITION Alert , Oriented to Person, Oriented to Place, Oriented to Time, Oriented to Situation ATTENTION AND CONCENTRATION No deficits APPEARANCE Appropriate, Neatly dressed and groomed, Appears stated age ATTITUDE AND BEHAVIOR Cooperative, Supervisor Wet Room tive MEMORY Immediate, Recent, R emote EYE CONTACT Good AFFECT Broad/Full, Congruen t with reported mood MOOD Euthymic,Worried SPEECH QUANTITY Appropriate SPEECH QUALITY Appropriate volume THOUGHT PROCESS Coherent and goal di rected THOUGHT CONTENT Appropriate - WNL MOTOR ACTIVITY Normal gait, Goal di rected SUICIDAL IDEATION Denies suicidal idea tion HOMICIDAL IDEATION Denies homicidal nahomy ation HALLUCINATIONS Denies hallucination s INSIGHT Good JUDGMENT Good FUND OF KNOWLEDGE Fair ABILITY TO PARTICIPATE IN TREATMENT Mode rate WILLINGNESS TO PARTICIPATE IN TREATMENT High
--- OUTSIDE RECORDS SUMMARY | 2024-10-22 20:06 | XMS_ITS ---
Author Organization [facility] Address [address] [place] [address] Care Team Providers Care Safety Risk Lead Name Role Phone Iris Guzmán Primary Care Provider [phone] Miracle Leigh Unavailable [phone] REASON FOR VISIT ER f/u, she says she may be still having the same bladder issue. Social History Sex Assigned At : Social History Observation Description Sex Assigned At Female Encounters Encounter Location Date Provider Diagnosis [facility] [address] [address] 10/17/2024 Iris Guzmán Plan Of Treatment No Information Progress Notes * OCHOA RyaninDOB:[birth year] (48 yo F)Acc No.[id number]:10/17/2024 UNLOCKED PROGRESS NOTE Progress Note Patient: Lelo KRISHNANELISAThom HERNANDEZ Provider: Alice Guzmán, MSN, WARDROBE TECHNICIAN, TROUBLE CLERK-BC, TROUBLE CLERK-C :1975 A ge:48 Y S ex:Female Date:10/17/2024 Address:[address], [place], [place]-[address] Subjective: * Chief Complaints: * 1 . ER f/u, she says she may be still having the same bladder issue.. * Medical History: Objective: * Vitals: Assessment: Plan: * Treatment: * * Electronic signature of Deshawn Guzmán , PARKER, [id number] on 10/22/2024 at 08:06 PM CDT Sign off status: Pending * Provider: Alice Guzmán, MSN, WARDROBE TECHNICIAN, TROUBLE CLERK-BC, TROUBLE CLERK-C Date: 0 10/17/2024 Generated for Printing/Faxing/eTransmitting on: 0 10/22/2024 08:06 PM CDT
--- OUTSIDE RECORDS SUMMARY | 2024-10-22 20:06 | XMS_ITS | CONTINUITY OF CARE DOCUMENT ---
Author Name franciscodamarisselina Address Unknown Organization [facility] Address [address] [place] [address] Phone [phone] Care Team Providers Care Live Truck Technician Name Role Phone Uvaldo EPREZ, Jeronimo Unavailable ELTON PEREZ, ALBER Unavailable INSURANCE PROVIDERS Payer name Policy type / Coverage type [employer] red green party [employer] Medicaid 1 [id number]
--- OUTSIDE RECORDS SUMMARY | 2024-10-22 20:06 | XMS_ITS | Referral Summary ---
Author Organization [facility] al Address [address] [place] [address] Care Team Providers Care Tractor Crane Operator Name Role Phone Unknown, Notinfile Primary Care [...] on file Legal Sex Female 3:40 PM BINGO CASHIER Gender Identity Not on file Sexual Orientation Not on file Last Filed Vital Signs Vital Sign Reading Time Taken Comments Blood Pressure 120/60 02/29/2024 2:57 PM CDT Pulse 85 02/29/2024 2:57 PM CDT Temperature 36.6 C (97.8 F) 07/08/2022 11:38 AM BINGO CASHIER Respiratory Rate 20 02/29/2024 2:57 PM CDT [...] HEPATITIS C AB Routine 07/05/2016 4:53 AM BINGO CASHIER from Last 3 Months or Most Recently Relevant to Health Maintenance Results * Serum Hepatitis C ab (07/05/2016 4:53 AM BINGO CASHIER) HCV ab Nonreactive CDR HIST ORICAL RESULTS Serum 07/05/2016 4:53 AM BINGO CASHIER Narrative CDR HISTORICAL RESULTS - 07/06/2016 4:20 AM BINGO CASHIER Interpretive Data Positive results should be confirmed by a molecular method. If positive, a second separately collected sample should be submitted for Hepatitis C Virus (HCV) RNA Detection and Quantitation by Real-Time Reverse Business Objects Report Developer-PCR (RT-PCR). Current interpretive data was last revised on 2016. Moisés Mendieta MD LAB BLOOD ORDERABLES Fi nal Result CDR HISTORICAL RESULTS from Last 3 Months or Most Recently Relevant to Health Maintenance [place] [address] [place] [address] [facility] Care Teams Tractor Crane Operator Relationship Specialty Start Date End Date Unknown, Notinfile PCP - General 04/23/24
--- OUTSIDE RECORDS SUMMARY | 2024-10-22 20:06 | XMS_ITS | Patient Health Record ---
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 (ICD-10 - F32.9) 09/17/2024 Post traumatic stress disorder (PTSD) (ICD-10 - F43.10) 08/12/2024 Tardive dyskinesia (ICD-10 - G24.01) 08/08/2024 Major depression (ICD-10 - F32.9) carbamazepine filled by neurology Sees neuro every 3-9 months. Sees her in 2 months ago. 01/15/2024 UTI symptoms (ICD-10 - R39.9) 01/15/2024 Adult general medical exam (ICD-10 - Z00.00) 02/09/2024 Nutritional counseling (ICD-10 - Z71.3) 05/02/2024 Obesity (BMI 30-39.9) (ICD-10 - E66.9) 05/02/2024 UTI symptoms (ICD-10 - R39.9) Follow with urology as recommended. 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 02/08/2024 Post traumatic stress disorder (PTSD) (ICD-10 [...] stiffness, and a host of perceptual changes. 04/08/2024 Recurrent UTI (ICD-10 - N39.0) will request records from Urologist 04/25/2024 Post traumatic stress disorder (PTSD) (ICD-10 - F43.10) PDMP checked without concerns. May fill 05/08/2024 Discussed long-term use and memory [...] stiffness, and a host of perceptual changes. 05/20/2024 Nutritional counseling (ICD-10 - Z71.3) 07/08/2024 Post traumatic stress disorder (PTSD) (ICD-10 [...] stiffness, and a host of perceptual changes. 07/01/2024 Major depression (ICD-10 - F32.9) 08/01/2024 Post traumatic stress disorder (PTSD) (ICD-10 - F43.10) 08/08/2024 Post traumatic stress disorder (PTSD) (ICD-10 [...] and a host of perceptual changes. 12/06/2023 Post traumatic stress disorder (PTSD) (ICD-10 [...] stiffness, and a host of perceptual changes. 01/15/2024 Exposure to potential infection (ICD-10 - Z20.9) 11/27/2023 Post traumatic stress disorder (PTSD) (ICD-10 - F43.10) 03/18/2024 Post traumatic stress disorder (PTSD) (ICD-10 [...] stiffness, and a host of perceptual changes. 03/18/2024 Medication monitoring encounter (ICD-10 - Z51.81) 12/06/2023 Medication monitoring encounter (ICD-10 - Z51.81) Discussed results- PDMP confirms client has been out of medication for around one week. 07/08/2024 Medication monitoring encounter (ICD-10 - Z51.81) 07/01/2024 Post traumatic stress disorder (PTSD) (ICD-10 - F43.10) 05/20/2024 UTI (urinary tract infection) (ICD-10 - N39.0) 04/25/2024 Medication monitoring encounter (ICD-10 - Z51.81) 04/08/2024 Screening for cervical cancer (ICD-10 - Z12.4) 02/08/2024 Medication monitoring encounter (ICD-10 - Z51.81) 01/15/2024 Vaginal discharge (ICD-10 - N89.8) 10/21/2024 Medication monitoring encounter (ICD-10 - Z51.81) 08/08/2024 Medication monitoring encounter (ICD-10 - Z51.81) 01/15/2024 Screening for metabolic disorder (ICD-10 - Z13.228) 02/09/2024 UTI (urinary tract infection) (ICD-10 - N39.0) 05/02/2024 Nicotine dependence, unspecified, uncomplicated (ICD-10 - F17.200) 09/03/2024 UTI symptoms (ICD-10 - R39.9) 02/09/2024 Seasonal allergic rhinitis, unspecified trigger (ICD-10 - J30.2) 09/03/2024 Sinusitis (ICD-10 - J32.9) 02/09/2024 Osteoarthritis (ICD-10 - M19.90) 01/15/2024 Screening for thyroid disorder (ICD-10 - Z13.29) 01/15/2024 Screening for thyroid disorder (ICD-10 - Z13.29) 04/25/2024 Tardive dyskinesia (ICD-10 - G24.01) Client reports improvement in abnormal movements with increase in dose to 12mg BID (24mg) but has increase in anxiety. Changing forms to XR for client to take at night to aid with SE profile. Client v/u. 04/25/2024 Nutritional counseling (ICD-10 - Z71.3) 07/08/2024 Nutritional counseling (ICD-10 - Z71.3) 10/21/2024 Nutritional counseling (ICD-10 - Z71.3) 08/08/2024 Nutritional counseling (ICD-10 - Z71.3) 03/18/2024 Nutritional counseling (ICD-10 - Z71.3) 01/15/2024 Screening for hyperlipidemia (ICD-10 - Z13.220) 08/08/2024 Tardive dyskinesia (ICD-10 - G24.01) Continue, takes in the morning, reports internal restlessness, increase dose. 07/08/2024 Tardive dyskinesia (ICD-10 - G24.01) Continue, takes in the morning, reports internal restlessness, increase dose. 10/21/2024 Tardive dyskinesia (ICD-10 - G24.01) Continue, takes in the morning, reports internal restlessness, increase dose. 01/15/2024 Screening for diabetes mellitus (ICD-10 - Z13.1) 02/09/2024 Contact dermatitis (ICD-10 - L25.9) 01/15/2024 Screening for deficiency anemia (ICD-10 - Z13.0) 01/15/2024 Screening for metabolic disorder (ICD-10 - Z13.228) 01/15/2024 UTI symptoms (ICD-10 - R39.9) 01/15/2024 Exposure to potential infection (ICD-10 - Z20.9) 01/15/2024 Vaginal discharge (ICD-10 - N89.8) 01/15/2024 Screening for diabetes mellitus (ICD-10 - Z13.1) 01/15/2024 Screening for deficiency anemia (ICD-10 - Z13.0) 04/25/2024 Other Reasons, potential benefits, potential risks, [...] May also contact the 24-hour crisis hotline ([facility]), refer to the closest emergency room or [...] May also contact the 24-hour crisis hotline ([facility]), refer to the closest emergency room or [...] assess appearance, affect, AIMS, or vital signs. 05/07/2024 Other Learning About the Safe Use of Antibiotics material was published, Cephalexin Oral Capsule (CEPHALEXIN - ORAL) material was published to patient portal, Learning About the Safe Use of Antibiotics material was printed, Cephalexin Oral Capsule (CEPHALEXIN - ORAL) material was printed 09/03/2024 Other Learning About the Safe Use of Antibiotics material was discussed. Pt was educated on use of antibiotic medication including dosing, side effects, adverse effects and anticipated response. Pt was also educated on importance of completing full course of treatment as ordered. Patient voiced understanding of all. 10/21/2024 Other Reasons, potential benefits, potential risks, [...] May also contact the 24-hour crisis hotline ([facility]), refer to the closest emergency room or [...] of education, treatment plan and follow up. 02/08/2024 Other Reasons, potential benefits, potential risks, [...] May also contact the 24-hour crisis hotline ([facility]), refer to the closest emergency room or [...] as ordered. Patient voiced understanding of all. 07/08/2024 Other Reasons, potential benefits, potential risks, [...] May also contact the 24-hour crisis hotline ([facility]), refer to the closest emergency room or [...] assess appearance, affect, AIMS, or vital signs. 01/15/2024 Other Learning About the Safe Use of Antibiotics material was discussed. Pt was provided with education regarding safe use of antibioitics, impacts of overuse of antibiotics, why antibiotics were not prescribed in this situation, and when to call the office for continued symptoms. At home treatments discussed based on symptoms. 03/18/2024 Other Reasons, potential benefits, potential risks, [...] May also contact the 24-hour crisis hotline ([facility]), refer to the closest emergency room or [...] assess appearance, affect, AIMS, or vital signs. [place] agreement to continue current regimen at this time and monitor internal restlessness. Plan Of Treatment Future Test Test Name Order Date Mammogram Breast - Bilateral Screening 0 10/03/2023 Occult Blood, Fecal, [place] ([id number]) 025 UA/M w/rflx Culture, Routine 09/03/2024 Insurance Providers Payer Name Payer Address Payer Phone Subscriber Number Group Number Insured Name Patient Relationship to Insured Coverage Start Date Coverage End Date [facility] Attn Claims Department [address] [place] [address] [phone] [id number] Thom Ponce Self - patient is the insured [facility] Attn Claims Department [address] [place] [address] [phone] [id number] Ryan Poncein Self - patient is the insured 1 Medical (General) History Medical History History ICD Code Post depression F53.0 Depression F32.9 Epilepsy G40.909 Post traumatic stress disorder (PTSD) F4 3.10 Lupus Surgical History Surgery Date(Month/Year) Hernia 1974 1997 C-secction 2016 laparoscopic 2019 Elbow/hand surgery 12/2022 Hospitalization History Reason Date(Month/Year)
[2024-10-22 20:07] VITALS: BP 122/82; PULSE 78; RESP 16; TEMP 36.6; O2SAT 98
--- OUTSIDE RECORDS SUMMARY | 2024-10-22 20:22 | XMS_ITS | CONTINUITY OF CARE DOCUMENT ---
Author Name franciscodamarisselina Address Unknown Organization [facility] Address [address] [place] [address] Phone [phone] Care Team Providers Care Registered Public Health Nurse Name Role Phone Uvaldo PEREZ, Jeronimo Unavailable ELTON PEREZ, ALBER Unavailable [phone] INSURANCE PROVIDERS Payer name Policy type / Coverage type Shena red green party [employer] Medicaid 1 [id number]
[2024-10-22 20:39] LABS: Add Urine Microscopic? YES; Appearance Urine Clear (Clear); Bacteria Urine 4+ /hpf; Bilirubin Urine Negative (Negative); Blood Urine Trace (Negative); Color Urine Dark Yellow (Yellow); Glucose Urine UA Negative (Negative); Ketones Urine Trace mg/dL (Negative); Leukocyte Esterase Ur 1+ LEU/UL (Negative); Mucus Urine Present /lpf; Need Manual Microscopic Reviewed; Nitrate Urine Positive (Negative); Protein Urine Trace mg/dL (Negative); Specific Grav Ur 1.028 (1.001-1.035); Squamous Epithelial Cell Urine Few /hpf (Few)
[2024-10-22 20:52] LABS: Basophils Percent Auto 0.2 % (0.2-1.2); Eosinophils Absolute Auto 0.2 K/mm3 (0-0.3); Eosinophils Percent Auto 2.9 % (0-4.4); Hematocrit 37.3 % (37.0-47.0); Hemoglobin 12.8 g/dL (12.0-15.0); Immature Granulocyte Absolute 0.03 K/mm3 (0.00-0.031); Immature Granulocyte Percent A 0.5 % (0-0.5); Lymphocytes Absolute Auto 1.22 K/mm3 (0.9-3.2); Lymphocytes Percent Auto 20.8 % (18.3-44.2); Mean Corpuscular HGB Conc 34.3 g/dl (32-36); Mean Corpuscular Volume 90.3 fl (80-100); Mean Platelet Volume 8.3 fl (7.4-10.4); Monocytes Absolute Auto 0.5 K/mm3 (0.1-0.6); Monocytes Percent Auto 8.3 % (2.6-8.5); Neutrophils Percent Auto 67.3 % (45.5-73.1); Platelet Count Result 320 k/mm3 (150-375); Red Blood Count 4.13 M/mm3 (4.2-5.4); Red Cell Distribution Width 12.6 % (11.5-14.5); White Blood Count 5.9 K/mm3 (4.5-10.0)
--- NOTE | 2024-10-22 20:52 | ED_ITS ---
HPI - Female Genitourinary General Chief complaint: Urogenital-Female <Becky Aguirre PA-C - Last Filed: 10/22/24 23:41> Stated complaint: uti, ear infection <Becky Aguirre PA-C - Last Filed: 10/22/24 23:41> Time Seen by Provider: 10/22/24 20:08 <Becky Aguirre PA-C - Last Filed: 10/22/24 23:41> Source: patient <SANDRA Eduardo Last Filed: 10/22/24 23:41> Mode of arrival: ambulatory <SANDRA Eduardo Last Filed: 10/22/24 23:41> Limitations: no limitations <Becky Aguirre PA-C - Last Filed: 10/22/24 23:41> History of Present Illness HPI Narrative: This is a 48-year-old female that presents to the emergency department with 2 complaints. Reporting she has had dysuria over the last week or so. Also reports bilateral flank pain. Reports history of frequent UTIs. Also endorsing bilateral ear discomfort, congestion. Denies fevers or vomiting. < Becky Aguirre PA-C - Last Filed: 10/22/24 23:41> Related Data Home medications: Home Medications ?Medication ?Instructions ?Recorded ?Confirmed ?Last Taken ?Type olanzapine 10 mg tablet 10 mg PO DAILY 01/11/22 10/23/24 10/23/24 History gabapentin 300 mg capsule 300 mg PO Q12H 10/23/24 10/23/24 10/22/24 20:00 History 300 mg oxybutynin chloride 10 mg 10 mg PO DAILY 10/23/24 10/23/24 10/22/24 07:00 History tablet,extended release 24 hr 10 mg pantoprazole 40 mg tablet,delayed 40 mg PO DAILY 10/23/24 10/23/24 10/22/24 07:00 History release 40 mg <SANDRA Eduardo Last Filed: 10/22/24 23:41> Allergies/Adverse reactions: Allergies Allergy/AdvReac Type Severity Reaction Status Date / Time hydroxychloroquine Allergy Mild Agitated Verified 10/22/24 20:59 peanut Allergy Anaphylaxis Verified 10/22/24 20:59 Sulfa (Sulfonamide AdvReac Muscle Pain Verified 10/22/24 20:59 Antibiotics) <Becky Aguirre PA-C - Last Filed: 10/22/24 23:41> Review of Systems 2 Review of Systems: CONSTITUTIONAL: Denies fever ENT: Reports congestion, otalgia. GASTROINTESTINAL: Denies abdominal pain, nausea, vomiting GENITOURINARY: Reports dysuria. Denies hematuria. <Becky Aguirre PA-C - Last Filed: 10/22/24 23:41> All systems reviewed & are unremarkable except as noted in HPI and below < Becky Aguirre PA-C - Last Filed: 10/22/24 23:41> [facility] Past Medical History Medical History: Medical History Vitamin D deficiency Inflammatory arthropathy ESTHER positive Anxiety Asthma Claustrophobia Seizures Depression <SANDRA Eduardo Last Filed: 10/22/24 23:41> Surgical History Surgical History: Surgical History History of tubal ligation History of History of hernia repair <Becky Aguirre PA-C - Last Filed: 10/22/24 23:41> Family History Family History: Family History Mother Family history of mental disorder Father Family history of diabetes mellitus in first degree relative Family history of coronary artery disease Other Arthritis Asthma Cancer Depression Diabetes mellitus Heart disease High cholesterol Hypertension <SANDRA Eduardo Last Filed: 10/22/24 23:41> Social History Social History: Social History Smoking status: Former smoker Tobacco type: cigarettes Additional smoking assessment comments: cigarettes 1/2 ppd x 5 1/2 years Alcohol intake: never Substance use type: marijuana Other substance usage details: smoking and eatables daily Do You Feel Safe in your Home?: No Lack of Transportation: YES Lack of Food: Sometimes True Current Housing: I Do Not Have Housing Concerned About Future Housing: YES Difficulty Paying Gas/Electric Bills: YES Difficulty Paying for Meds: YES Currently Unemployed: No Education: Associate Degree Difficulty w/ Childcare or Family Care: No Living arrangements: with roommate(s) Gender identity (if verbalized by the patient): Female Spiritual care concerns: No <Becky Aguirre PA-C - Last Filed: 10/22/24 23:41> Exam 2 Narrative: GENERAL: Well-appearing, well-nourished, and in no acute distress. HEAD: Normocephalic, atraumatic. EYES: EOMI. ENT: Nares clear, no rhinorrhea or epistaxis. Mucous membranes moist. Oropharynx without tonsillar hypertrophy exudate or other lesions. Right TM pearly nance non-bulging. Left TM erythematous with effusion present NECK: Supple. No adenopathy or masses. No carotid bruits or JVD CHEST: Clear to auscultation. No respiratory distress. No wheezes rales or rhonchi HEART: Regular rate and rhythm. No murmur heard. Normal peripheral pulses. ABDOMEN: Soft, nontender, nondistended, normal active bowel sounds. EXTREMITIES: Normal range of motion. No edema. SKIN: Warm, dry, no rash. NEURO: No focal deficits. Alert and oriented x3. PSYCH: Normal mood and affect <Becky Aguirre PA-C - Last Filed: 10/22/24 23:41> Course Course Emergency Course: Patient updated on her workup and recommendation for admission <Becky Aguirre PA-C - Last Filed: 10/22/24 23:41> [employer]/PA Physician Supervision This visit was performed by both a physician and an APC. I performed all aspects of the MDM as documented. <Abner Nicholas MD - Last Filed: 10/23/24 02:13> Consultations Consultation #1: Spoke with hospitalist about patient and workup who accepts admission < Becky Aguirre PA-C - Last Filed: 10/22/24 23:41> Date: 10/22/24 <Becky Aguirre PA-C - Last Filed: 10/22/24 23:41> Vital Signs Vital signs: Vital Signs Temperature 36.6 C 10/22/24 20:07 Pulse Rate 78 10/22/24 20:07 Respiratory Rate 16 10/22/24 20:07 Blood Pressure 122/82 10/22/24 20:07 Pulse Oximetry 98 10/22/24 20:07 Oxygen Delivery Room Air 10/22/24 20:07 Temperature 36.6 C 10/23/24 00:55 Pulse Rate 65 10/23/24 00:55 Respiratory Rate 18 10/23/24 00:55 Blood Pressure 138/85 10/23/24 00:55 Pulse Oximetry 100 10/23/24 00:55 Oxygen Delivery Room Air 10/22/24 20:07 <Becky Aguirre PA-C - Last Filed: 10/22/24 23:41> Vital Signs Temperature 36.6 C 10/22/24 20:07 Pulse Rate 78 10/22/24 20:07 Respiratory Rate 16 10/22/24 20:07 Blood Pressure 122/82 10/22/24 20:07 Pulse Oximetry 98 10/22/24 20:07 Oxygen Delivery Room Air 10/22/24 20:07 Temperature 36.6 C 10/23/24 00:55 Pulse Rate 65 10/23/24 00:55 Respiratory Rate 18 10/23/24 00:55 Blood Pressure 138/85 10/23/24 00:55 Pulse Oximetry 100 10/23/24 00:55 Oxygen Delivery Room Air 10/22/24 20:07 <Abner Nicholas MD - Last Filed: 10/23/24 02:13> MDM - Female Genitourinary MDM Narrative Medical decision making narrative: Patient presents to the emergency department with 2 complaints. Reporting bilateral ear pain, urinary symptoms. She is afebrile nontoxic appearing. Her vitals are stable. Cbc without leukocytosis. Metabolic panel hyponatremia with sodium of 124. Urine with evidence of infection. This was sent for culture. Patient started on IV antibiotics. Renal ultrasound without hydronephrosis or ureterolithiasis. Patient updated on her workup and recommendation for admission. Spoke with hospitalist about patient and workup who accepts admission <Becky Aguirre PA-C - Last Filed: 10/22/24 23:41> Differential Diagnosis Differential diagnosis: Likely urinary tract infection and other (kidney stone, otitis media) < Becky Aguirre PA-C - Last Filed: 10/22/24 23:41> Lab Data Attestation: I reviewed the patient's lab results. <Becky Aguirre PA-C - Last Filed: 10/22/24 23:41> Result diagrams: 10/22/24 20:36 10/22/24 22:18 <Becky Aguirre PA-C - Last Filed: 10/22/24 23:41> Labs: Lab Results 10/22/24 10/22/24 10/22/24 Range/Units 20:25 20:36 22:18 WBC 5.9 (4.5-10.0) K/mm3 RBC 4.13 L (4.2-5.4) M/mm3 Hgb 12.8 (12.0-15.0) g/dL Hct 37.3 (37.0-47.0) % MCV 90.3 (80-100) fl MCH 31.0 (26-34) pg MCHC 34.3 (32-36) g/dl RDW 12.6 (11.5-14.5) % Plt Count 320 (150-375) k/mm3 MPV 8.3 (7.4-10.4) fl Immature Gran % (Auto) 0.5 (0-0.5) % Neut % (Auto) 67.3 (45.5-73.1) % Lymph % (Auto) 20.8 (18.3-44.2) % [place] % (Auto) 8.3 (2.6-8.5) % Eos % (Auto) 2.9 (0-4.4) % Baso % (Auto) 0.2 (0.2-1.2) % Lymph # (Auto) 1.22 (0.9-3.2) K/mm3 [place] # (Auto) 0.5 (0.1-0.6) K/mm3 Eos # (Auto) 0.2 (0-0.3) K/mm3 Baso # (Auto) 0.0 (0.0-0.1) K/mm3 Abs Immat Gran (auto) 0.03 (0.00-0.031) K/mm3 Absolute Neuts (auto) 4.0 (1.3-6.7) K/mm3 Absolute Nucleated RBC 0.000 (0.0-0.012) K/mm3 Nucleated RBC % 0.0 (0.0-0.2) % Sodium 124 L 126 L (137-145) mmol/L Potassium 4.3 3.8 (3.4-5.0) mmol/L Chloride 95 L 98 (98-107) mmol/L Carbon Dioxide 21 L 22 (22-30) mmol/L Anion Gap 8 6 (4-12) mmol/L BUN 8 D 8 (7-17) mg/dL Creatinine 0.61 L 0.53 L (0.7-1.0) mg/dL Estim Creat Clear Calc 88 100 ml/min Estimated GFR > 60 > 60 (59 - ) Glucose 89 124 H (65-110) mg/dL Calcium 8.7 8.2 L (8.4-10.2) mg/dL Urine Color Dark yellow (Yellow) Urine Appearance Clear (Clear) Urine pH 6.0 (5.0-9.0) Ur Specific [place] 1.028 (1.001-1.035) Urine Protein Trace (Negative) mg/dL Urine Glucose (UA) Negative (Negative) mg/dL Urine Ketones Trace H (Negative) mg/dL Ur Blood (Man) Trace (Negative) Urine Nitrate Positive H (Negative) Urine Bilirubin Negative (Negative) Urine Urobilinogen 1.0 (<2.0) mg/dL Add Ur Microanalysis Reviewed Leukocyte Esterase Rfl 1+ H (Negative) OC/UL Urine RBC 3-5 H (0-2) /hpf Urine WBC 11-20 H (0-3) /hpf Ur Squamous Epith Cells Few (Few) /hpf Urine Bacteria 4+ H /hpf Urine Casts 3-5 Urine Mucus Present /lpf <Becky Aguirre PA-C - Last Filed: 10/22/24 23:41> Lab Results 10/22/24 10/22/24 10/22/24 Range/Units 20:25 20:36 22:18 WBC 5.9 (4.5-10.0) K/mm3 RBC 4.13 L (4.2-5.4) M/mm3 Hgb 12.8 (12.0-15.0) g/dL Hct 37.3 (37.0-47.0) % MCV 90.3 (80-100) fl MCH 31.0 (26-34) pg MCHC 34.3 (32-36) g/dl RDW 12.6 (11.5-14.5) % Plt Count 320 (150-375) k/mm3 MPV 8.3 (7.4-10.4) fl Immature Gran % (Auto) 0.5 (0-0.5) % Neut % (Auto) 67.3 (45.5-73.1) % Lymph % (Auto) 20.8 (18.3-44.2) % [place] % (Auto) 8.3 (2.6-8.5) % Eos % (Auto) 2.9 (0-4.4) % Baso % (Auto) 0.2 (0.2-1.2) % Lymph # (Auto) 1.22 (0.9-3.2) K/mm3 [place] # (Auto) 0.5 (0.1-0.6) K/mm3 Eos # (Auto) 0.2 (0-0.3) K/mm3 Baso # (Auto) 0.0 (0.0-0.1) K/mm3 Abs Immat Gran (auto) 0.03 (0.00-0.031) K/mm3 Absolute Neuts (auto) 4.0 (1.3-6.7) K/mm3 Absolute Nucleated RBC 0.000 (0.0-0.012) K/mm3 Nucleated RBC % 0.0 (0.0-0.2) % Sodium 124 L 126 L (137-145) mmol/L Potassium 4.3 3.8 (3.4-5.0) mmol/L Chloride 95 L 98 (98-107) mmol/L Carbon Dioxide 21 L 22 (22-30) mmol/L Anion Gap 8 6 (4-12) mmol/L BUN 8 D 8 (7-17) mg/dL Creatinine 0.61 L 0.53 L (0.7-1.0) mg/dL Estim Creat Clear Calc 88 100 ml/min Estimated GFR > 60 > 60 (59 - ) Glucose 89 124 H (65-110) mg/dL Calcium 8.7 8.2 L (8.4-10.2) mg/dL Urine Color Dark yellow (Yellow) Urine Appearance Clear (Clear) Urine pH 6.0 (5.0-9.0) Ur Specific [place] 1.028 (1.001-1.035) Urine Protein Trace (Negative) mg/dL Urine Glucose (UA) Negative (Negative) mg/dL Urine Ketones Trace H (Negative) mg/dL Ur Blood (Man) Trace (Negative) Urine Nitrate Positive H (Negative) Urine Bilirubin Negative (Negative) Urine Urobilinogen 1.0 (<2.0) mg/dL Add Ur Microanalysis Reviewed Leukocyte Esterase Rfl 1+ H (Negative) OC/UL Urine RBC 3-5 H (0-2) /hpf Urine WBC 11-20 H (0-3) /hpf Ur Squamous Epith Cells Few (Few) /hpf Urine Bacteria 4+ H /hpf Urine Casts 3-5 Urine Mucus Present /lpf <Abner Nicholas MD - Last Filed: 10/23/24 02:13> Imaging Data Radiologist's impression: ITS Impressions Renal Ultrasound 10/22/24 21:22 IMPRESSION: Unremarkable sonographic evaluation of the bilateral kidneys, as detailed above. <Becky Aguirre PA-C - Last Filed: 10/22/24 23:41> Critical Care Time Critical Care Time Critical Care Time: No <Becky Aguirre PA-C - Last Filed: 10/22/24 23:41> Discharge Plan Discharge Clinical Impression: Acute UTI, Acute hyponatremia Otitis media Qualifiers: Otitis media type: unspecified Chronicity: acute Qualified Code(s): H66.90 - Otitis media, unspecified, unspecified ear <Becky Aguirre PA-C - Last Filed: 10/22/24 23:41> Patient Disposition: Still a Patient <Becky Aguirre PA-C - Last Filed: 10/22/24 23:41> Condition: Stable <Becky Aguirre PA-C - Last Filed: 10/22/24 23:41>
[2024-10-22 21:06] LABS: Anion Gap 8 mmol/L (4-12); Blood Urea Nitrogen 8 mg/dL (7-17); Calcium 8.7 mg/dL (8.4-10.2); Carbon Dioxide 21 mmol/L (22-30); Chloride 95 mmol/L (98-107); Estimated CRCL calculation 88 ml/min; Estimated Glomerular Filt Rate > 60; Glucose 89 mg/dL (65-110); Potassium 4.3 mmol/L (3.4-5.0); Sodium 124 mmol/L (137-145)
[2024-10-22] MEDS: SODIUM CHLORIDE 0.9% IV 1,000 ML 999 ML IV CONT (21:29)
[2024-10-22 21:31] VITALS: BP 98/58; PULSE 65; RESP 17; O2SAT 98
[2024-10-22 22:07] VITALS: BP 115/68; PULSE 63; RESP 14; O2SAT 98
[2024-10-22 22:42] LABS: Anion Gap 6 mmol/L (4-12); Blood Urea Nitrogen 8 mg/dL (7-17); Calcium 8.2 mg/dL (8.4-10.2); Carbon Dioxide 22 mmol/L (22-30); Chloride 98 mmol/L (98-107); Estimated CRCL calculation 100 ml/min; Estimated Glomerular Filt Rate > 60; Glucose 124 mg/dL (65-110); Potassium 3.8 mmol/L (3.4-5.0); Sodium 126 mmol/L (137-145)
[2024-10-22 23:03] VITALS: BP 141/58; PULSE 67; RESP 16; O2SAT 100
[2024-10-22] MEDS: SODIUM CHLORIDE 0.9% IV 1,000 ML 125 ML IV CONT (23:54)
[2024-10-22 23:56] VITALS: BP 133/92; PULSE 65; RESP 18; O2SAT 99
[2024-10-23 00:31] VITALS: BMI 33.5
--- NOTE | 2024-10-23 00:42 | ADMGEN ---
This patient, Thom Zamora, was admitted to Medical Room 342-01. Patient/family oriented to hospital policies and general routines including ID bracelet, bed and alarms, visiting hours, pain management, procedures, bathroom and other care routines, personal items, smoking policy, room service/diet, and visiting hours. Information on how to activate the Rapid Response Team has been discussed. Patient/Family are encouraged to report perceived risks to care and to ask questions if they do not understand what they are told or what they should do.
[2024-10-23 00:55] VITALS: BP 138/85; PULSE 65; RESP 18; TEMP 36.6; O2SAT 100
[2024-10-23 05:50] LABS: Anion Gap 5 mmol/L (4-12); Blood Urea Nitrogen 7 mg/dL (7-17); Carbon Dioxide 22 mmol/L (22-30); Chloride 101 mmol/L (98-107); Estimated CRCL calculation 104 ml/min; Estimated Glomerular Filt Rate > 60; Glucose 92 mg/dL (65-110); Sodium 128 mmol/L (137-145)
[2024-10-23 06:00] VITALS: BP 126/71; PULSE 58; RESP 16; TEMP 36.6; O2SAT 99
--- NOTE | 2024-10-23 07:52 | P.HP_ITS ---
H&P: HPI History of Present Illness Date/Time: 10/23/24 07:52 Chief Complaint: UTI Narrative: Patient is a 48-year-old female with a past medical history of positive ESTHER, anxiety, asthma, depression, inflammatory arthropathy, seizures and to vitamin deficiency presented to ED due to UTI symptoms. Patient has a frequent urinary tract infection. And pertinent ED labs: WBC 5.9, hemoglobin 12.8, hematocrit 37.3, platelets 320, sodium 129, potassium 4, creatinine 0.5, GFR greater than 60. UA shows positive for nitrates, 1+ leukocyte esterase, WBC 11-20, bacteria 4+ Renal ultrasound shows unremarkable bilateral kidneys. No evidence of hydronephrosis or calculi Patient is admitted in the setting of UTI. Patient will be treated with ceftriaxone and pending urine culture. Previous urine culture reveals E coli. Patient has evidence of hyponatremia possibly due to chronic. No acute intervention is needed at this time. Will monitor the sodium. Patient currently have some social issues including housing. Possibly hygiene contributing to recurrent UTI. Patient denies any recent sexual activity. Review of Systems Review of Systems: CONSTITUTIONAL: Denies fever ENT: Reports congestion, otalgia. GASTROINTESTINAL: Denies abdominal pain, nausea, vomiting GENITOURINARY: Reports dysuria. Denies hematuria. All systems reviewed & are unremarkable except as noted in HPI and below PMFSH Past Medical History Medical History Vitamin D deficiency Inflammatory arthropathy ESTHER positive Anxiety Asthma Claustrophobia Seizures Depression Surgical History Surgical History History of tubal ligation History of History of hernia repair Family History Family History Mother Family history of mental disorder Father Family history of diabetes mellitus in first degree relative Family history of coronary artery disease Other Arthritis Asthma Cancer Depression Diabetes mellitus Heart disease High cholesterol Hypertension Social History Social History Smoking status: Former smoker Tobacco type: cigarettes Additional smoking assessment comments: cigarettes 1/2 ppd x 5 1/2 years Alcohol intake: never Substance use type: marijuana Other substance usage details: smoking and eatables daily Do You Feel Safe in your Home?: No Lack of Transportation: YES Lack of Food: Sometimes True Current Housing: I Do Not Have Housing Concerned About Future Housing: YES Difficulty Paying Gas/Electric Bills: YES Difficulty Paying for Meds: YES Currently Unemployed: No Education: Associate Degree Difficulty w/ Childcare or Family Care: No Living arrangements: with roommate(s) Gender identity (if verbalized by the patient): Female Spiritual care concerns: No Meds Home Medications and Allergies Home Medications ?Medication ?Instructions ?Recorded ?Confirmed ?Type albuterol sulfate 90 mcg/actuation 2 puff inhalation QID PRN 07/06/19 10/23/24 Rx aerosol inhaler shortness of breath or wheezing #6.7 grams carbamazepine 200 mg tablet 200 mg PO .COMPLEX #180 tabs 12/28/20 10/23/24 Rx clonazepam 1 mg tablet 1 mg PO BID #30 tabs 01/29/21 10/23/24 Rx olanzapine 10 mg tablet 10 mg PO DAILY 01/11/22 10/23/24 History gabapentin 300 mg capsule 300 mg PO Q12H 10/23/24 10/23/24 History oxybutynin chloride 10 mg 10 mg PO DAILY 10/23/24 10/23/24 History tablet,extended release 24 hr pantoprazole 40 mg tablet,delayed 40 mg PO DAILY 10/23/24 10/23/24 History release Allergies Allergy/AdvReac Type Severity Reaction Status Date / Time hydroxychloroquine Allergy Mild Agitated Verified 10/22/24 20:59 peanut Allergy Anaphylaxis Verified 10/22/24 20:59 Sulfa (Sulfonamide AdvReac Muscle Pain Verified 10/22/24 20:59 Antibiotics) Vital Signs Vital Signs - 24 hr 10/22/24 20:07 10/22/24 21:31 10/22/24 22:07 Temperature 97.8 F Pulse Rate 78 65 63 Respiratory Rate 16 17 14 Blood Pressure 122/82 98/58 L 115/68 Pulse Oximetry 98 98 98 Oxygen Delivery Room Air 10/22/24 23:03 10/22/24 23:56 10/23/24 00:55 Temperature 97.9 F Pulse Rate 67 65 65 Respiratory Rate 16 18 18 Blood Pressure 141/58 H 133/92 H 138/85 Pulse Oximetry 100 99 100 Oxygen Delivery 10/23/24 06:00 Temperature 97.8 F Pulse Rate 58 L Respiratory Rate 16 Blood Pressure 126/71 Pulse Oximetry 99 Oxygen Delivery Exam Narrative: GENERAL: Well-appearing, well-nourished, and in no acute distress. HEAD: Normocephalic, atraumatic. EYES: EOMI. ENT: Nares clear, no rhinorrhea or epistaxis. Mucous membranes moist. Oropharynx without tonsillar hypertrophy exudate or other lesions. Right TM pearly nance non-bulging. Left TM erythematous with effusion present NECK: Supple. No adenopathy or masses. No carotid bruits or JVD CHEST: Clear to auscultation. No respiratory distress. No wheezes rales or rhonchi HEART: Regular rate and rhythm. No murmur heard. Normal peripheral pulses. ABDOMEN: Soft, nontender, nondistended, normal active bowel sounds. EXTREMITIES: Normal range of motion. No edema. SKIN: Warm, dry, no rash. NEURO: No focal deficits. Alert and oriented x3. PSYCH: Normal mood and affect H&P: Results Labs Labs: Short CBC 10/22/24 Range/Units 20:36 WBC 5.9 (4.5-10.0) K/mm3 Hgb 12.8 (12.0-15.0) g/dL Hct 37.3 (37.0-47.0) % Plt Count 320 (150-375) k/mm3 BMP 10/22/24 10/22/24 10/23/24 20:36 22:18 05:08 Sodium 124 L 126 L 128 L Potassium 4.3 3.8 4.0 Chloride 95 L 98 101 Carbon Dioxide 21 L 22 22 BUN 8 D 8 7 Creatinine 0.61 L 0.53 L 0.52 L Glucose 89 124 H 92 Calcium 8.7 8.2 L 8.0 L Urine 10/22/24 Range/Units 20:25 Urine Color Dark yellow (Yellow) Urine Appearance Clear (Clear) Urine pH 6.0 (5.0-9.0) Ur Specific [place] 1.028 (1.001-1.035) Urine Protein Trace (Negative) mg/dL Urine Glucose (UA) Negative (Negative) mg/dL Assessment and Plan Assessment and plan (1) Acute UTI: Code(s): N39.0 - Urinary tract infection, site not specified Status: Acute Assessment and Plan: No evidence of obstructive nephrolithiasis If no improvement will perform CT scan abdomen/pelvis Reviewed UA Started on Rocephin Pending urine culture No evidence of pyelonephritis P.o. antibiotics once culture results Possibly hygiene contributing to recurrent UTI (2) Hyponatremia: Code(s): E87.1 - Hypo-osmolality and hyponatremia Status: Acute Assessment and Plan: HypoNa -Asymptomatic HypoNa -TSH pending -if necessary Cortisol will be measured -Possible due to SIADH and dehydration -patient started on fluids at 125 mL/hr from ED -Euvolemia -Goal 6-8 meq/l in 24 hr period -Urine Na pending -urine osmolarity pending Hospitalist MIPS Advance Care Plan I have confirmed that the patient's Advanced Care Plan is present, code status is documented, or surrogate decision maker is listed in patient medical record.: Yes Medication Reconciliation I have utilized all available resources to obtain, update and review the patients current medications (includes all prescriptions, OTC, herbals, cannabis, and nutritional supplements).: Yes
[2024-10-23 08:11] LABS: Hematocrit 35.1 % (37.0-47.0); Hemoglobin 11.8 g/dL (12.0-15.0); Mean Corpuscular HGB Conc 33.6 g/dl (32-36); Mean Corpuscular Hemoglobin 31.3 pg (26-34); Mean Corpuscular Volume 93.1 fl (80-100); Mean Platelet Volume 8.9 fl (7.4-10.4); Platelet Count Result 298 k/mm3 (150-375); Red Blood Count 3.77 M/mm3 (4.2-5.4); Red Cell Distribution Width 12.8 % (11.5-14.5); White Blood Count 5.3 K/mm3 (4.5-10.0)
[2024-10-23 08:19] LABS: Alanine Aminotransferase 13 U/L (6-35); Albumin Level 3.2 g/dL (3.5-5.1); Alkaline Phosphatase 103 U/L (38-126); Aspartate Amino Transferase 19 U/L (14-36); Bilirubin,Total 0.2 mg/dL (0.2-1.3); Total Protein 5.8 g/dL (6.3-8.2)
[2024-10-23] MEDS: SODIUM CHLORIDE 0.9% IV 1,000 ML 125 ML IV CONT ×2 (09:15→18:04)
[2024-10-23] MEDS: clonazePAM (*CRX) 0.5 MG TABLET 1 MG PO ×2 (09:16→21:20)
[2024-10-23] MEDS: PANTOPRAZOLE 40 MG TABLET PO (09:16)
[2024-10-23] MEDS: GABAPENTIN 300 MG CAPSULE PO ×2 (09:17→21:20)
[2024-10-23] MEDS: oxyBUTYnin CHLORIDE XL 5 MG TAB.ER.24 10 MG PO ×2 (09:17→21:20)
[2024-10-23] MEDS: carBAMazepine 200 MG TABLET 600 MG PO ×2 (09:17→21:19)
[2024-10-23] MEDS: ENOXAPARIN 40 MG/0.4 ML SYRINGE SUB-Q (09:20)
[2024-10-23 15:30] VITALS: BP 127/69; PULSE 56; RESP 18; TEMP 36.4; O2SAT 100
[2024-10-23 20:25] LABS: Sodium Urine Random 97 meq/L
[2024-10-23 20:37] VITALS: BP 135/81; PULSE 62; RESP 18; TEMP 37.1; O2SAT 99
[2024-10-23] MEDS: OLANZapine 5 MG TABLET 10 MG PO (21:20)
[2024-10-24 05:15] VITALS: BP 118/71; PULSE 55; RESP 16; TEMP 36.5; O2SAT 96
[2024-10-24] MEDS: SODIUM CHLORIDE 0.9% IV 1,000 ML 125 ML IV CONT ×2 (05:23→12:31)
[2024-10-24 05:34] LABS: Hematocrit 36.1 % (37.0-47.0); Mean Corpuscular HGB Conc 33.2 g/dl (32-36); Mean Corpuscular Volume 93.3 fl (80-100); Mean Platelet Volume 8.3 fl (7.4-10.4); Platelet Count Result 282 k/mm3 (150-375); Red Blood Count 3.87 M/mm3 (4.2-5.4); Red Cell Distribution Width 12.7 % (11.5-14.5)
[2024-10-24 05:53] LABS: Alanine Aminotransferase 14 U/L (6-35); Albumin Level 3.5 g/dL (3.5-5.1); Alkaline Phosphatase 112 U/L (38-126); Anion Gap 4 mmol/L (4-12); Aspartate Amino Transferase 20 U/L (14-36); Bilirubin,Total 0.1 mg/dL (0.2-1.3); Blood Urea Nitrogen 7 mg/dL (7-17); Calcium 8.4 mg/dL (8.4-10.2); Carbon Dioxide 22 mmol/L (22-30); Chloride 103 mmol/L (98-107); Estimated CRCL calculation 101 ml/min; Estimated Glomerular Filt Rate > 60; Glucose 90 mg/dL (65-110); Potassium 4.1 mmol/L (3.4-5.0); Sodium 129 mmol/L (137-145)
[2024-10-24] MEDS: GABAPENTIN 300 MG CAPSULE PO (09:06)
[2024-10-24] MEDS: PANTOPRAZOLE 40 MG TABLET PO (09:06)
[2024-10-24] MEDS: clonazePAM (*CRX) 0.5 MG TABLET 1 MG PO (09:06)
[2024-10-24] MEDS: carBAMazepine 200 MG TABLET 600 MG PO (09:06)
[2024-10-24] MEDS: ENOXAPARIN 40 MG/0.4 ML SYRINGE SUB-Q (09:07)
[2024-10-24 14:17] VITALS: BP 119/78; PULSE 52; RESP 18; TEMP 36.5; O2SAT 96
--- NOTE | 2024-10-24 14:50 | P.DS_ITS ---
DS: Admitting Diagnosis Discharge Date 10/24/2024 Admitting Diagnosis UTI DS: Discharge Diagnosis Discharge Diagnosis (1) Acute UTI: Code(s): N39.0 - Urinary tract infection, site not specified Status: Acute Assessment and Plan: PLEASE REFER TO HOSPITAL COURSE FOR BRIEF SUMMARY No evidence of obstructive nephrolithiasis If no improvement will perform CT scan abdomen/pelvis Reviewed UA Started on Rocephin Pending urine culture No evidence of pyelonephritis P.o. 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 Patient has a frequent urinary tract infection. And pertinent ED labs: WBC 5.9, hemoglobin 12.8, hematocrit 37.3, platelets 320, sodium 129, potassium 4, creatinine 0.5, GFR greater than 60. UA shows positive for nitrates, 1+ leukocyte esterase, WBC 11-20, bacteria 4+ Renal ultrasound shows unremarkable bilateral kidneys. No evidence of hydronephrosis or calculi Patient is admitted in the setting of UTI. Patient will be treated with ceftriaxone and pending urine culture. Previous urine culture reveals E coli. Patient has evidence of hyponatremia possibly due to chronic. No acute intervention is needed at this time. Will monitor the sodium. Patient currently have some social issues including housing. Possibly hygiene contributing to recurrent UTI. Patient denies any recent sexual activity. Patient had totally the 3 episodes of UTI within the past year which qualifies for chronic/recurrent UTI. Urine culture has been reviewed and patient will be discharged with Keflex. Patient needs to follow-up with the primary care physician for long-term course of antibiotic Patient reports that she will be going to [facility] and she has the help for further housing condition. On the day of discharge, the patient was seen and examined. Vital signs were stable. Physical exam were stable and labs were reviewed at length. Discharge instructions, medications, and follow-up appointments were discussed with the patient at length and all day questions were answered. ER warnings were given. Status at Discharge Cognitive/behavioral status at discharge: Stable Time Spent with Patient Time attestation: Total time spent providing and/or coordinating discharge services: 45 minutes Exam Narrative: GENERAL: Well-appearing, well-nourished, and in no acute distress. HEAD: Normocephalic, atraumatic. EYES: EOMI. ENT: Nares clear, no rhinorrhea or epistaxis. Mucous membranes moist. Oropharynx without tonsillar hypertrophy exudate or other lesions. Right TM pearly nance non-bulging. Left TM erythematous with effusion present NECK: Supple. No adenopathy or masses. No carotid bruits or JVD CHEST: Clear to auscultation. No respiratory distress. No wheezes rales or rhonchi HEART: Regular rate and rhythm. No murmur heard. Normal peripheral pulses. ABDOMEN: Soft, nontender, nondistended, normal active bowel sounds. EXTREMITIES: Normal range of motion. No edema. SKIN: Warm, dry, no rash. NEURO: No focal deficits. Alert and oriented x3. PSYCH: Normal mood and affect DS: Data Data Completed and Pending Labs on day of discharge: Labs from last 24 hours 10/24/24 10/23/24 05:13 20:12 WBC 6.0 RBC 3.87 L Hgb 12.0 Hct 36.1 L MCV 93.3 MCH 31.0 MCHC 33.2 RDW 12.7 Plt Count 282 MPV 8.3 Sodium 129 L Potassium 4.1 Chloride 103 Carbon Dioxide 22 Anion Gap 4 BUN 7 Creatinine 0.54 L Estim Creat Clear Calc 101 Estimated GFR > 60 Glucose 90 Calcium 8.4 Total Bilirubin 0.1 L AST 20 ALT 14 Alkaline Phosphatase 112 Total Protein 6.0 L Albumin 3.5 Urine Osmolality Pending Ur Random Sodium 97 Discharge Plan Discharge Attending physician on discharge: Emile Doe Discharging Clinician: Emile Doe Patient Disposition: Home Activity: as tolerated Diet: regular Discharge Instructions: Please discuss with your PCP for long-term antibiotic course for UTI Patient Instructions: Antibiotic Form Patient Language: Macedonian Stand Alone Forms: General Discharge Information Follow-up/Referrals: Arielle,PARKER Simmons [Primary Care Provider] - (Patient leads a long- term course of antibiotic due to recurrent UTI. Patient has 3 episodes of UTI within last year.) Discharge Medications: New cephalexin 500 mg Capsule 500 mg PO Q12HR Qty: 30 0RF Saccharomyces boulardii [Daily Probiotic (S. boulardii)] 250 mg capsule 250 mg PO BID Qty: 30 0RF Continued olanzapine 10 mg tablet 10 mg PO DAILY Patient Comments: per patient med list albuterol sulfate 90 mcg/actuation HFA aerosol inhaler 2 puff INHALATION QID PRN (Reason: shortness of breath or wheezing) Qty: 6.7 0RF oxybutynin chloride 10 mg tablet extended release 24hr 10 mg PO DAILY pantoprazole 40 mg tablet,delayed release (DR/EC) 40 mg PO DAILY gabapentin 300 mg capsule 300 mg PO Q12H carbamazepine 200 mg tablet 200 mg PO .COMPLEX Qty: 180 0RF Rx Instructions: 200 mg PO 3 tabs by mouth every 12hrs; clonazepam 1 mg tablet 1 mg PO BID Qty: 30 0RF Date of admission: 10/22/24 23:35 Primary Care Provider: Arielle,Iris Admitting Provider: Emile Doe Attending physician on admission: Emile Doe Condition: Stable
[2024-10-25 15:53] LABS: Osmolality, Urine 362 mOsm/kg (50-1200)
== END 2024-10-24 20:00 | disposition home or self-care (01) ==
LOC: ANHED 23:40 → ANH3MED 10-23 00:10
PROVIDERS: Student in an Organized Health Care Education/Training Program; Admitting Provider General Practice; Emergency Provider Physician Assistant; PCP Nurse Practitioner Family; Visit Provider General Practice
DX: N39.0 Urinary tract infection, site not specified (principal); E87.1 Hypo-osmolality and hyponatremia; J45.909 Unspecified asthma, uncomplicated; H66.90 Otitis media, unspecified, unspecified ear; F41.9 Anxiety disorder, unspecified; F32.A Depression, unspecified; M12.9 Arthropathy, unspecified; Z79.51 Long term (current) use of inhaled steroids; Z87.891 Personal history of nicotine dependence; Z87.440 Personal history of urinary (tract) infections; Z98.51 Tubal ligation status
CPT/HCPCS: 36415; 76775; 80048; 80053; 80076; 81001; 83935; 84300; 84443; 85025; 85027; 87086; 87186; 96361; 96365; 96372; 99285; A9270; G0378; G0379; J0696; J1650; J7030

== ENCOUNTER 2024-11-21 14:42 | Inpatient (IN) | payer OTHER, SELFPAY ==
--- NOTE | ~2024-11-21 | XR_ITS ---
EXAMINATION: XR chest 2V 11/22/2024 11:43 INDICATION: Shortness of breath and asthma PROCEDURE: 2 view chest COMPARISON: 12/19/2021 FINDINGS: The lungs are clear. The cardiomediastinal silhouette is within normal limits. There are no pleural effusions. There is no pneumothorax suspected. IMPRESSION: 1: NO ACUTE CARDIOPULMONARY DISEASE. Reviewed, dictated and finalized at location B.
--- NOTE | ~2024-11-21 | CT_ITS ---
EXAMINATION: CT abdomen pelvis w con DATE: 11/21/2024 18:53 INDICATION: lower abdominal pain TECHNIQUE: Computed tomography (CT) of the abdomen and pelvis was performed with 100 mL Omnipaque-350 intravenous contrast. Automated exposure control and iterative reconstruction technique were employe d. The dose-length product was 584.99 mGy-cm. COMPARISON: 02/20/2024. FINDINGS: Lower thorax: Bilateral dependent scar/atelectasis. Left lower lobe calcified granuloma. Minimal jaime nary artery calcification. Liver: Normal. Biliary/Gallbladder: Gallbladder is normal. No bile duct dilation. Pancreas: No mass or duct dilation. Spleen: Normal. Adrenals:No mass. Kidneys: No suspicious mass, obstructing stone, or hydronephrosis. Multiple subcentimeter left renal hypodensities, too small to characterize but most likely represent cysts. GI tract: Mild distal esophageal and gastric wall edema. No small or large bowel dilation. Normal laila endix. Mesentery/Peritoneum: No ascites, mass, or free air. Retroperitoneum: No mass. Atherosclerotic calcifications of intra-abdominal arterial vessels. Pelvis: Distended urinary bladder with mild wall thickening. Normal bilateral ovaries. Soft Tissues: Small uncomplicated fat-containing umbilical and right inguinal hernias. Bones: No acute osseous finding. IMPRESSION: Mild esophagitis/gastritis. Mild urinary bladder wall thickening, as can be seen with cystitis. Reviewed, dictated and finalized at location K.
--- NOTE | ~2024-11-21 | CT_ITS ---
EXAMINATION: CT brain wo con DATE: 11/21/2024 20:07 INDICATION: dizziness . TECHNIQUE: Computed tomography (CT) of the head was performed without intravenous contrast. The mA wa s adjusted according to patient size. Iterative reconstruction technique was employed. The dose-lengt h product was 681.00 mGy-cm. COMPARISON: 07/11/2018; MR brain 04/18/2019 and 02/11/2021. FINDINGS: No acute intracranial hemorrhage or extra-axial fluid collection. No hydrocephalus, mass, or herniation. No acute ischemic infarct. Unremarkable dural venous sinus attenuation. No acute osseous abnormality. Possible old left orbital floor fracture. Trace left mastoid fluid. Pansinus mucosal thickening. Aerated secretions in the sphenoid sinus. Redemonstration of the small right perihippocampal fissure cyst, unchanged. IMPRESSION: No acute intracranial process. CT findings may suggest the presence of acute sinusitis in the appropriate clinical context. Reviewed, dictated and finalized at location K. IMPRESSION: No acute intracranial process. CT findings may suggest the presence of acute sinusitis in the appropriate clin ical context.
[2024-11-21 14:47] VITALS: BP 123/90; PULSE 72; RESP 18; TEMP 36.4; O2SAT 98
--- OUTSIDE RECORDS SUMMARY | 2024-11-21 14:48 | XMS_ITS | Clinical Summary ---
Author Organization [facility] al Address [address] [place] [address] Care Team Providers Care Wrapper Sorter Name Role Phone Unknown, Notinfile Primary Care [...] (PYRIDIUM) 100 mg tablet every 8 hours 024 Active oxyBUTYnin XL (DITROPAN-XL) 10 mg 24 hr tablet TAKE 1 TABLET BY MOUTH EVERY DAY IN THE MORNING FOR URINARY INCONTINENCE Active omeprazole (PriLOSEC) 40 mg capsule TAKE 1 CAPSULE BY MOUTH EVERY DAY FOR ABDOMINAL PAIN 024 Active guaiFENesin (ROBITUSSIN) 200 mg tablet every [...] MOUTH EVERY NIGHT 30 capsule 1 025 2024 Discontinued Active Problems Problem Noted Date Diagnosed Date Seizure disorder 09/06/2016 Bronchial asthma 09/06/2016 Intrauterine contraceptive device threads lost 0 09/06/2016 Anaclitic depression 09/06/2016 Anxiety 09/06/2016 Bipolar I disorder, most recent episode depresse d 03/22/2016 Benign essential hypertension 05/09/2006 Immunizations Immunization Administration Dates Next Due Influenza, Trivalent, Preservative Free, Intramu scular 03/18/2008 Surgical History Surgery Date Site/Laterality Comments ID DELIVERY ONLY Section - (Added by TW [...] on file Legal Sex Female 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 Gender Identity Not on file Sexual Orientation Not on file Obstetrics History Last Filed Vital Signs Vital Sign Reading Time Taken Comments Blood Pressure 120/60 02/29/2024 2:57 PM CDT Pulse 85 02/29/2024 2:57 PM CDT Temperature 36.6 C (97.8 F) 07/08/2022 11:38 AM DEFENCE [employer] SENIOR OFFICER Respiratory Rate 20 02/29/2024 2:57 PM [...] Vaccine (1 of 2) 1992 Influenza Vaccine (#1) 2025 9, 02/26/2018, 03/18/2008 Hepatitis C Screening Completed 07/05/2016 Procedures Procedure Name Priority Date/Time Associated Diagnosis Comments SERUM HEPATITIS C AB Routine 07/05/2016 4:53 AM DEFENCE FORCE SENIOR OFFICER from Last 3 Months or Most Recently Relevant to Health Maintenance Results * Serum Hepatitis C ab (07/05/2016 4:53 AM DEFENCE FORCE SENIOR OFFICER) HCV ab Nonreactive CDR HIST ORICAL RESULTS Serum 07/05/2016 4:53 AM DEFENCE [employer] SENIOR OFFICER Narrative CDR HISTORICAL RESULTS - 07/06/2016 4:20 AM DEFENCE [employer] SENIOR OFFICER Interpretive Data Positive results should be confirmed by a molecular method. If positive, a second separately collected sample should be submitted for Hepatitis C Virus (HCV) RNA Detection and Quantitation by Real-Time Reverse Bath Attendant-PCR (RT-PCR). Current interpretive data was last revised on 2016. Moisés Mendieta MD LAB BLOOD ORDERABLES Fi nal Result CDR HISTORICAL RESULTS from Last 3 Months or Most Recently Relevant to Health Maintenance Insurance [facility] Care Teams Wrapper Sorter Relationship Specialty Start Date End Date Unknown, Notinfile PCP - General 04/23/24
--- OUTSIDE RECORDS SUMMARY | 2024-11-21 14:48 | XMS_ITS | Referral Summary ---
Author Organization [facility] al Address [address] [place] [address] Care Team Providers Care Concrete Gun Operator Name Role Phone Unknown, Notinfile Primary [...] on file Legal Sex Female 3:40 PM SAMPLE PROCESSOR Gender Identity Not on file Sexual Orientation Not on file Last Filed Vital Signs Vital Sign Reading Time Taken Comments Blood Pressure 120/60 02/29/2024 2:57 PM CDT Pulse 85 02/29/2024 2:57 PM CDT Temperature 36.6 C (97.8 F) 07/08/2022 11:38 AM SAMPLE PROCESSOR Respiratory Rate 20 02/29/2024 2:57 PM CDT [...] HEPATITIS C AB Routine 07/05/2016 4:53 AM SAMPLE PROCESSOR from Last 3 Months or Most Recently Relevant to Health Maintenance Results * Serum Hepatitis C ab (07/05/2016 4:53 AM SAMPLE PROCESSOR) HCV ab Nonreactive CDR HIST ORICAL RESULTS Serum 07/05/2016 4:53 AM SAMPLE PROCESSOR Narrative CDR HISTORICAL RESULTS - 07/06/2016 4:20 AM SAMPLE PROCESSOR Interpretive Data Positive results should be confirmed by a molecular method. If positive, a second separately collected sample should be submitted for Hepatitis C Virus (HCV) RNA Detection and Quantitation by Real-Time Reverse Casework Manager-PCR (RT-PCR). Current interpretive data was last revised on 2016. Moisés Mendieta MD LAB BLOOD ORDERABLES Fi nal Result CDR HISTORICAL RESULTS from Last 3 Months or Most Recently Relevant to Health Maintenance [place] [address] [place] [address] [facility] Care Teams Concrete Gun Operator Relationship Specialty Start Date End Date Unknown, Notinfile PCP - General 04/23/24
--- OUTSIDE RECORDS SUMMARY | 2024-11-21 14:49 | XMS_ITS | Data Portability ---
Author Organization [facility] Address [address] [place] [address] Care Team Providers Care Hotel Lobby Concierge Name Role Phone [facility] Primary Care Provider Assessment Encounter Date Assessment [...] . Lab dhea-sul fate, serum 2022 023 [facility] (Lab), [address] [place], [address], 3 16:18:14 hormone panel, serum or plasma 2022 023 [facility] (Lab), [address] [place], [address], 3 16:18:14 progeste trice, serum 2022 023 [facility] (Lab), [address] [place], [address], 3 16:18:14 prolacti n, serum 2022 023 [facility] (Lab), [address] [facility], [place], [address], 3 16:18:14 shbg (sex hormone- binding globulin ), serum 2022 023 [facility] (Lab), [address] [facility], [place], [address], 3 16:18:15 TSH, serum or plasma 2022 023 [facility] (Lab), [address] [facility], [place], [address], 3 16:18:15 testoste trice free/glenn tosteron e total, ratio, serum 2022 023 [facility] (Lab), [address] [facility], [place], [address], 3 16:18:15 hormone panel, serum or plasma 2020 021 [facility] (Lab), [address] [facility], [place], [address], 1 03:48:38 Referral None recorded . Procedures None recorded . Surgeries None recorded . Imaging US, pelvis, complete 2022 023 [facility], [address], [place], [address], 3 16:16:25 US, transvag inal 2021 022 theo Toth MD, [address], [place], [address], 2 15:31:14 Medication Orders estradio l 1 mg tablet 2021 022 [facility] #96648, [address], [place], [place], [id number], 3 12:57:56 Prometri um 100 mg capsule 2021 022 [facility] #71763, [address], [place], [id number], 3 12:59:06 estradio l 1 mg tablet 2020 [facility] #01779, [address], [place], [id number], 3 12:57:56 Prometri um 100 mg capsule 2020 [facility] #68215, [address], [place], [id number], 3 12:59:06 Metrogel Vaginal 0.75 % (37.5 mg/5 gram) 2020 [facility] #97181, [address], [place], [id number], 3 12:58:31 Patient TargetsNo targets recorded. Patient [...] OSIS: Negat josafat for Intra epith elial Warren n or Gabo mckeon (NIL) . Shift in tone sugge stive of bacte rial vagin osis. Elect zoe michaud d by Kelly Worley , CT on 02/19 at 2:38 PM ----- ----- [...] is recom barbara d, as clini thomas warra nted. Not Available [facility] (Lab) [address], [place], [address], 02/19/2021 15:41:15 03/18/20 21 03/18/2021 FSH, LH, ESTRA DIOL estradiol 105.0 pg/mL This assay was perfo rmed using [employer] ratio n reage nts and test kits. Value s obtai alexis with other assay metho ds or kits canno t be used [facility] . Femal e Estra diol Range s: Folli cular phase 12.4- 233 pg/mL Ovula tion phase 41.0- 398 pg/mL Lutea l phase 22.3- 341 pg/mL Postm enopa usal< 5-138 pg/mL Healt hy Pregn ant Women 1st Trime ster1 54-32 43 pg/mL 2nd Trime ster1 561-2 1280 pg/mL 3rd Trime ster8 525-> 94376 pg/mL Not Available [facility] (Lab) [address], [place], [address], 03/19/2021 03:48:38 03/18/20 21 03/18/2021 FSH, LH, ESTRA DIOL FSH 5.0 mIU/m L This assay was perfo rmed using [employer] reage nts and test kits. Value s obtai alexis with other assay metho ds or kits canno t be used [facility] . Femal es Folli cular : 3.5-1 2.5 mIU/m L Ovula tion: 4.7-2 1.5 mIU/m L Lutea l: 1.7-7 .7 mIU/m L Postm enopa use: 25.8- 134.8 mIU/m L Not Available [facility] (Lab) [address] [facility], [place], [address], 03/19/2021 03:48:38 03/18/20 21 03/18/2021 FSH, LH, [...] [facility] (Lab) [address] , [place], [address], 03/19/2021 03:48:38 Result Notes None recorded. Procedures Surgical History Date Name Laterality Status Provider Name and Address Organization Details Recorded Time 07/06/18 90 Dilation and Curettage completed [facility] 02/15/2021 16:01:59 02/05/19 74 hernia repair completed [facility] 02/15/2021 16:01:45 Caesarean Section completed [facility] 02/15/2021 15:51:15 total excision of bilateral fallopian tubes completed [facility] 02/15/2021 16:01:31 Hysteroscopy completed [facility] 02/15/2021 16:02:20 Dilation and Curettage completed [facility] 04/05/2021 11:36:28 Imaging Results None recorded. Procedure Notes None recorded. Medical Equipment None Reported. Allergies Allergen ID Allergen Name Allergen Category Reaction Reaction Severity Criticality Documentation Date Start Date Code Code System Note Provider Name and Address Organization Details Recorded Time 71843 cat dander environme nt Not available Not available Not available 04/05/2021 [address] [facility], [facility] 1 11:36:42 80945 peanut allergeni c extract food,medi cation Not available Not available Not available 06/14/2022 49616 8 RxNorm Maddy Cervantes, [facility] [address], [place], [address] , [facility] 3 14:03:35 Medications Name Sig Start [...] Body mass index (BMI) Body weight Systolic And Diastolic Provider Name and Address Organization Details Last Updated DateTime 06/14/2022 154.94 cm 30.2 kg/m2 67510.78 g 100/65 mm[Hg] Brielle Briceno [facility] 06/14/2022 12:56:41 Date Recorded Body height Body mass index (BMI) Body weight Systolic And Diastolic Provider Name and Address Organization Details Last Updated DateTime 06/16/2021 154.94 cm 32.5 kg/m2 86331.89 g 106/70 mm[Hg] [facility] 06/16/2021 12:51:02 Date Recorded Body height Body mass index (BMI) Body weight Systolic And Diastolic Provider Name and Address Organization Details Last Updated DateTime 02/15/2021 154.94 cm 32.1 kg/m2 08690.7 g 132/77 mm[Hg] [facility] 02/15/2021 15:50:57 Date Recorded Body height Body mass index (BMI) Body weight Systolic And Diastolic Provider Name and Address Organization Details Last Updated DateTime 04/05/2021 154.94 cm 32.9 kg/m2 77763.07 g 135/82 mm[Hg] [facility] 04/05/2021 11:36:20 Social History Question Answer Notes LastModified by Organizat ion Details LastModified Time Tobacco Smoking Status Former Smoker Denny Gamino [facility] 06/16/2021 12:37:01 Do You [...] Or The Highest Degree You Have Received? 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 No Information not available 06/14/2022 What is your exercise level? Occasional Information not available 02/15/2021 Mental Status Question Answer Note LastModified by Organization D etails LastModified Time Do you feel stressed (tense, restless, nervous, or anxious, or unable to sleep at night)? [id number] Information not available 02/15/2021 Family History Relationship [...] SNOMED-CT Code Diagnosis ICD10 Code Diagnosis Note [id number] Filemon Toth MD [facility] [address] [address] 02/15/2021 15:28:39 02/15/2021 16:20:22 Gynecologic examination 00007025 Z01.419 This patient is here for her [...] [done ] Pap - today Menopausal symptom 95616 002 N95.1 rtc 1 month - irregular bleeding and menopausal symptoms. Hot flashes, vaginal dryness, irregular bleeding, night sweats, to follow-up in 1 month. She uses prescribed estradiol and Prometrium . Bacterial vaginosis 4197 74732 N76.0 [id number] Filemon Toth MD [facility] [address] [address] 04/05/2021 11:20:47 04/06/2021 10:33:44 Mucous retention cyst of cervix uteri 678529981 N88.8 this patient is a 45-year-ol d female who presents for the incision and drainage of cervical lesion. Speculums placed in the vagina. The cervix cleaned with Betadine. The nabothian cyst was injected with lidocaine. A scalpel used to make incision on the cyst. The cyst was drained. Monsel's was applied. The patient tolerated procedure well. She will follow up as needed. [id number] Filemon Toth MD [facility] [address] [address] 06/16/2021 12:36:52 06/16/2021 13:13:12 Abnormal uterine bleeding [id number] 9100 N93.9 Menopausal symptom 66491 002 N95.1 this patient is a 45-year-ol [...] ce. We discussed these 2 complex issues. [id number] BOB Mejia [facility] [address] [address] 06/14/2022 12:21:51 06/14/2022 14:36:28 Urinary symptoms [id number] R39.9 UA today WNL, cx sentDecrea se [...] plan of care. Abnormal u terine bleeding 6187962677 9100 N93.9 Vaginal discharge 920638 006 N89.8 Dysmenorrhea 666489611 N 94.6 Venereal d isease screening 616795678 Z11.3 Health Concerns Section Related Observation LastModified by Organization Detai ls LastModified Time None Recorded Concern Status LastModified by Organization Details LastModified Time None Recorded Advance Directives Directive N: Payers Insurance Date Sequence Insurance Name Policy Number Policy Lowe Covered Member ID Lowe Member ID Guarantor Name 06/13/2022 1 [facility] PRIOR TO 11/05/2020 (MEDICAID REPLACEMENT - HMO) [id number] Thom Zamora [id number] Thom Zamora 06/19/2022 1 [facility] ON OR AFTER 11/05/20 (MEDICAID REPLACEMENT - HMO) Thom Zamora [id number] Thom Zamora Notes Date Note Type Note [...] sweats Psychological symptoms:Depression;An xiety; untreated - sees Rogers Preventive measures:Encourage self breast examination; Encourage regular exercise Filemon Toth MD [address], [place], [address], [facility] 02/15/2021 16:18:10 1 text/html this patient [...] needed. Filemon Toth MD [address], [place], [address], [facility] 04/05/2021 21:49:02 2 text/html this patient [...] issue. We spent more than 15 minutes dsps-kg-olfc. We discussed these 2 complex issues. Filemon Toth MD [address], [place], [address], [facility] 06/16/2021 13:11:13 3 text/html 46yo [id number] for evaluation of vaginal discharge. Discharge comes [...] 1 year BOB Mejia [address], [place], [address], [facility] 06/14/2022 14:19:36 OBGyn Episode Ob Episode Information Episode Created Date Number of Fetuses Patient Bloodtype Patient rh Status Prepregnancy Weight lbs Domestic Partner Domestic Partner Phone Father Name Picture Enlarger Status 02/16/20 21 1 CLOSED Fetus Data First Name Last Name Admitted to NICU Weight (g) Sex Living Outcome Pediatric Complications Fetus ID Race Codes Race Delivery Type , Spontane ous 99226 Jose Calculation Initial Jose Date Initial Exam [...] Domestic Partner Domestic Partner Phone Father Name Picture Enlarger Status 02/16/20 21 1 CLOSED Fetus Data First Name Last Name Admitted to NICU Weight (g) Sex Living Outcome Pediatric Complications Fetus ID Race Codes Race Delivery Type , Induced 05324 Jose Calculation Initial Jose Date Initial Exam [...] Domestic Partner Domestic Partner Phone Father Name Picture Enlarger Status 02/16/20 21 1 CLOSED Fetus Data First Name Last Name Admitted to NICU Weight (g) Sex Living Outcome Pediatric Complications Fetus ID Race Codes Race Delivery Type F Full Term 30869 Repeat Jose Calculation Initial Jose Date Initial [...] Domestic Partner Domestic Partner Phone Father Name Picture Enlarger Status 02/16/20 21 1 CLOSED Fetus Data First Name Last Name Admitted to NICU Weight (g) Sex Living Outcome Pediatric Complications Fetus ID Race Codes Race Delivery Type , Induced 06523 Jose Calculation Initial Jose Date Initial Exam [...] Domestic Partner Domestic Partner Phone Father Name Picture Enlarger Status 02/16/20 21 1 CLOSED Fetus Data First Name Last Name Admitted to NICU Weight (g) Sex Living Outcome Pediatric Complications Fetus ID Race Codes Race Delivery Type M Full Term 70044 Primary Jose Calculation Initial Jose Date Initial [...] Post Complications Tubal Sterilization Discharge Date Comments 199 8 40 Discharge Information Feeding Method Contraceptive Method Maternal HG B and HCT Levels
--- OUTSIDE RECORDS SUMMARY | 2024-11-21 14:49 | XMS_ITS | Patient Health Record ---
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 dyskinesia (ICD-10 - G24.01) 11/20/2024 Post traumatic stress disorder (PTSD) (ICD-10 - F43.10) 11/19/2024 Major depression (ICD-10 - F32.9) 10/21/2024 Post traumatic stress disorder (PTSD) (ICD-10 [...] and a host of perceptual changes. 09/17/2024 Tardive dyskinesia (ICD-10 - G24.01) 09/03/2024 Colon cancer screening (ICD-10 - Z12.11) 08/08/2024 Post traumatic stress disorder (PTSD) (ICD-10 [...] traumatic stress disorder (PTSD) (ICD-10 - F43.10) 07/08/2024 Post traumatic stress disorder (PTSD) (ICD-10 [...] changes. 07/01/2024 Major depression (ICD-10 - F32.9) 05/20/2024 Nutritional counseling (ICD-10 - Z71.3) 05/02/2024 Nutritional counseling (ICD-10 - Z71.3) 04/25/2024 Post traumatic stress disorder (PTSD) (ICD-10 [...] Exposure to potential infection (ICD-10 - Z20.9) 03/18/2024 Post traumatic stress disorder (PTSD) (ICD-10 [...] - N39.0) will request records from Urologist 02/08/2024 Post traumatic stress disorder (PTSD) (ICD-10 [...] changes. 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 11/27/2023 Post traumatic stress disorder (PTSD) (ICD-10 - F43.10) 12/06/2023 Medication monitoring encounter (ICD-10 - Z51.81) Discussed results- PDMP confirms client has been out of medication for around one week. 01/15/2024 Screening for metabolic disorder (ICD-10 - Z13.228) 01/15/2024 Vaginal discharge (ICD-10 - N89.8) 02/09/2024 UTI (urinary tract infection) (ICD-10 - N39.0) 02/08/2024 Medication monitoring encounter (ICD-10 - Z51.81) 04/08/2024 Screening for cervical cancer (ICD-10 - Z12.4) 02/09/2024 Seasonal allergic rhinitis, unspecified trigger (ICD-10 - J30.2) 03/18/2024 Medication monitoring encounter (ICD-10 - Z51.81) 04/25/2024 Medication monitoring encounter (ICD-10 - Z51.81) 05/02/2024 Nicotine dependence, unspecified, uncomplicated (ICD-10 - F17.200) 05/20/2024 UTI (urinary tract infection) (ICD-10 - N39.0) 07/01/2024 Post traumatic stress disorder (PTSD) (ICD-10 - F43.10) 07/08/2024 Medication monitoring encounter (ICD-10 - Z51.81) 08/08/2024 Medication monitoring encounter (ICD-10 - Z51.81) 09/03/2024 UTI symptoms (ICD-10 - R39.9) 10/21/2024 Medication monitoring encounter (ICD-10 - Z51.81) 11/19/2024 Post traumatic stress disorder (PTSD) (ICD-10 - F43.10) 10/21/2024 Nutritional counseling (ICD-10 - Z71.3) 07/08/2024 Nutritional counseling (ICD-10 - Z71.3) 08/08/2024 Nutritional counseling (ICD-10 - Z71.3) 09/03/2024 Sinusitis (ICD-10 - J32.9) 04/25/2024 Tardive dyskinesia (ICD-10 - G24.01) Client reports improvement in abnormal movements with increase in dose to 12mg BID (24mg) but has increase in anxiety. Changing forms to XR for client to take at night to aid with SE profile. Client v/u. 04/25/2024 Nutritional counseling (ICD-10 - Z71.3) 03/18/2024 Nutritional counseling (ICD-10 - Z71.3) 02/09/2024 Osteoarthritis (ICD-10 - M19.90) 01/15/2024 Screening for thyroid disorder (ICD-10 - Z13.29) 01/15/2024 Screening for thyroid disorder (ICD-10 - Z13.29) 01/15/2024 Screening for diabetes mellitus (ICD-10 - Z13.1) 01/15/2024 Screening for hyperlipidemia (ICD-10 - Z13.220) 02/09/2024 Contact dermatitis (ICD-10 - L25.9) 07/08/2024 Tardive dyskinesia (ICD-10 - G24.01) Continue, takes in the morning, reports internal restlessness, increase dose. 08/08/2024 Tardive dyskinesia (ICD-10 - G24.01) Continue, takes in the morning, reports internal restlessness, increase dose. 10/21/2024 Tardive dyskinesia (ICD-10 - G24.01) Continue, takes in the morning, reports internal restlessness, increase dose. 01/15/2024 Screening for metabolic disorder (ICD-10 - Z13.228) 01/15/2024 Screening for deficiency anemia (ICD-10 - Z13.0) 01/15/2024 Exposure to potential infection (ICD-10 - Z20.9) 01/15/2024 UTI symptoms (ICD-10 - R39.9) 01/15/2024 Screening for diabetes mellitus (ICD-10 - Z13.1) 01/15/2024 Vaginal discharge (ICD-10 - N89.8) 01/15/2024 Screening for deficiency anemia (ICD-10 - Z13.0) 01/15/2024 Other Learning About the Safe Use [...] May also contact the 24-hour crisis hotline ([facility]), refer to the closest emergency room or [...] May also contact the 24-hour crisis hotline ([facility]), refer to the closest emergency room or [...] assess appearance, affect, AIMS, or vital signs. Wynne agreement to continue current regimen at this [...] May also contact the 24-hour crisis hotline ([facility]), refer to the closest emergency room or [...] May also contact the 24-hour crisis hotline ([facility]), refer to the closest emergency room or [...] May also contact the 24-hour crisis hotline ([facility]), refer to the closest emergency room or [...] May also contact the 24-hour crisis hotline ([facility]), refer to the closest emergency room or [...] of education, treatment plan and follow up. 05/07/2024 Other Learning About the Safe Use of Antibiotics material was published, Cephalexin Oral Capsule (CEPHALEXIN - ORAL) material was published to patient portal, Learning About the Safe Use of Antibiotics material was printed, Cephalexin Oral Capsule (CEPHALEXIN - ORAL) material was printed Plan Of Treatment Future Test Test Name Order Date Mammogram Breast - Bilateral Screening 0 10/03/2023 UA/M w/rflx Culture, Routine 09/03/2024 Next Appt Details Provider Name:Miracle Ramirez Huong n, 12/03/2024 01:20:00 PM, [address], [place], [address], Insurance Providers Payer Name Payer Address Payer Phone Subscriber Number Group Number Insured Name Patient Relationship to Insured Coverage Start Date Coverage End Date [facility] Attn Claims Department [address] [place] [phone] [id number] Thom Ponce Self - patient is the insured 1 [facility] Att[facility] Claims Department [address] [place] [phone] [id number] Thom Ponce Self - patient is the insured 1 Medical (General) History Medical History History ICD Code Post depression F53.0 Depression F32.9 Epilepsy G40.909 Post traumatic stress disorder (PTSD) F4 3.10 Lupus Surgical History Surgery Date(Month/Year) Hernia 1974 1997 C-secction 2016 laparoscopic 2019 Elbow/hand surgery 12/2022 Hospitalization History Reason Date(Month/Year)
--- OUTSIDE RECORDS SUMMARY | 2024-11-21 14:49 | XMS_ITS ---
Author Organization [facility] Address [address] [place] [address] Care Team Providers Care Slat Basket Maker Helper Machine Name Role Phone Iris Guzmán Primary Care Provider [phone] Miracle Leigh Unavailable [phone] REASON FOR VISIT ER f/u, she says she may be still having the same bladder issue. Social History Sex Assigned At : Social History Observation Description Sex Assigned At Female Encounters Encounter Location Date Provider Diagnosis [facility] [address] [address] 10/17/2024 Iris Guzmán Plan Of Treatment Next Appt Details Provider Name:Miracle quevedo, 12/03/2024 01:20:00 PM, [address], [place], [address], Progress Notes * Ceci PACKEROB:[birth year] (48 yo F)Acc No.[id number]:10/17/2024 UNLOCKED PROGRESS NOTE Progress Note Patient: Lelo Thom DIAZ Provider: Alice Guzmán, MSN, DIRECTOR OF COMPLIANCE, COMMISSIONS MANAGER-BC, COMMISSIONS MANAGER-C :1975 A ge:48 Y S ex:Female Date:10/17/2024 Address:[address], [place], [place] Subjective: * Chief Complaints: * 1 . ER f/u, she says she may be still having the same bladder issue.. * Medical History: Objective: * Vitals: Assessment: Plan: * Treatment: * * Electronic signature of Deshawn Guzmán APRN, [id number] on 11/21/2024 at 02:48 PM CDT Sign off status: Pending * Provider: Alice Guzmán, MSN, DIRECTOR OF COMPLIANCE, COMMISSIONS MANAGER-BC, COMMISSIONS MANAGER-C Date: 0 10/17/2024 Generated for Printing/Faxing/eTransmitting on: 0 11/21/2024 02:48 PM CDT
--- OUTSIDE RECORDS SUMMARY | 2024-11-21 14:50 | XMS_ITS ---
Author Organization [facility] Address [address] [place] [address] Care Team Providers Care Secure Software Assessor Name Role Phone Iris Guzmán Primary Care Provider Miracle Leigh Unavailable [phone] REASON FOR VISIT 4 week F/U. r/s from 09/17 Social History Sex Assigned At : Social History Observation Description Sex Assigned At Female Encounters Encounter Location Date Provider Diagnosis [facility] [address] [place] [address] 10/01/2024 Miracle Leigh Plan Of Treatment Next Appt Details Provider Name:Miracle quevedo, 12/03/2024 01:20:00 PM, [address], [place], [address], Progress Notes * Ceci PACKEROB:[birth year] (48 yo F)Acc No.[id number]:10/01/2024 UNLOCKED PROGRESS NOTE Patient: Lelo Thom DIAZ Provider: Brit Leigh, MSN, MANAGER ER, COMMERCIAL REAL ESTATE ASSISTANT-C :1975 A ge:48 Y S ex:Female Date:10/01/2024 Address:[address], [place], [place] Pcp:Iris Guzmán Subjective: * Chief Complaints: * 1 . 4 week F/U. r/s from 09/17. * Medical History: Objective: * Vitals: Assessment: Plan: * Treatment: * * Electronic signature of Dara Leigh , [id number] on 11/21/2024 at 02:49 PM CDT Sign off status: Pending * Provider: Brit Leigh, LYSSA, MANAGER ER, COMMERCIAL REAL ESTATE ASSISTANT-C Date: 0 10/01/2024 Generated for Renee crain/Dennis/Raiza on: 0 11/21/2024 02:49 PM CDT
--- NOTE | 2024-11-21 16:40 | PC.NURSE ---
Patient states she did not finish her antibiotic from her last UTI and her symptoms have not gotten better
[2024-11-21 16:55] LABS: Add Urine Microscopic? YES; Appearance Urine Clear (Clear); Glucose Urine UA Negative (Negative); Leukocyte Esterase Ur Negative LEU/UL (Negative); Nitrate Urine Positive (Negative); Non Pathogenic Casts 0-2; Specific Grav Ur 1.022 (1.001-1.035)
--- NOTE | 2024-11-21 17:26 | ECG_ITS ---
Test Date: 2024-11-21 17:53:42 Measurements Intervals [place] Rate: 55 P: 42 VA: 180 QRS: 50 QRSD: 104 T: 48 QT: 420 QTc: 404 Interpretive Statements SINUS BRADYCARDIA OTHERWISE NORMAL ELECTROCARDIOGRAM No previous ECG available for comparison Electronically Signed On 11-22-2024 07:35:17 CDT by Luther Vyas M.D.
--- OUTSIDE RECORDS SUMMARY | 2024-11-21 17:31 | XMS_ITS | Clinical Summary ---
Author Organization [facility] al Address [address] [place] [address] Care Team Providers Care Asphalt Paving Superintendent Name Role Phone Unknown, Notinfile Primary Care [...] 03/18/2008 Surgical History Surgery Date Site/Laterality Comments [place] DELIVERY ONLY Section - (Added by TW [...] on file Legal Sex Female 3:40 PM RUSSIAN HISTORY PROFESSOR Gender Identity Not on file Sexual Orientation Not on file Obstetrics History Last Filed Vital Signs Vital Sign Reading Time Taken Comments Blood Pressure 120/60 02/29/2024 2:57 PM CDT Pulse 85 02/29/2024 2:57 PM CDT Temperature 36.6 C (97.8 F) 07/08/2022 11:38 AM RUSSIAN HISTORY PROFESSOR Respiratory Rate 20 02/29/2024 2:57 PM CDT [...] HEPATITIS C AB Routine 07/05/2016 4:53 AM RUSSIAN HISTORY PROFESSOR from Last 3 Months or Most Recently Relevant to Health Maintenance Results * Serum Hepatitis C ab (07/05/2016 4:53 AM RUSSIAN HISTORY PROFESSOR) HCV ab Nonreactive CDR HIST ORICAL RESULTS Serum 07/05/2016 4:53 AM RUSSIAN HISTORY PROFESSOR Narrative CDR HISTORICAL RESULTS - 07/06/2016 4:20 AM RUSSIAN HISTORY PROFESSOR Interpretive Data Positive results should be confirmed by a molecular method. If positive, a second separately collected sample should be submitted for Hepatitis C Virus (HCV) RNA Detection and Quantitation by Real-Time Reverse Environmental Monitoring Technician-PCR (RT-PCR). Current interpretive data was last revised on 2016. Moisés Mendieta MD LAB BLOOD ORDERABLES Fi nal Result CDR HISTORICAL RESULTS from Last 3 Months or Most Recently Relevant to Health Maintenance Insurance [facility] Care Teams Asphalt Paving Superintendent Relationship Specialty Start Date End Date Unknown, Notinfile PCP - General 04/23/24
--- OUTSIDE RECORDS SUMMARY | 2024-11-21 17:31 | XMS_ITS | Referral Summary ---
Author Organization [facility] al Address [address] [place] [address] Care Team Providers Care Environmental Research Scientist Name Role Phone Unknown, Notinfile Primary Care [...] on file Legal Sex Female 3:40 PM FOOD SAFETY FIELD SPECIALIST Gender Identity Not on file Sexual Orientation Not on file Last Filed Vital Signs Vital Sign Reading Time Taken Comments Blood Pressure 120/60 02/29/2024 2:57 PM CDT Pulse 85 02/29/2024 2:57 PM CDT Temperature 36.6 C (97.8 F) 07/08/2022 11:38 AM FOOD SAFETY FIELD SPECIALIST Respiratory Rate 20 02/29/2024 2:57 PM CDT [...] HEPATITIS C AB Routine 07/05/2016 4:53 AM FOOD SAFETY FIELD SPECIALIST from Last 3 Months or Most Recently Relevant to Health Maintenance Results * Serum Hepatitis C ab (07/05/2016 4:53 AM FOOD SAFETY FIELD SPECIALIST) HCV ab Nonreactive CDR HIST ORICAL RESULTS Serum 07/05/2016 4:53 AM FOOD SAFETY FIELD SPECIALIST Narrative CDR HISTORICAL RESULTS - 07/06/2016 4:20 AM FOOD SAFETY FIELD SPECIALIST Interpretive Data Positive results should be confirmed by a molecular method. If positive, a second separately collected sample should be submitted for Hepatitis C Virus (HCV) RNA Detection and Quantitation by Real-Time Reverse Credit Reporting Clerk-PCR (RT-PCR). Current interpretive data was last revised on 2016. Moisés Mendieta MD LAB BLOOD ORDERABLES Fi nal Result CDR HISTORICAL RESULTS from Last 3 Months or Most Recently Relevant to Health Maintenance Insurance [place] [address] [facility] Care Teams Environmental Research Scientist Relationship Specialty Start Date End Date Unknown, Notinfile PCP - General 04/23/24
--- NOTE | 2024-11-21 17:35 | ED_ITS ---
HPI - Abdominal Pain General Chief Complaint: Urogenital-Female Stated Complaint: urinary frequency, kidney pain Time Seen by Provider: 11/21/24 17:03 History of Present Illness HPI narrative: Patient is a 48-year-old female who presents to the ER with complaints of dizziness, fatigue, brain fog, urinary frequency, and lower abdominal pressure. She reports she has had multiple urinary tract infections over the past year. Patient reports she is currently homeless and has primary care provider [facility] a difficult for to get to see this provider. She endorses history of seizures and reports she takes Tegretol every day. Patient denies any chest pain, shortness of breath, or recent fevers. Related Data Home Medications ?Medication ?Instructions ?Recorded ?Confirmed ?Last Taken ?Type olanzapine 10 mg tablet 10 mg PO DAILY 01/11/22 10/23/24 10/23/24 History gabapentin 300 mg capsule 300 mg PO Q12H 10/23/24 10/23/24 10/22/24 20:00 History 300 mg oxybutynin chloride 10 mg 10 mg PO DAILY 10/23/24 10/23/24 10/22/24 07:00 History tablet,extended release 24 hr 10 mg pantoprazole 40 mg tablet,delayed 40 mg PO DAILY 10/23/24 10/23/24 10/22/24 07:00 History release 40 mg Allergies Allergy/AdvReac Type Severity Reaction Status Date / Time hydroxychloroquine Allergy Mild Agitated Verified 11/21/24 14:49 peanut Allergy Anaphylaxis Verified 11/21/24 14:49 Sulfa (Sulfonamide AdvReac Muscle Pain Verified 11/21/24 14:49 Antibiotics) Review of Systems 2 Review of Systems: All systems reviewed & are unremarkable except as noted in HPI and below PMFSH Past Medical History Medical History Vitamin D deficiency Inflammatory arthropathy ESTHER positive Anxiety Asthma Claustrophobia Seizures Depression Surgical History Surgical History History of tubal ligation History of History of hernia repair Family History Family History Mother Family history of mental disorder Father Family history of diabetes mellitus in first degree relative Family history of coronary artery disease Other Arthritis Asthma Cancer Depression Diabetes mellitus Heart disease High cholesterol Hypertension Social History Social History Smoking status: Former smoker Tobacco type: cigarettes Additional smoking assessment comments: cigarettes 1/2 ppd x 5 1/2 years Alcohol intake: never Substance use type: marijuana Other substance usage details: smoking and eatables daily Do You Feel Safe in your Home?: No Lack of Transportation: YES Lack of Food: Sometimes True Current Housing: I Do Not Have Housing Concerned About Future Housing: YES Difficulty Paying Gas/Electric Bills: YES Difficulty Paying for Meds: YES Currently Unemployed: No Education: Associate Degree Difficulty w/ Childcare or Family Care: No Living arrangements: with roommate(s) Gender identity (if verbalized by the patient): Female Spiritual care concerns: No Exam 2 Narrative: GENERAL: Well appearing, well-nourished, non-toxic, in no acute distress. HEAD: Normocephalic, atraumatic. NECK: Supple. No adenopathy, no masses. RESPIRATORY: Airway patent, respirations nonlabored. Clear to auscultation bilaterally, no rales, rhonchi, wheezing. CARDIOVASCULAR: Regular rate and rhythm without murmurs, rubs, or gallops. Peripheral pulses 2+ and equal bilaterally. +CVA tenderness bilaterally ABDOMINAL: Soft, tender bilateral lower quadrants, nondistended, no hepatosplenomegaly. Normoactive BS. MUSCULOSKELETAL: Moves all extremities. Strength/ROM intact without gross deformities. SKIN: Warm, dry, normal color. No rashes. NEURO: A&O X3. Speech clear. Cranial nerves II-XII intact. No ataxic movements. PSYCHIATRIC: Appropriate mood and affect. Normal interaction. Course Vital Signs Vital signs: Vital Signs Temperature 36.4 C 11/21/24 14:47 Pulse Rate 72 11/21/24 14:47 Respiratory Rate 18 11/21/24 14:47 Blood Pressure 123/90 11/21/24 14:47 Pulse Oximetry 98 11/21/24 14:47 Oxygen Delivery Room Air 11/21/24 14:47 Temperature 36.4 C 11/21/24 14:47 Pulse Rate 60 11/21/24 18:30 Respiratory Rate 18 11/21/24 18:30 Blood Pressure 127/77 11/21/24 18:30 Pulse Oximetry 98 11/21/24 18:30 Oxygen Delivery Room Air 11/21/24 14:47 MDM - Abdominal Pain MDM Narrative Medical decision making narrative: Patient is a 48-year-old female who presents to the ER with complaints of dizziness, fatigue, brain fog, urinary frequency, and lower abdominal pressure. She reports she has had multiple urinary tract infections over the past year. Patient reports she is currently homeless and has primary care provider [facility] difficult for to get to see this provider. She endorses history of seizures and reports she takes Tegretol every day. Patient denies any chest pain, shortness of breath, or recent fevers. Labs Ordered: CMP, CBC, UA, lipase, INR, PTT, lactic acid, UDS Imaging Ordered: CT abdomen pelvis Medications Ordered: 1 L normal saline IV bolus, morphine 4 mg IV, Zofran 4 mg IV Results: Patient's CBC indicates red blood cells of 4.08, hemoglobin of 12.5, hematocrit of 36.9%. Her CMP indicates a sodium of 120, chloride of 90, creatinine of 0.40. Patient's urinalysis is positive for nitrates and has 3-5 RBCs. Diagnosis: Hyponatremia, urinary tract infection Consults: 194-spoke with hospitalist, Dr. Galdamez, with the in agreement with plan for patient's admission. She will be admitted to the med/surg floor with telemetry. He requests patient receives a head CT scan prior to admission. Patient verbalizes understanding and is in agreement with plan. Differential Diagnosis Differential diagnosis: Likely abdominal pain, diverticulitis, gastroenteritis and other (Pyelonephritis) Lab Data Attestation: I reviewed the patient's lab results. 11/21/24 17:50 11/21/24 18:42 Labs: Lab Results 11/21/24 11/21/24 11/21/24 Range/Units 16:42 17:50 18:42 WBC 5.4 (4.5-10.0) K/mm3 RBC 4.08 L (4.2-5.4) M/mm3 Hgb 12.5 (12.0-15.0) g/dL Hct 36.9 L (37.0-47.0) % MCV 90.4 (80-100) fl MCH 30.6 (26-34) pg MCHC 33.9 (32-36) g/dl RDW 11.9 (11.5-14.5) % Plt Count 274 (150-375) k/mm3 MPV 8.2 (7.4-10.4) fl Immature Gran % (Auto) 0.6 H (0-0.5) % Neut % (Auto) 56.8 (45.5-73.1) % Lymph % (Auto) 28.3 (18.3-44.2) % [place] % (Auto) 9.3 H (2.6-8.5) % Eos % (Auto) 4.3 (0-4.4) % Baso % (Auto) 0.7 (0.2-1.2) % Lymph # (Auto) 1.52 (0.9-3.2) K/mm3 [place] # (Auto) 0.5 (0.1-0.6) K/mm3 Eos # (Auto) 0.2 (0-0.3) K/mm3 Baso # (Auto) 0.0 (0.0-0.1) K/mm3 Abs Immat Gran (auto) 0.03 (0.00-0.031) K/mm3 Absolute Neuts (auto) 3.1 (1.3-6.7) K/mm3 Absolute Nucleated RBC 0.000 (0.0-0.012) K/mm3 Nucleated RBC % 0.0 (0.0-0.2) % PT 13.2 (11.1-14.7) Seconds INR 1.0 APTT 26.6 (22.3-36.8) Seconds Sodium 120 L (137-145) mmol/L Potassium 4.5 (3.4-5.0) mmol/L Chloride 90 L (98-107) mmol/L Carbon Dioxide 23 (22-30) mmol/L Anion Gap 7 (4-12) mmol/L BUN 11 (7-17) mg/dL Creatinine 0.54 L 0.40 L (0.7-1.0) mg/dL Estim Creat Clear Calc 99 129 ml/min Estimated GFR > 60 > 60 (59 - ) Glucose 89 (65-110) mg/dL Lactic Acid Pending Calcium 8.7 (8.4-10.2) mg/dL Total Bilirubin 0.4 (0.2-1.3) mg/dL AST 32 (14-36) U/L ALT 20 (6-35) U/L Alkaline Phosphatase 122 (38-126) U/L Total Protein 7.0 (6.3-8.2) g/dL Albumin 4.0 (3.5-5.1) g/dL Lipase 42 (23-300) U/L Urine Color Yellow (Yellow) Urine Appearance Clear (Clear) Urine pH 6.0 (5.0-9.0) Ur Specific [place] 1.022 (1.001-1.035) Urine Protein Negative (Negative) mg/dL Urine Glucose (UA) Negative (Negative) mg/dL Urine Ketones Negative (Negative) mg/dL Ur Blood (Man) Trace (Negative) Urine Nitrate Positive H (Negative) Urine Bilirubin Negative (Negative) Urine Urobilinogen 1.0 (<2.0) mg/dL Leukocyte Esterase Rfl Negative (Negative) OC/UL Urine RBC 3-5 H (0-2) /hpf Urine WBC 0-5 (0-3) /hpf Ur Squamous Epith Cells Occasional (Few) /hpf Urine Bacteria 4+ H /hpf Urine Casts 0-2 Ur Random Sodium Pending Urine Opiates Screen Pending Urine Methadone Screen Pending Ur Barbiturates Screen Pending Ur Phencyclidine Scrn Pending Ur Amphetamine Screen Pending U Benzodiazepines Scrn Pending Urine Cocaine Screen Pending U Cannabinoids Screen Pending Imaging Data Attestation: I personally reviewed and interpreted this imaging study as follows: Radiologist's impression: ITS Impressions Abdomen/Pelvis CT 11/21/24 19:02 IMPRESSION: Mild esophagitis/gastritis. Mild urinary bladder wall thickening, as can be seen with cystitis. Head CT 11/21/24 20:12 IMPRESSION: No acute intracranial process. CT findings may suggest the presence of acute sinusitis in the appropriate clinical context. Discharge Plan Discharge Clinical Impression: Hyponatremia, Urinary tract infection, Dizziness Patient Disposition: Still a Patient Condition: Stable
[2024-11-21] MEDS: SODIUM CHLORIDE 0.9% IV 1,000 ML 999 ML IV CONT ×2 (17:52→19:15)
[2024-11-21] MEDS: MORPHINE SULFATE (*CRX) 4 MG/ML INJ IV PUSH (17:52)
[2024-11-21] MEDS: ONDANSETRON INJ 4 MG/2 ML VIAL IV PUSH (17:52)
[2024-11-21 18:00] LABS: Hematocrit 36.9 % (37.0-47.0); Hemoglobin 12.5 g/dL (12.0-15.0); Immature Granulocyte Percent A 0.6 % (0-0.5); Lymphocytes Absolute Auto 1.52 K/mm3 (0.9-3.2); Mean Corpuscular HGB Conc 33.9 g/dl (32-36); Mean Corpuscular Hemoglobin 30.6 pg (26-34); Mean Corpuscular Volume 90.4 fl (80-100); Nucleated Red Blood Cells Absolute Auto 0.000 K/mm3 (0.0-0.012); Nucleated Red Blood Cells Perc 0.0 % (0.0-0.2); Platelet Count Result 274 k/mm3 (150-375); Red Blood Count 4.08 M/mm3 (4.2-5.4); White Blood Count 5.4 K/mm3 (4.5-10.0)
[2024-11-21 18:12] LABS: INR 1.0; Prothrombin Time 13.2 Seconds (11.1-14.7)
[2024-11-21 18:13] LABS: Partial Thromboplastin Time 26.6 Seconds (22.3-36.8)
[2024-11-21 18:30] VITALS: BP 127/77; PULSE 60; RESP 18; O2SAT 98
[2024-11-21 18:44] LABS: Estimated CRCL calculation 129 ml/min; Estimated Glomerular Filt Rate > 60
[2024-11-21 19:00] LABS: Alanine Aminotransferase 20 U/L (6-35); Albumin Level 4.0 g/dL (3.5-5.1); Alkaline Phosphatase 122 U/L (38-126); Anion Gap 7 mmol/L (4-12); Aspartate Amino Transferase 32 U/L (14-36); Bilirubin,Total 0.4 mg/dL (0.2-1.3); Blood Urea Nitrogen 11 mg/dL (7-17); Calcium 8.7 mg/dL (8.4-10.2); Carbon Dioxide 23 mmol/L (22-30); Chloride 90 mmol/L (98-107); Estimated CRCL calculation 99 ml/min; Estimated Glomerular Filt Rate > 60; Glucose 89 mg/dL (65-110); Lipase 42 U/L (23-300); Potassium 4.5 mmol/L (3.4-5.0); Sodium 120 mmol/L (137-145); Total Protein 7.0 g/dL (6.3-8.2)
[2024-11-21] MEDS: cefTRIAXone 1 GM in SODIUM CHLORIDE 0.9% IV 50 ML 100 ML IVPB (19:17)
[2024-11-21 21:59] VITALS: BMI 37.9
[2024-11-21 22:00] VITALS: BP 126/81; PULSE 73; RESP 16; TEMP 35.5; O2SAT 100
--- NOTE | 2024-11-21 22:07 | ADMGEN ---
This patient, Thom Zamora, was admitted to [facility] Surg Room 314-02. Patient/family oriented to hospital policies and general routines including ID bracelet, bed and alarms, visiting hours, pain management, procedures, bathroom and other care routines, personal items, smoking policy, room service/diet, and visiting hours. Information on how to activate the Rapid Response Team has been discussed. Patient/Family are encouraged to report perceived risks to care and to ask questions if they do not understand what they are told or what they should do.
[2024-11-21] MEDS: SODIUM CHLORIDE 0.9% IV 1,000 ML 125 ML IV CONT (22:42)
[2024-11-21] MEDS: GABAPENTIN 300 MG CAPSULE PO (22:52)
--- NOTE | 2024-11-21 23:03 | PHAR ---
PT'S HOME MED A[facility]EDO XR 30 MG TAB VERIFIED BY PHARMACY
[2024-11-21] MEDS: clonazePAM (*CRX) 0.5 MG TABLET 1 MG PO (23:13)
[2024-11-22] VITALS (8 sets, daily range): BP systolic 110–123; BP diastolic 47–65; PULSE 49–64; RESP 16–20; TEMP 35.3–37.1; O2SAT 96–100
[2024-11-22 00:16] LABS: Anion Gap 4 mmol/L (4-12); Blood Urea Nitrogen 7 mg/dL (7-17); Calcium 8.5 mg/dL (8.4-10.2); Carbon Dioxide 24 mmol/L (22-30); Chloride 99 mmol/L (98-107); Estimated CRCL calculation 103 ml/min; Estimated Glomerular Filt Rate > 60; Glucose 120 mg/dL (65-110); Potassium 3.5 mmol/L (3.4-5.0); Sodium 127 mmol/L (137-145)
--- NOTE | 2024-11-22 03:19 | PM.IMHP ---
H&P: HPI History of Present Illness Date/Time: 11/22/24 03:19 Chief Complaint: Dizziness Narrative: 48-year-old female with a history of anxiety and depression, seizures, chronic hyponatremia who presents to [facility] ER on 11/21/2024 complaint of dizziness fatigue brain fog urinary frequency and lower abdominal pressure. She has a history of multiple UTIs as well. The patient has been homeless for few months, she will be placed soon and a residence. She has not been able to see her PCP recently. She reports she is compliant with all of her medications spite of being homeless. She does feel she has been dehydrated the past few days it has been very hot out. Denies drug use. She has chronic hyponatremia however presented with a sodium of 120 which is lower than her usual. Urinalysis positive for nitrates, 4+ bacteria, some squamous cells. Abdomen pelvis CT demonstrating esophagitis/gastritis and mild urinary bladder wall thickening. CT head not demonstrate acute process. She received ceftriaxone, clonidine, 2 L normal saline bolus, morphine 4 mg IV x1, Zofran. Afterwards patient reported feeling significantly better. Symptoms have mostly resolved. Review of Systems Review of Systems: All systems reviewed & are unremarkable except as noted in HPI and below (Subjective) PMFSH Past Medical History Medical History Vitamin D deficiency Inflammatory arthropathy ESTHER positive Anxiety Asthma Claustrophobia Seizures Depression Surgical History Surgical History History of tubal ligation History of History of hernia repair Family History Family History Mother Family history of mental disorder Father Family history of diabetes mellitus in first degree relative Family history of coronary artery disease Other Arthritis Asthma Cancer Depression Diabetes mellitus Heart disease High cholesterol Hypertension Social History Social History Smoking status: Never smoker Tobacco type: cigarettes Additional smoking assessment comments: cigarettes 1/2 ppd x 5 1/2 years Alcohol intake: never Substance use: current Substance use type: marijuana Other substance usage details: smoking and eatables daily Last use: 11/20/2024 Do You Feel Safe in your Home?: Yes Lack of Transportation: YES Lack of Food: Often True Current Housing: I Do Not Have Housing Concerned About Future Housing: YES Difficulty Paying Gas/Electric Bills: YES Difficulty Paying for Meds: YES Currently Unemployed: YES Education: High School Diploma/GED Difficulty w/ Childcare or Family Care: No Living arrangements: with roommate(s) Gender identity (if verbalized by the patient): Female Spiritual care concerns: No Meds Home Medications and Allergies Home Medications ?Medication ?Instructions ?Recorded ?Confirmed ?Type albuterol sulfate 90 mcg/actuation 2 puff inhalation QID PRN 07/06/19 11/21/24 Rx aerosol inhaler shortness of breath or wheezing #6.7 grams carbamazepine 200 mg tablet 200 mg PO .COMPLEX #180 tabs 12/28/20 11/21/24 Rx clonazepam 1 mg tablet 1 mg PO BID #30 tabs 01/29/21 11/21/24 Rx olanzapine 10 mg tablet 10 mg PO DAILY 01/11/22 11/21/24 History gabapentin 300 mg capsule 300 mg PO Q12H 10/23/24 11/21/24 History oxybutynin chloride 10 mg 10 mg PO DAILY 10/23/24 11/21/24 History tablet,extended release 24 hr pantoprazole 40 mg tablet,delayed 40 mg PO DAILY 10/23/24 11/21/24 History release deutetrabenazine 24 mg 30 mg PO DAILY 11/21/24 11/21/24 History tablet,extended release 24 hr (Austedo XR) Allergies Allergy/AdvReac Type Severity Reaction Status Date / Time hydroxychloroquine Allergy Mild Agitated Verified 11/21/24 22:18 peanut Allergy Anaphylaxis Verified 11/21/24 22:18 Sulfa (Sulfonamide AdvReac Muscle Pain Verified 11/21/24 22:18 Antibiotics) Vital Signs Vital Signs - 24 hr 11/21/24 14:47 11/21/24 18:30 11/21/24 22:00 Temperature 97.6 F 95.9 F L Pulse Rate 72 60 73 Respiratory Rate 18 18 16 Blood Pressure 123/90 127/77 126/81 Pulse Oximetry 98 98 100 Oxygen Delivery Room Air Exam Const: General: comfortable and no acute distress Other: A&O x3 HENMT: Mouth: Yes moist mucous membranes Eyes: Pupils: Equal, round and reactive pupils present Neck: Neck: supple Resp: Effort & Inspection: normal respiratory effort Auscultation: clear to auscultation bilaterally Cardio: Rate: regular rate Rhythm: regular rhythm Heart sounds: no gallops, no murmurs and no rubs GI: Inspection: non-distended GI Palp: Yes Soft to palpation Neuro: Motor exam (neuro): 5/5 motor strength present throughout Extrem: General: no edema H&P: Results Labs Labs: Short CBC 11/21/24 Range/Units 17:50 WBC 5.4 (4.5-10.0) K/mm3 Hgb 12.5 (12.0-15.0) g/dL Hct 36.9 L (37.0-47.0) % Plt Count 274 (150-375) k/mm3 BMP 11/21/24 11/21/24 11/21/24 17:50 18:42 23:44 Sodium 120 L 127 L Potassium 4.5 3.5 Chloride 90 L 99 Carbon Dioxide 23 24 BUN 11 7 Creatinine 0.54 L 0.40 L 0.54 L Glucose 89 120 H Calcium 8.7 8.5 Liver Function 11/21/24 Range/Units 17:50 Total Bilirubin 0.4 (0.2-1.3) mg/dL AST 32 (14-36) U/L ALT 20 (6-35) U/L Alkaline Phosphatase 122 (38-126) U/L Albumin 4.0 (3.5-5.1) g/dL Urine 11/21/24 Range/Units 16:42 Urine Color Yellow (Yellow) Urine Appearance Clear (Clear) Urine pH 6.0 (5.0-9.0) Ur Specific [place] 1.022 (1.001-1.035) Urine Protein Negative (Negative) mg/dL Urine Glucose (UA) Negative (Negative) mg/dL Assessment and Plan Assessment and plan (1) Hyponatremia: Code(s): E87.1 - Hypo-osmolality and hyponatremia Status: Acute (2) Acute hyponatremia: Code(s): E87.1 - Hypo-osmolality and hyponatremia Status: Acute (3) Urinary tract infection: Code(s): N39.0 - Urinary tract infection, site not specified Status: Acute Plan 48-year-old female with a history of anxiety and depression, seizures, chronic hyponatremia who presents to [facility] ER on 11/21/2024 complaint of dizziness fatigue brain fog urinary frequency and lower abdominal pressure. She has a history of multiple UTIs as well. The patient has been homeless for few months, she will be placed soon and a residence. She has not been able to see her PCP recently. She reports she is compliant with all of her medications spite of being homeless. She does feel she has been dehydrated the past few days it has been very hot out. Denies drug use. She has chronic hyponatremia however presented with a sodium of 120 which is lower than her usual. Urinalysis positive for nitrates, 4+ bacteria, some squamous cells. Abdomen pelvis CT demonstrating esophagitis/gastritis and mild urinary bladder wall thickening. CT head not demonstrate acute process. She received ceftriaxone, clonidine, 2 L normal saline bolus, morphine 4 mg IV x1, Zofran. Afterwards patient reported feeling significantly better. Symptoms have mostly resolved. ----- The patient's symptoms may be related to dehydration or hyponatremia. Status post fluid resuscitation her sodium increased from 120-127. This is around her baseline now and her symptoms have resolved. Will recheck another BMP now to ensure there is no over-correction. At this time she is receiving normal saline at 125 cc/hour. Drug urine screen pending, there is a delayed today because of laboratory downtime. Urinalysis abnormal although there squamous cells. However with the patient's complaint of urinary frequency. Continue ceftriaxone, blood and urine cultures are pending. She does take Tegretol and olanzapine. Both of which can cause hyponatremia. Will continue BRICK STACKER olanzapine however hold Tegretol. Pending Tegretol level. Patient would like to be full code. Normal saline infusion. SCDs. Ambulate with assistance. Hospitalist [facility] Advance Care Plan I have confirmed that the patient's Advanced Care Plan is present, code status is documented, or surrogate decision maker is listed in patient medical record.: Yes Medication Reconciliation I have utilized all available resources to obtain, update and review the patients current medications (includes all prescriptions, OTC, herbals, cannabis, and nutritional supplements).: Yes
[2024-11-22 03:39] LABS: Anion Gap 7 mmol/L (4-12); Blood Urea Nitrogen 8 mg/dL (7-17); Calcium 8.5 mg/dL (8.4-10.2); Carbon Dioxide 19 mmol/L (22-30); Chloride 104 mmol/L (98-107); Estimated CRCL calculation 111 ml/min; Estimated Glomerular Filt Rate > 60; Glucose 80 mg/dL (65-110); Magnesium 2.1 mg/dL (1.6-2.3); Potassium 4.2 mmol/L (3.4-5.0); Sodium 130 mmol/L (137-145)
[2024-11-22 05:18] LABS: Anion Gap 7 mmol/L (4-12); Blood Urea Nitrogen 8 mg/dL (7-17); Calcium 8.8 mg/dL (8.4-10.2); Carbon Dioxide 26 mmol/L (22-30); Chloride 100 mmol/L (98-107); Estimated CRCL calculation 93 ml/min; Estimated Glomerular Filt Rate > 60; Glucose 91 mg/dL (65-110); Potassium 4.3 mmol/L (3.4-5.0); Sodium 133 mmol/L (137-145)
[2024-11-22] MEDS: DEXTROSE 5% 1,000 ML 1,000 ML 250 ML IV CONT (06:19)
[2024-11-22] MEDS: DESMOPRESSIN ACETATE 4 MCG/ML AMP 2 MCG IV PUSH (06:19)
[2024-11-22 07:30] LABS: Cannabinoid Screen Urine Positive (Negative)
--- OUTSIDE RECORDS SUMMARY | 2024-11-22 08:33 | XMS_ITS ---
Author Organization [facility] Address [address] [place] [address] Care Team Providers Care Spiral Spring Winder Name Role Phone Iris Guzmán Primary Care Provider Miracle Leigh Unavailable [phone] REASON FOR VISIT ER f/u, she says she may be still having the same bladder issue. Social History Sex Assigned At : Social History Observation Description Sex Assigned At Female Encounters Encounter Location Date Provider Diagnosis [facility] [address] [address] 10/17/2024 Iris Guzmán Plan Of Treatment Next Appt Details Provider Name:Miracle quevedo, 12/03/2024 01:20:00 PM, [address], [place], [address], Progress Notes * Ceci PACKEROB:[birth year] (48 yo F)Acc No.[id number]:10/17/2024 UNLOCKED PROGRESS NOTE Progress Note Patient: Lelo Thom DIAZ Provider: Alice Guzmán, MSN, SHEEP FARM MANAGER, TOOL RADIAL DRILL PRESS SET UP OPERATOR-BC, TOOL RADIAL DRILL PRESS SET UP OPERATOR-C :1975 A ge:48 Y S ex:Female Date:10/17/2024 Address:[address], [place], [place] Subjective: * Chief Complaints: * 1 . ER f/u, she says she may be still having the same bladder issue.. * Medical History: Objective: * Vitals: Assessment: Plan: * Treatment: * * Electronic signature of Deshawn Guzmán APRN, [id number] on 11/22/2024 at 08:32 AM CDT Sign off status: Pending * Provider: Alice Guzmán, MSN, SHEEP FARM MANAGER, TOOL RADIAL DRILL PRESS SET UP OPERATOR-BC, TOOL RADIAL DRILL PRESS SET UP OPERATOR-C Date: 0 10/17/2024 Generated for Printing/Faxing/eTransmitting on: 0 11/22/2024 08:32 AM CDT
--- OUTSIDE RECORDS SUMMARY | 2024-11-22 08:33 | XMS_ITS | Clinical Summary ---
Author Organization [facility] al Address [address] [place] [address] Care Team Providers Care Buggy Driver Name Role Phone Unknown, Notinfile Primary Care [...] 03/18/2008 Surgical History Surgery Date Site/Laterality Comments CT DELIVERY ONLY Section - (Added by TW [...] on file Legal Sex Female 3:40 PM FIRE CLAIMS ADJUSTER Gender Identity Not on file Sexual Orientation Not on file Obstetrics History Last Filed Vital Signs Vital Sign Reading Time Taken Comments Blood Pressure 120/60 02/29/2024 2:57 PM CDT Pulse 85 02/29/2024 2:57 PM CDT Temperature 36.6 C (97.8 F) 07/08/2022 11:38 AM FIRE CLAIMS ADJUSTER Respiratory Rate 20 02/29/2024 2:57 PM CDT [...] HEPATITIS C AB Routine 07/05/2016 4:53 AM FIRE CLAIMS ADJUSTER from Last 3 Months or Most Recently Relevant to Health Maintenance Results * Serum Hepatitis C ab (07/05/2016 4:53 AM FIRE CLAIMS ADJUSTER) HCV ab Nonreactive CDR HIST ORICAL RESULTS Serum 07/05/2016 4:53 AM FIRE CLAIMS ADJUSTER Narrative CDR HISTORICAL RESULTS - 07/06/2016 4:20 AM FIRE CLAIMS ADJUSTER Interpretive Data Positive results should be confirmed by a molecular method. If positive, a second separately collected sample should be submitted for Hepatitis C Virus (HCV) RNA Detection and Quantitation by Real-Time Reverse Press Worker Helper-PCR (RT-PCR). Current interpretive data was last revised on 2016. Moisés Mendieta MD LAB BLOOD ORDERABLES Fi nal Result CDR HISTORICAL RESULTS from Last 3 Months or Most Recently Relevant to Health Maintenance Insurance [facility] Care Teams Buggy Driver Relationship Specialty Start Date End Date Unknown, Notinfile PCP - General 04/23/24
--- OUTSIDE RECORDS SUMMARY | 2024-11-22 08:33 | XMS_ITS | Referral Summary ---
Author Organization [facility] al Address [address] [place] [address] Care Team Providers Care Gear Inspector Name Role Phone Unknown, Notinfile Primary Care [...] on file Legal Sex Female 3:40 PM WEB EDITOR Gender Identity Not on file Sexual Orientation Not on file Last Filed Vital Signs Vital Sign Reading Time Taken Comments Blood Pressure 120/60 02/29/2024 2:57 PM CDT Pulse 85 02/29/2024 2:57 PM CDT Temperature 36.6 C (97.8 F) 07/08/2022 11:38 AM WEB EDITOR Respiratory Rate 20 02/29/2024 2:57 PM CDT [...] HEPATITIS C AB Routine 07/05/2016 4:53 AM WEB EDITOR from Last 3 Months or Most Recently Relevant to Health Maintenance Results * Serum Hepatitis C ab (07/05/2016 4:53 AM WEB EDITOR) HCV ab Nonreactive CDR HIST ORICAL RESULTS Serum 07/05/2016 4:53 AM WEB EDITOR Narrative CDR HISTORICAL RESULTS - 07/06/2016 4:20 AM WEB EDITOR Interpretive Data Positive results should be confirmed by a molecular method. If positive, a second separately collected sample should be submitted for Hepatitis C Virus (HCV) RNA Detection and Quantitation by Real-Time Reverse Instrument Repairer Steam Plant-PCR (RT-PCR). Current interpretive data was last revised on 2016. Moisés Mendieta MD LAB BLOOD ORDERABLES Fi nal Result CDR HISTORICAL RESULTS from Last 3 Months or Most Recently Relevant to Health Maintenance [place] [address] [place] [address] [facility] Care Teams Gear Inspector Relationship Specialty Start Date End Date Unknown, Notinfile PCP - General 04/23/24
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
--- OUTSIDE RECORDS SUMMARY | 2024-11-22 08:33 | XMS_ITS ---
Author Organization [facility] Address [address] [place] [address] Care Team Providers Care All Around Patternmaker Name Role Phone Iris Guzmán Primary Care Provider Miracle Leigh Unavailable [phone] REASON FOR VISIT 4 week F/U. r/s from 09/17 Social History Sex Assigned At : Social History Observation Description Sex Assigned At Female Encounters Encounter Location Date Provider Diagnosis [facility] [address] [place] [address] 10/01/2024 Miracle Leigh Plan Of Treatment Next Appt Details Provider Name:Miracle quevedo, 12/03/2024 01:20:00 PM, [address], [place], [address], Progress Notes * Ceci PACKEROB:[birth year] (48 yo F)Acc No.[id number]:10/01/2024 UNLOCKED PROGRESS NOTE Patient: Lelo Thom DIAZ Provider: Brit Leigh, MSN, SECURITIES CONSULTANT, DIRECTOR OF EMPLOYEE DEVELOPMENT-C :1975 A ge:48 Y S ex:Female Date:10/01/2024 Address:[address], [place], [place]-[address] Pcp:Iris Guzmán Subjective: * Chief Complaints: * 1 . 4 week F/U. r/s from 09/17. * Medical History: Objective: * Vitals: Assessment: Plan: * Treatment: * * Electronic signature of Dara Leigh , [id number] on 11/22/2024 at 08:33 AM CDT Sign off status: Pending * Provider: Brit Leigh, LYSSA, SECURITIES CONSULTANT, DIRECTOR OF EMPLOYEE DEVELOPMENT-C Date: 0 10/01/2024 Generated for Renee crain/Dennis/Raiza on: 0 11/22/2024 08:33 AM CDT
[2024-11-22 08:48] LABS: Anion Gap 3 mmol/L (4-12); Blood Urea Nitrogen 8 mg/dL (7-17); Calcium 8.4 mg/dL (8.4-10.2); Carbon Dioxide 26 mmol/L (22-30); Chloride 100 mmol/L (98-107); Estimated CRCL calculation 103 ml/min; Estimated Glomerular Filt Rate > 60; Glucose 104 mg/dL (65-110); Potassium 4.1 mmol/L (3.4-5.0); Sodium 129 mmol/L (137-145)
[2024-11-22] MEDS: clonazePAM (*CRX) 0.5 MG TABLET 1 MG PO ×2 (09:04→20:13)
[2024-11-22] MEDS: GABAPENTIN 300 MG CAPSULE PO ×2 (09:04→20:13)
[2024-11-22] MEDS: DEUTETRABENAZINE 30 MG 1 EACH PO (09:05)
[2024-11-22] MEDS: PANTOPRAZOLE 40 MG TABLET PO (09:05)
--- NOTE | 2024-11-22 10:41 | PM.CNNEP ---
Assessment and Plan Assessment and plan (1) Hyponatremia: Code(s): E87.1 - Hypo-osmolality and hyponatremia Status: Acute Assessment and Plan: The patient has low sodium. I suspect that this is probably chronic. Most likely carbamazepine and olanzapine are contributing to the hyponatremia. TSH is normal. We will check a cortisol and an SPEP. CT brain was done so no space occupying lesion causing the hyponatremia. The patient does not have a history of cancer. She should continue to be up-to-date with cancer surveillance though. She has asthma which does not usually cause hyponatremia. We can get a chest x-ray as 1 has not been done in the last few years. Patient's sodium level did increase faster than the recommended rate. Dr. Singer has already written for DDAVP and D5W. Will finish the 500cc of D5W then repeat the sodium in about an hour. I talked with nursing for that. On long-term basis the patient needs to be on a fluid restriction to keep her sodium level from dropping. She is on carbamazepine and olanzapine. Both of these are complicated medications in her particular case and would need Specialists to wean and/or replace. We will not attempt this now. (2) Urinary tract infection: Code(s): N39.0 - Urinary tract infection, site not specified Status: Acute Assessment and Plan: The patient has dysuria. Her UA shows only 3-5 red cells but no white cells. I am not sure what is going on there. Certainly she has had plenty of bladder infections over the last few months. She should probably follow up with Urology as an outpatient to look for causes for frequent bladder infections. (3) Seizures: Code(s): R56.9 - Unspecified convulsions Status: Acute Assessment and Plan: The patient is on carbamazepine. Level is pending. (4) Anxiety: Code(s): F41.9 - Anxiety disorder, unspecified Status: Acute Assessment and Plan: The patient is on olanzapine. History of Present Illness Reason for Consult Consult date: 11/22/24 Chief Complaint Chief complaint: hyponatremia History of Present Illness Narrative: Thom is a very pleasant 48-year-old lady who has multiple medical problems including vitamin-D deficiency, seizure history, depression, claustrophobia, asthma, anxiety, and inflammatory arthropathy. The patient was in the hospital in mid October. She came in because she thought she had a bladder infection. She was admitted and given IV antibiotics. Urine grew E coli. She was sent home with 2 weeks of Keflex. Was also given a probiotic. Yesterday the patient came back into the emergency room with pain with urination again. She was given antibiotics again. Blood and urine cultures have been done. She says that she also has pain from head to toe. This has been going on for a few days. The patient says a few days ago that she had a shot of alcohol (although she does not routinely drink) and immediately felt pain in her suprapubic area. She isn't sure if this is related her bladder infection or not The patient has had low sodium. Back in 2004 she had low sodium for 3 draws but subsequent draws until 2017 were normal. Then in 2019 and 2021 her sodium levels were low. Then no blood drawn was done until her hospitalization in October when it was 124. During that hospitalization her sodium level improved to 129. She had a TSH which was normal. The patient was discharged. Yesterday the patient came in and her sodium was 120. She was given normal saline in the ER. Sodium level was followed and cecil to 133 this morning at 5:00 a.m.. She was given 2mcg of DDAVP and also some D5W. Repeat sodium level is pending The patient takes carbamazepine and olanzapine. She has a severe seizure disorder in and apparently needs to stay on the carbamazepine. She is on olanzapine for her anxiety. She has been on both these medications for a long time. Do not have any prior sodium levels between 2021 and last month to see how her chronic sodium level runs. The patient denies history of cancer. 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 She does have asthma but otherwise no pulmonary disorders. Recent TSH was normal. Review of Systems Constitutional: Constitutional: Reports no additional constitutional complaints Eyes: Eyes: Reports no additional eye complaints ENT: Reports system reviewed and no additional complaints, except as documented Cardiovascular: Cardiovascular: Reports no additional cardiovascular complaints Respiratory: Respiratory: Reports no additional respiratory complaints Gastrointestinal: Gastrointestinal: Reports no additional gastrointestinal complaints Genitourinary: Genitourinary: Reports no additional female genitourinary complaints Musculoskeletal: Musculoskeletal: Reports no additional musculoskeletal complaints Integumentary/Breasts: Skin/Breast: Reports system reviewed and no additional complaints, except as docu Neurologic: Reports system reviewed and no additional complaints, except as documented Psychiatric: Psychiatric: Reports no additional psychiatric complaints Endocrine: Endocrine: Reports no additional endocrine complaints PMF Past Medical History Medical History (Updated 11/22/24 @ 10:55 by Gregory Brown MD) Seizures Vitamin D deficiency Inflammatory arthropathy ESTHER positive Anxiety Asthma Claustrophobia Depression Surgical History Surgical History History of tubal ligation History of History of hernia repair Family History Family History Mother Family history of mental disorder Father Family history of diabetes mellitus in first degree relative Family history of coronary artery disease Other Arthritis Asthma Cancer Depression Diabetes mellitus Heart disease High cholesterol Hypertension Social History Social History Smoking status: Never smoker Tobacco type: cigarettes Additional smoking assessment comments: cigarettes 1/2 ppd x 5 1/2 years Alcohol intake: never Substance use: current Substance use type: marijuana Other substance usage details: smoking and eatables daily Last use: 11/20/2024 Do You Feel Safe in your Home?: Yes Lack of Transportation: YES Lack of Food: Often True Current Housing: I Do Not Have Housing Concerned About Future Housing: YES Difficulty Paying Gas/Electric Bills: YES Difficulty Paying for Meds: YES Currently Unemployed: YES Education: High School Diploma/GED Difficulty w/ Childcare or Family Care: No Living arrangements: with roommate(s) Gender identity (if verbalized by the patient): Female Spiritual care concerns: No Meds Home Medications and Allergies Home Medications ?Medication ?Instructions ?Recorded ?Confirmed ?Type albuterol sulfate 90 mcg/actuation 2 puff inhalation QID PRN 07/06/19 11/21/24 Rx aerosol inhaler shortness of breath or wheezing #6.7 grams carbamazepine 200 mg tablet 200 mg PO .COMPLEX #180 tabs 12/28/20 11/21/24 Rx clonazepam 1 mg tablet 1 mg PO BID #30 tabs 01/29/21 11/21/24 Rx olanzapine 10 mg tablet 10 mg PO DAILY 01/11/22 11/21/24 History gabapentin 300 mg capsule 300 mg PO Q12H 10/23/24 11/21/24 History oxybutynin chloride 10 mg 10 mg PO DAILY 10/23/24 11/21/24 History tablet,extended release 24 hr pantoprazole 40 mg tablet,delayed 40 mg PO DAILY 10/23/24 11/21/24 History release deutetrabenazine 24 mg 30 mg PO DAILY 11/21/24 11/21/24 History tablet,extended release 24 hr (Austedo XR) Allergies Allergy/AdvReac Type Severity Reaction Status Date / Time hydroxychloroquine Allergy Mild Agitated Verified 11/21/24 22:18 peanut Allergy Anaphylaxis Verified 11/21/24 22:18 Sulfa (Sulfonamide AdvReac Muscle Pain Verified 11/21/24 22:18 Antibiotics) Vital Signs Vital Signs - 24 hr 11/21/24 14:47 11/21/24 18:30 11/21/24 22:00 Temperature 97.6 F 95.9 F L Pulse Rate 72 60 73 Respiratory Rate 18 18 16 Blood Pressure 123/90 127/77 126/81 Pulse Oximetry 98 98 100 Oxygen Delivery Room Air 11/22/24 04:00 11/22/24 06:00 11/22/24 08:00 Temperature 95.6 F L Pulse Rate 61 64 Respiratory Rate 20 Blood Pressure 123/47 L Pulse Oximetry 96 Oxygen Delivery Room Air 11/22/24 08:00 Temperature Pulse Rate 53 L Respiratory Rate Blood Pressure Pulse Oximetry Oxygen Delivery Exam Narrative: Exam Narrative: Well developed well-nourished female in no acute distress Skin is warm and dry without rash Head normocephalic atraumatic Eyes normal sclerae and conjunctivae Mouth normal lips teeth and gums Neck no nodes no thyromegaly no carotid bruits Axillae no nodes Back no CVA tenderness Lungs symmetric and clear to auscultation Heart regular rate and rhythm without rub or gallop Abdomen bowel sounds positive soft nontender, no HSM, masses, or bruits. Extremities no cyanosis, clubbing, or edema Pulses 2+ equal in radial arteries Psychological not anxious or depressed Neuro alert and oriented x3 motor 5/5 cranial nerves 2-12 intact reflexes 2+ and equal in the biceps and patellar tendons cerebellar normal rapid alternating movements Results Lab Results 11/21/24 17:50 11/22/24 08:26 Lab results: Most recent lab results Calcium 8.4 mg/dL (8.4-10.2) 11/22/24 08:26 Magnesium 2.1 mg/dL (1.6-2.3) 11/22/24 02:32
--- NOTE | 2024-11-22 12:14 | PM.IMPN ---
Progress Note: A&P Assessment and Plan (1) Hyponatremia: Code(s): E87.1 - Hypo-osmolality and hyponatremia Status: Acute (2) Acute hyponatremia: Code(s): E87.1 - Hypo-osmolality and hyponatremia Status: Acute (3) Urinary tract infection: Code(s): N39.0 - Urinary tract infection, site not specified Status: Acute Plan 48-year-old female with a history of anxiety and depression, seizures, chronic hyponatremia who presents to [facility] ER on 11/21/2024 complaint of dizziness fatigue brain fog urinary frequency and lower abdominal pressure. She has a history of multiple UTIs as well. The patient has been homeless for few months, she will be placed soon and a residence. She has not been able to see her PCP recently. She reports she is compliant with all of her medications spite of being homeless. She does feel she has been dehydrated the past few days it has been very hot out. Denies drug use. She has chronic hyponatremia however presented with a sodium of 120 which is lower than her usual. Urinalysis positive for nitrates, 4+ bacteria, some squamous cells. Abdomen pelvis CT demonstrating esophagitis/gastritis and mild urinary bladder wall thickening. CT head not demonstrate acute process. She received ceftriaxone, clonidine, 2 L normal saline bolus, morphine 4 mg IV x1, Zofran. Afterwards patient reported feeling significantly better. Symptoms have mostly resolved. ----- The patient's symptoms may be related to dehydration or hyponatremia. Status post fluid resuscitation her sodium increased from 120-127. This is around her baseline now and her symptoms have resolved. Will recheck another BMP now to ensure there is no over-correction. At this time she is receiving normal saline at 125 cc/hour. Drug urine screen pending, there is a delayed today because of laboratory downtime. Urinalysis abnormal although there squamous cells. However with the patient's complaint of urinary frequency. Continue ceftriaxone, blood and urine cultures are pending. She does take Tegretol and olanzapine. Both of which can cause hyponatremia. Will continue INTAKE CLINICIAN olanzapine however hold Tegretol. Pending Tegretol level. Patient would like to be full code. Normal saline infusion. SCDs. Ambulate with assistance. 11/22 continue IV antibioitcs will add pyridium to help with burning with urination Nephrology is following Time Spent With Patient Time with patient: 25 - 35 minutes Subjective Date/time seen: 11/22/24 12:14 Interval history: 48-year-old female with a history of anxiety and depression, seizures, chronic hyponatremia who presents to [facility] ER on 11/21/2024 complaint of dizziness fatigue brain fog urinary frequency and lower abdominal pressure. She has a history of multiple UTIs as well. The patient has been homeless for few months, she will be placed soon and a residence. She has not been able to see her PCP recently. She reports she is compliant with all of her medications spite of being homeless. She does feel she has been dehydrated the past few days it has been very hot out. Denies drug use. She has chronic hyponatremia however presented with a sodium of 120 which is lower than her usual. Urinalysis positive for nitrates, 4+ bacteria, some squamous cells. Abdomen pelvis CT demonstrating esophagitis/gastritis and mild urinary bladder wall thickening. CT head not demonstrate acute process. She received ceftriaxone, clonidine, 2 L normal saline bolus, morphine 4 mg IV x1, Zofran. 11/22- pt is seen and examined. She is pleasant, resting in bed. Denies any chest pain, reports burning with urination. Review of Systems Review of Systems: All systems reviewed & are unremarkable except as noted in HPI and below (Subjective) Exam Const: General: comfortable and no acute distress Other: A&O x3 HENMT: Mouth: Yes moist mucous membranes Eyes: Pupils: Equal, round and reactive pupils present Neck: Neck: supple Resp: Effort & Inspection: normal respiratory effort Auscultation: clear to auscultation bilaterally Cardio: Rate: regular rate Rhythm: regular rhythm Heart sounds: no gallops, no murmurs and no rubs GI: Inspection: non-distended Neuro: Cranial nerves: Yes Equal, round and reactive pupils present Motor exam (neuro): 5/5 motor strength present throughout Extrem: General: no edema Objective Data Vital Signs Vital Signs: Vital Signs - 24 hr 11/21/24 14:47 11/21/24 18:30 11/21/24 22:00 Temperature 97.6 F 95.9 F L Pulse Rate 72 60 73 Respiratory Rate 18 18 16 Blood Pressure 123/90 127/77 126/81 Pulse Oximetry 98 98 100 Oxygen Delivery Room Air 11/22/24 04:00 11/22/24 06:00 11/22/24 08:00 Temperature 95.6 F L Pulse Rate 61 64 Respiratory Rate 20 Blood Pressure 123/47 L Pulse Oximetry 96 Oxygen Delivery Room Air 11/22/24 08:00 Temperature Pulse Rate 53 L Respiratory Rate Blood Pressure Pulse Oximetry Oxygen Delivery Intake/Output Intake/Output: Intake & Output 11/19/24 11/20/24 11/21/24 11/22/24 23:59 23:59 23:59 23:59 Intake Total 2049 57 Balance 2049 Meds/Results Medications: Active Medications Generic Name Dose Route Start Last Admin Trade Name Freq PRN Reason Stop Dose Admin Albuterol 2 puff 11/21/24 22:34 Albuterol Sulfate (*Sp) Aerosol 1 Puff INHALATION Q6HRT PRN shortness of breath or wheezing Clonazepam 1 mg 11/21/24 23:00 11/22/24 09:04 Clonazepam (*Crx) 0.5 Mg Tablet PO 1 mg Q12HR CORTNEY Administration Gabapentin 300 mg 11/21/24 22:35 11/22/24 09:04 Gabapentin 300 Mg Capsule PO 300 mg Q12HR CORTNEY Administration Non-Formulary ( 1 each 11/22/24 09:00 11/22/24 09:05 Deutetrabenazine 30 PO 12/22/24 08:59 1 each Mg Oral Tablet, DAILY CORTNEY Administration Extended Release 24 Hr) Olanzapine 10 mg 11/22/24 09:00 11/22/24 09:05 Olanzapine 5 Mg Tablet PO 10 mg DAILY CORTNEY Administration Pantoprazole Sodium 40 mg 11/22/24 09:00 11/22/24 09:05 Pantoprazole 40 Mg Tablet PO 40 mg DAILY CORTNEY Administration Radiology Results: ITS Impressions Abdomen/Pelvis CT 11/21/24 19:02 IMPRESSION: Mild esophagitis/gastritis. Mild urinary bladder wall thickening, as can be seen with cystitis. Head CT 11/21/24 20:12 IMPRESSION: No acute intracranial process. CT findings may suggest the presence of acute sinusitis in the appropriate clinical context. Labs Labs: Laboratory Results - last 24 hr 11/21/24 11/21/24 11/21/24 16:42 17:50 18:42 WBC 5.4 RBC 4.08 L Hgb 12.5 Hct 36.9 L MCV 90.4 MCH 30.6 MCHC 33.9 RDW 11.9 Plt Count 274 MPV 8.2 Immature Gran % (Auto) 0.6 H Neut % (Auto) 56.8 Lymph % (Auto) 28.3 [place] % (Auto) 9.3 H Eos % (Auto) 4.3 Baso % (Auto) 0.7 Lymph # (Auto) 1.52 [place] # (Auto) 0.5 Eos # (Auto) 0.2 Baso # (Auto) 0.0 Abs Immat Gran (auto) 0.03 Absolute Neuts (auto) 3.1 Absolute Nucleated RBC 0.000 Nucleated RBC % 0.0 PT 13.2 INR 1.0 APTT 26.6 Sodium 120 L Potassium 4.5 Chloride 90 L Carbon Dioxide 23 Anion Gap 7 BUN 11 Creatinine 0.54 L 0.40 L Estim Creat Clear Calc 99 129 Estimated GFR > 60 > 60 Glucose 89 Lactic Acid Calcium 8.7 Magnesium Total Bilirubin 0.4 AST 32 ALT 20 Alkaline Phosphatase 122 Total Protein 7.0 Albumin 4.0 Lipase 42 Urine Color Yellow Urine Appearance Clear Urine pH 6.0 Ur Specific [place] 1.022 Urine Protein Negative Urine Glucose (UA) Negative Urine Ketones Negative Ur Blood (Man) Trace Urine Nitrate Positive H Urine Bilirubin Negative Urine Urobilinogen 1.0 Leukocyte Esterase Rfl Negative Urine RBC 3-5 H Urine WBC 0-5 Ur Squamous Epith Cells Occasional Urine Bacteria 4+ H Urine Casts 0-2 Ur Random Sodium 72 Urine Opiates Screen Negative Urine Methadone Screen Negative Ur Barbiturates Screen Negative Ur Phencyclidine Scrn Negative Ur Amphetamine Screen Positive A U Benzodiazepines Scrn Negative Urine Cocaine Screen Negative U Cannabinoids Screen Positive A 11/21/24 11/22/24 11/22/24 23:44 02:32 04:47 WBC RBC Hgb Hct MCV MCH MCHC RDW Plt Count MPV Immature Gran % (Auto) Neut % (Auto) Lymph % (Auto) [place] % (Auto) Eos % (Auto) Baso % (Auto) Lymph # (Auto) [place] # (Auto) Eos # (Auto) Baso # (Auto) Abs Immat Gran (auto) Absolute Neuts (auto) Absolute Nucleated RBC Nucleated RBC % PT INR APTT Sodium 127 L 130 L 133 L Potassium 3.5 4.2 4.3 Chloride 99 104 100 Carbon Dioxide 24 19 L 26 Anion Gap 4 7 7 BUN 7 8 8 Creatinine 0.54 L 0.50 L 0.61 L Estim Creat Clear Calc 103 111 93 Estimated GFR > 60 > 60 > 60 Glucose 120 H 80 91 Lactic Acid 0.7 Calcium 8.5 8.5 8.8 Magnesium 2.1 Total Bilirubin AST ALT Alkaline Phosphatase Total Protein Albumin Lipase Urine Color Urine Appearance Urine pH Ur Specific [place] Urine Protein Urine Glucose (UA) Urine Ketones Ur Blood (Man) Urine Nitrate Urine Bilirubin Urine Urobilinogen Leukocyte Esterase Rfl Urine RBC Urine WBC Ur Squamous Epith Cells Urine Bacteria Urine Casts Ur Random Sodium Urine Opiates Screen Urine Methadone Screen Ur Barbiturates Screen Ur Phencyclidine Scrn Ur Amphetamine Screen U Benzodiazepines Scrn Urine Cocaine Screen U Cannabinoids Screen 11/22/24 08:26 WBC RBC Hgb Hct MCV MCH MCHC RDW Plt Count MPV Immature Gran % (Auto) Neut % (Auto) Lymph % (Auto) [place] % (Auto) Eos % (Auto) Baso % (Auto) Lymph # (Auto) [place] # (Auto) Eos # (Auto) Baso # (Auto) Abs Immat Gran (auto) Absolute Neuts (auto) Absolute Nucleated RBC Nucleated RBC % PT INR APTT Sodium 129 L Potassium 4.1 Chloride 100 Carbon Dioxide 26 Anion Gap 3 L BUN 8 Creatinine 0.54 L Estim Creat Clear Calc 103 Estimated GFR > 60 Glucose 104 Lactic Acid Calcium 8.4 Magnesium Total Bilirubin AST ALT Alkaline Phosphatase Total Protein Albumin Lipase Urine Color Urine Appearance Urine pH Ur Specific [place] Urine Protein Urine Glucose (UA) Urine Ketones Ur Blood (Man) Urine Nitrate Urine Bilirubin Urine Urobilinogen Leukocyte Esterase Rfl Urine RBC Urine WBC Ur Squamous Epith Cells Urine Bacteria Urine Casts Ur Random Sodium Urine Opiates Screen Urine Methadone Screen Ur Barbiturates Screen Ur Phencyclidine Scrn Ur Amphetamine Screen U Benzodiazepines Scrn Urine Cocaine Screen U Cannabinoids Screen
[2024-11-22 12:52] LABS: Sodium 124 mmol/L (137-145)
[2024-11-22] MEDS: PHENAZOPYRIDINE HCL 100 MG TABLET 200 MG PO (16:20)
[2024-11-22 19:44] LABS: Sodium 123 mmol/L (137-145)
--- NOTE | 2024-11-22 19:51 | PC.NURSE ---
Dr. Brown notified of 1899 sodium level of 123. Previous result was 124. Per Dr. Brown, no change at this time, we will see what her level is in the morning.
[2024-11-23] VITALS (10 sets, daily range): BP systolic 92–151; BP diastolic 65–80; PULSE 44–54; RESP 16–18; TEMP 35.6–36.9; O2SAT 97–100
[2024-11-23 06:39] LABS: Anion Gap 4 mmol/L (4-12); Blood Urea Nitrogen 11 mg/dL (7-17); Calcium 8.7 mg/dL (8.4-10.2); Carbon Dioxide 24 mmol/L (22-30); Chloride 93 mmol/L (98-107); Estimated CRCL calculation 99 ml/min; Estimated Glomerular Filt Rate > 60; Glucose 91 mg/dL (65-110); Potassium 4.4 mmol/L (3.4-5.0); Sodium 121 mmol/L (137-145)
[2024-11-23 08:08] LABS: Carbamazepine (Tegretol) 10.3 ug/mL (4.0-12.0)
[2024-11-23] MEDS: clonazePAM (*CRX) 0.5 MG TABLET 1 MG PO ×2 (09:09→20:35)
[2024-11-23] MEDS: GABAPENTIN 300 MG CAPSULE PO ×2 (09:10→20:34)
[2024-11-23] MEDS: PHENAZOPYRIDINE HCL 100 MG TABLET 200 MG PO ×3 (09:10→17:20)
[2024-11-23] MEDS: PANTOPRAZOLE 40 MG TABLET PO (09:10)
[2024-11-23] MEDS: DEUTETRABENAZINE 30 MG 1 EACH PO (09:14)
--- NOTE | 2024-11-23 11:01 | PM.PNNEP ---
Progress Note: A&P Assessment and Plan (1) Hyponatremia: Code(s): E87.1 - Hypo-osmolality and hyponatremia Status: Acute Assessment and Plan: The patient has low sodium. I suspect that this is probably chronic. TSH is normal. Cortisol is low. Will check a Cortrosyn stim test. The SPEP is pending CT brain was done so no space occupying lesion causing the hyponatremia. The patient does not have a history of cancer. She should continue to be up-to-date with cancer surveillance though. She has asthma which does not usually cause hyponatremia. chest x-ray shows NAD Most likely carbamazepine and olanzapine are contributing to the hyponatremia. Patient's sodium level did increase faster than the recommended rate. sodium level was brought back down is now down to 121. Will continue with fluid restriction alone. Will recheck another sodium level this afternoon and consider adding Lasix and salt tablets. Discussed at length with JUNIE Whelan. (2) Urinary tract infection: Code(s): N39.0 - Urinary tract infection, site not specified Status: Acute Assessment and Plan: The patient has dysuria. Her UA shows only 3-5 red cells but no white cells. Urine culture is negative this time. Certainly she has had plenty of bladder infections over the last few months. She should probably follow up with Urology as an outpatient to look for causes for frequent bladder infections. (3) Seizures: Code(s): R56.9 - Unspecified convulsions Status: Acute Assessment and Plan: The patient is on carbamazepine. Level is therapeutic. JUNIE whelan held carbamazepine because of the low sodium. Neurology consult pending to help with transition or just continued administration of carbamazepine. Either way is fine with me. If she continues the medication, we can just fluid restrict to keep the sodium level okay but it will need monitoring. (4) Anxiety: Code(s): F41.9 - Anxiety disorder, unspecified Status: Acute Assessment and Plan: The patient is on olanzapine. Subjective Date/time seen: 11/23/24 11:01 Interval history: patient is very anxious. nervous about the carbamazepine being stopped. No shortness of breath or chest pain. Review of Systems Cardiovascular: Cardiovascular: Reports no additional cardiovascular complaints Respiratory: Respiratory: Reports no additional respiratory complaints Gastrointestinal: Gastrointestinal: Reports no additional gastrointestinal complaints Genitourinary: Genitourinary: Reports no additional female genitourinary complaints Exam Narrative: WDWN in NAD skin no rash head ncat lungs clear cor reg no rub abd BS+ nontender and soft ext no edema. Objective Data Vital Signs Vital Signs: Vital Signs - 24 hr 11/22/24 12:00 11/22/24 14:00 11/22/24 16:00 Temperature 96.7 F L Pulse Rate 54 L 52 L 52 L Respiratory Rate 16 Blood Pressure 110/62 Pulse Oximetry 100 Oxygen Delivery 11/22/24 20:00 11/22/24 20:00 11/22/24 21:35 Temperature 98.8 F Pulse Rate 58 L 49 L Respiratory Rate 18 Blood Pressure 117/65 Pulse Oximetry 99 Oxygen Delivery Room Air 11/23/24 00:00 11/23/24 04:00 11/23/24 06:00 Temperature 96.1 F L Pulse Rate 48 L 48 L 45 L Respiratory Rate 18 Blood Pressure 138/80 Pulse Oximetry 100 Oxygen Delivery 11/23/24 08:00 Temperature Pulse Rate Respiratory Rate Blood Pressure Pulse Oximetry Oxygen Delivery Room Air Intake/Output Intake/Output: Intake & Output 11/20/24 11/21/24 11/22/24 11/23/24 23:59 23:59 23:59 23:59 Intake Total 2049 573 120 Balance 2049 573 120 Meds/Results Medications: Active Medications Generic Name Dose Route Start Last Admin Trade Name Freq PRN Reason Stop Dose Admin Albuterol 2 puff 11/21/24 22:34 Albuterol Sulfate (*Sp) Aerosol 1 Puff INHALATION Q6HRT PRN shortness of breath or wheezing Clonazepam 1 mg 11/21/24 23:00 11/23/24 09:09 Clonazepam (*Crx) 0.5 Mg Tablet PO 1 mg Q12HR CORTNEY Administration Gabapentin 300 mg 11/21/24 22:35 11/23/24 09:10 Gabapentin 300 Mg Capsule PO 300 mg Q12HR CORTNEY Administration Non-Formulary ( 1 each 11/22/24 09:00 11/23/24 09:14 Deutetrabenazine 30 PO 12/22/24 08:59 1 each Mg Oral Tablet, DAILY CORTNEY Administration Extended Release 24 Hr) Olanzapine 10 mg 11/22/24 09:00 11/23/24 09:14 Olanzapine 5 Mg Tablet PO 10 mg DAILY CORTNEY Administration Pantoprazole Sodium 40 mg 11/22/24 09:00 11/23/24 09:10 Pantoprazole 40 Mg Tablet PO 40 mg DAILY CORTNEY Administration Phenazopyridine HCl 200 mg 11/22/24 17:00 11/23/24 09:10 Phenazopyridine Hcl 100 Mg Tablet PO 11/24/24 16:59 200 mg TIDWM CORTNEY Administration Radiology Results: ITS Impressions Abdomen/Pelvis CT 11/21/24 19:02 IMPRESSION: Mild esophagitis/gastritis. Mild urinary bladder wall thickening, as can be seen with cystitis. Head CT 11/21/24 20:12 IMPRESSION: No acute intracranial process. CT findings may suggest the presence of acute sinusitis in the appropriate clinical context. Chest X-Ray 11/22/24 12:51 IMPRESSION: 1: NO ACUTE CARDIOPULMONARY DISEASE. Labs Labs: Laboratory Results - last 24 hr 11/21/24 11/21/24 11/22/24 16:42 23:44 11:59 Sodium 124 L Potassium Chloride Carbon Dioxide Anion Gap BUN Creatinine Estim Creat Clear Calc Estimated GFR Glucose Serum Osmolality Cancelled Calcium Random Cortisol 2.44 Ur Random Creatinine 140.8 Carbamazepine 10.3 11/22/24 11/23/24 19:27 05:26 Sodium 123 L 121 L Potassium 4.4 Chloride 93 L Carbon Dioxide 24 Anion Gap 4 BUN 11 Creatinine 0.57 L Estim Creat Clear Calc 99 Estimated GFR > 60 Glucose 91 Serum Osmolality Calcium 8.7 Random Cortisol Ur Random Creatinine Carbamazepine
[2024-11-23 11:08] LABS: Chloride, Urine 78 mmol/L (Not Estab.)
--- NOTE | 2024-11-23 11:12 | PM.IMPN ---
Progress Note: A&P Assessment and Plan (1) Hyponatremia: Code(s): E87.1 - Hypo-osmolality and hyponatremia Status: Acute (2) Acute hyponatremia: Code(s): E87.1 - Hypo-osmolality and hyponatremia Status: Acute (3) Urinary tract infection: Code(s): N39.0 - Urinary tract infection, site not specified Status: Acute Plan 48-year-old female with a history of anxiety and depression, seizures, chronic hyponatremia who presents to [facility] ER on 11/21/2024 complaint of dizziness fatigue brain fog urinary frequency and lower abdominal pressure. She has a history of multiple UTIs as well. The patient has been homeless for few months, she will be placed soon and a residence. She has not been able to see her PCP recently. She reports she is compliant with all of her medications spite of being homeless. She does feel she has been dehydrated the past few days it has been very hot out. Denies drug use. She has chronic hyponatremia however presented with a sodium of 120 which is lower than her usual. Urinalysis positive for nitrates, 4+ bacteria, some squamous cells. Abdomen pelvis CT demonstrating esophagitis/gastritis and mild urinary bladder wall thickening. CT head not demonstrate acute process. She received ceftriaxone, clonidine, 2 L normal saline bolus, morphine 4 mg IV x1, Zofran. Afterwards patient reported feeling significantly better. Symptoms have mostly resolved. ----- The patient's symptoms may be related to dehydration or hyponatremia. Status post fluid resuscitation her sodium increased from 120-127. This is around her baseline now and her symptoms have resolved. Will recheck another BMP now to ensure there is no over-correction. At this time she is receiving normal saline at 125 cc/hour. Drug urine screen pending, there is a delayed today because of laboratory downtime. Urinalysis abnormal although there squamous cells. However with the patient's complaint of urinary frequency. Continue ceftriaxone, blood and urine cultures are pending. She does take Tegretol and olanzapine. Both of which can cause hyponatremia. 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 Pending Tegretol level. Patient would like to be full code. Normal saline infusion. SCDs. Ambulate with assistance. 11/22 continue IV antibioitcs will add pyridium to help with burning with urination Nephrology is following 11/[address] Brown will consult neurology to help with antiseizure meds Fluid restrictions for now continue iv antibiotics pyridium ordered for urinary discomfort Time Spent With Patient Time with patient: 25 - 35 minutes Subjective Date/time seen: 11/23/24 11:12 Interval history: Pt is seen and examined. She is resting in bed, anxious about her meds and possible changes. Discussed care with Dr Brown, will consult neurology to help with antiseizure meds. Fluid restrictions for now Review of Systems Review of Systems: All systems reviewed & are unremarkable except as noted in HPI and below (Subjective) Exam Const: General: comfortable and no acute distress Other: A&O x3 HENMT: Mouth: Yes moist mucous membranes Eyes: Pupils: Equal, round and reactive pupils present Neck: Neck: supple Resp: Effort & Inspection: normal respiratory effort Auscultation: clear to auscultation bilaterally Cardio: Rate: regular rate Rhythm: regular rhythm Heart sounds: no gallops, no murmurs and no rubs GI: Inspection: non-distended Neuro: Cranial nerves: Yes Equal, round and reactive pupils present Motor exam (neuro): 5/5 motor strength present throughout Extrem: General: no edema Objective Data Vital Signs Vital Signs: Vital Signs - 24 hr 11/22/24 12:00 11/22/24 14:00 11/22/24 16:00 Temperature 96.7 F L Pulse Rate 54 L 52 L 52 L Respiratory Rate 16 Blood Pressure 110/62 Pulse Oximetry 100 Oxygen Delivery 11/22/24 20:00 11/22/24 20:00 11/22/24 21:35 Temperature 98.8 F Pulse Rate 58 L 49 L Respiratory Rate 18 Blood Pressure 117/65 Pulse Oximetry 99 Oxygen Delivery Room Air 11/23/24 00:00 11/23/24 04:00 11/23/24 06:00 Temperature 96.1 F L Pulse Rate 48 L 48 L 45 L Respiratory Rate 18 Blood Pressure 138/80 Pulse Oximetry 100 Oxygen Delivery 11/23/24 08:00 Temperature Pulse Rate Respiratory Rate Blood Pressure Pulse Oximetry Oxygen Delivery Room Air Intake/Output Intake/Output: Intake & Output 11/20/24 11/21/24 11/22/24 11/23/24 23:59 23:59 23:59 23:59 Intake Total 2049 573 120 Balance 2049 573 120 Meds/Results Medications: Active Medications Generic Name Dose Route Start Last Admin Trade Name Freq PRN Reason Stop Dose Admin Albuterol 2 puff 11/21/24 22:34 Albuterol Sulfate (*Sp) Aerosol 1 Puff INHALATION Q6HRT PRN shortness of breath or wheezing Clonazepam 1 mg 11/21/24 23:00 11/23/24 09:09 Clonazepam (*Crx) 0.5 Mg Tablet PO 1 mg Q12HR CORTNEY Administration Cosyntropin 0.25 mg 11/23/24 11:07 Cosyntropin 0.25 Mg/Ml Vial IV PUSH 11/23/24 11:08 ONCE STA Gabapentin 300 mg 11/21/24 22:35 11/23/24 09:10 Gabapentin 300 Mg Capsule PO 300 mg Q12HR CORTNEY Administration Non-Formulary ( 1 each 11/22/24 09:00 11/23/24 09:14 Deutetrabenazine 30 PO 12/22/24 08:59 1 each Mg Oral Tablet, DAILY CORTNEY Administration Extended Release 24 Hr) Olanzapine 10 mg 11/22/24 09:00 11/23/24 09:14 Olanzapine 5 Mg Tablet PO 10 mg DAILY CORTNEY Administration Pantoprazole Sodium 40 mg 11/22/24 09:00 11/23/24 09:10 Pantoprazole 40 Mg Tablet PO 40 mg DAILY CORTNEY Administration Phenazopyridine HCl 200 mg 11/22/24 17:00 11/23/24 09:10 Phenazopyridine Hcl 100 Mg Tablet PO 11/24/24 16:59 200 mg TIDWM CORTNEY Administration Radiology Results: ITS Impressions Abdomen/Pelvis CT 11/21/24 19:02 IMPRESSION: Mild esophagitis/gastritis. Mild urinary bladder wall thickening, as can be seen with cystitis. Head CT 11/21/24 20:12 IMPRESSION: No acute intracranial process. CT findings may suggest the presence of acute sinusitis in the appropriate clinical context. Chest X-Ray 11/22/24 12:51 IMPRESSION: 1: NO ACUTE CARDIOPULMONARY DISEASE. Labs Labs: Laboratory Results - last 24 hr 11/21/24 11/21/24 11/22/24 16:42 23:44 11:59 Sodium 124 L Potassium Chloride Carbon Dioxide Anion Gap BUN Creatinine Estim Creat Clear Calc Estimated GFR Glucose Serum Osmolality Cancelled Calcium Random Cortisol 2.44 Ur Random Creatinine 140.8 Urine Chloride 78 Carbamazepine 10.3 11/22/24 11/23/24 19:27 05:26 Sodium 123 L 121 L Potassium 4.4 Chloride 93 L Carbon Dioxide 24 Anion Gap 4 BUN 11 Creatinine 0.57 L Estim Creat Clear Calc 99 Estimated GFR > 60 Glucose 91 Serum Osmolality Calcium 8.7 Random Cortisol Ur Random Creatinine Urine Chloride Carbamazepine
[2024-11-23] MEDS: COSYNTROPIN 0.25 MG/ML VIAL IV PUSH (11:45)
--- NOTE | 2024-11-23 18:36 | PC.NURSE ---
provider to nurse communication stated to order timed cortisol levels after cortrosyn was administered. the med was explained to the patient and she was agreeable to for testing. pt was informed we do lab draws after administering of med. when lab came in, she refused lab draw. lab told this nurse she is refusing and left the floor. this nurse educated pt on the testing and the purpose of lab draws. pt agreeable. lab came back for the 60 minute test and was refused again. pt educated again and states that she is unhappy because they come when she is trying to nap
[2024-11-24] VITALS (10 sets, daily range): BP systolic 115–124; BP diastolic 55–81; PULSE 48–86; RESP 18; TEMP 35.9–36.6; O2SAT 96–99
[2024-11-24 06:02] LABS: Anion Gap 7 mmol/L (4-12); Blood Urea Nitrogen 15 mg/dL (7-17); Calcium 8.9 mg/dL (8.4-10.2); Carbon Dioxide 21 mmol/L (22-30); Chloride 103 mmol/L (98-107); Estimated CRCL calculation 96 ml/min; Estimated Glomerular Filt Rate > 60; Glucose 92 mg/dL (65-110); Potassium 4.1 mmol/L (3.4-5.0); Sodium 131 mmol/L (137-145)
[2024-11-24] MEDS: PANTOPRAZOLE 40 MG TABLET PO (08:47)
[2024-11-24] MEDS: clonazePAM (*CRX) 0.5 MG TABLET 1 MG PO ×2 (08:48→21:21)
[2024-11-24] MEDS: GABAPENTIN 300 MG CAPSULE PO ×2 (08:48→21:21)
[2024-11-24] MEDS: PHENAZOPYRIDINE HCL 100 MG TABLET 200 MG PO ×2 (08:48→12:59)
[2024-11-24] MEDS: DEUTETRABENAZINE 30 MG 1 EACH PO (08:49)
--- NOTE | 2024-11-24 09:40 | WPDNEURCNPN ---
Assessment and Plan Assessment and plan (1) Metabolic encephalopathy: Code(s): G93.41 - Metabolic encephalopathy Status: Acute Plan 1. History of anxiety with depression 2. History of seizure 3. Chronic hyponatremia number generalized symptomatology of fatigue and dizziness most likely metabolic in origin CT scan revealed any bleed or stroke treatment metabolic as being done with metabolic encephalopathy. Consult date: 11/25/24 HPI: Thom Zamora is a 48 year old female Admitted to the hospital through the emergency room for the complaints of dizziness, generalized fatigue, and brain fog in addition to the urinary frequency and lower abdominal discomfort. At present she is homeless, her medications particularly included olanzapine 10mg daily, gabapentin 300mg q.12 hours in addition to oxybutynin and pantoprazole. She is reportedly allergic to sulfa and hydroxychloroquine. She has been treated in the past for the vitamin D deficiency seizures depression, anxiety, and inflammatory arthropathy. She Does not consume alcohol and her initial exam in the emergency room was nonfocal. 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 Review of Systems Review of Systems: All systems reviewed & are unremarkable except as noted in HPI and below PMFSH Past Medical History Medical History Vitamin D deficiency Inflammatory arthropathy ESTHER positive Anxiety Asthma Claustrophobia Seizures Depression Surgical History Surgical History History of tubal ligation History of History of hernia repair Family History Family History Mother Family history of mental disorder Father Family history of diabetes mellitus in first degree relative Family history of coronary artery disease Other Arthritis Asthma Cancer Depression Diabetes mellitus Heart disease High cholesterol Hypertension Social History Social History Smoking status: Never smoker Tobacco type: cigarettes Additional smoking assessment comments: cigarettes 1/2 ppd x 5 1/2 years Alcohol intake: never Substance use: current Substance use type: marijuana Other substance usage details: smoking and eatables daily Last use: 11/20/2024 Do You Feel Safe in your Home?: Yes Lack of Transportation: YES Lack of Food: Often True Current Housing: I Do Not Have Housing Concerned About Future Housing: YES Difficulty Paying Gas/Electric Bills: YES Difficulty Paying for Meds: YES Currently Unemployed: YES Education: High School Diploma/GED Difficulty w/ Childcare or Family Care: No Living arrangements: with roommate(s) Gender identity (if verbalized by the patient): Female Spiritual care concerns: No Meds Home Medications and Allergies Home Medications ?Medication ?Instructions ?Recorded ?Confirmed ?Type albuterol sulfate 90 mcg/actuation 2 puff inhalation QID PRN 07/06/19 11/21/24 Rx aerosol inhaler shortness of breath or wheezing #6.7 grams carbamazepine 200 mg tablet 200 mg PO .COMPLEX #180 tabs 12/28/20 11/21/24 Rx clonazepam 1 mg tablet 1 mg PO BID #30 tabs 01/29/21 11/21/24 Rx olanzapine 10 mg tablet 10 mg PO DAILY 01/11/22 11/21/24 History gabapentin 300 mg capsule 300 mg PO Q12H 10/23/24 11/21/24 History oxybutynin chloride 10 mg 10 mg PO DAILY 10/23/24 11/21/24 History tablet,extended release 24 hr pantoprazole 40 mg tablet,delayed 40 mg PO DAILY 10/23/24 11/21/24 History release deutetrabenazine 24 mg 30 mg PO DAILY 11/21/24 11/21/24 History tablet,extended release 24 hr (Austedo XR) nitrofurantoin 100 mg PO Q12HR #10 caps 11/24/24 Rx monohydrate/macrocrystals 100 mg capsule (Macrobid) Allergies Allergy/AdvReac Type Severity Reaction Status Date / Time hydroxychloroquine Allergy Mild Agitated Verified 11/21/24 22:18 peanut Allergy Anaphylaxis Verified 11/21/24 22:18 Sulfa (Sulfonamide AdvReac Muscle Pain Verified 11/21/24 22:18 Antibiotics) Vital Signs Vital Signs - 24 hr 11/23/24 12:00 11/23/24 14:00 11/23/24 16:00 Temperature 35.9 C L Pulse Rate 44 L 54 L 54 L Respiratory Rate 18 Blood Pressure 92/65 L Pulse Oximetry 98 Oxygen Delivery 11/23/24 20:00 11/23/24 20:34 11/23/24 21:59 Temperature 36.9 C Pulse Rate 48 L 49 L Respiratory Rate 16 Blood Pressure 151/73 H Pulse Oximetry 97 97 Oxygen Delivery Room Air 11/24/24 00:05 11/24/24 04:01 11/24/24 06:00 Temperature 36.6 C Pulse Rate 58 L 57 L 86 Respiratory Rate 18 Blood Pressure 122/55 L Pulse Oximetry 96 Oxygen Delivery Exam Narrative: revealed her to be awake alert in no acute distress head normocephalic with no bruit, ear nose throat examination normal, neck supple with no meningeal signs, heart regular with no murmur, lungs clear to auscultation with no rhonchi or crepitations, abdomen is soft nontender with normal bowel sounds, neurologically she is awake alert follow the instructions, his speech not dysphasic not dysarthric not dysphonic pupils round regular feels the vision full extraocular movements full no nystagmus facial sensation intact face symmetrical tongue midline motor examination revealed her to have fairly normal and symmetrical strength in upper and lower extremities proximally and distally with deep tendon reflexes being symmetrical sluggish plantar responses downgoing is no evidence of gross cerebellar deficit. Results Labs 11/21/24 17:50 11/25/24 06:00 Labs: BMP 11/24/24 05:26 Sodium 131 L Potassium 4.1 Chloride 103 Carbon Dioxide 21 L BUN 15 Creatinine 0.59 L Glucose 92 Calcium 8.9
--- NOTE | 2024-11-24 10:10 | PM.PNNEP ---
Progress Note: A&P Assessment and Plan (1) Hyponatremia: Code(s): E87.1 - Hypo-osmolality and hyponatremia Status: Acute Assessment and Plan: The patient has low sodium. I suspect that this is probably chronic. TSH is normal. Cortisol is low. Will check a Cortrosyn stim test. The SPEP is pending CT brain was done so no space occupying lesion causing the hyponatremia. The patient does not have a history of cancer. She should continue to be up-to-date with cancer surveillance though. She has asthma which does not usually cause hyponatremia. chest x-ray shows NAD Most likely carbamazepine and olanzapine are contributing to the hyponatremia. Patient's sodium level did increase faster than the recommended rate. sodium level was brought back down to 121. then it promptly cecil to 131. One could make the argument that since it started at 120 then 131 would be acceptable, however it was 121 yesterday. It is a complex mixture of acute and chronic hyponatremia. I am going to give a small amount of D5W just to bring the sodium level down to about 128 or 129 today. We will recheck the sodium level after the D5W to make sure that the goal is attained. Will continue with fluid restriction alone. (2) Urinary tract infection: Code(s): N39.0 - Urinary tract infection, site not specified Status: Acute Assessment and Plan: The patient has dysuria. Her UA shows only 3-5 red cells but no white cells. Urine culture is negative this time. Certainly she has had plenty of bladder infections over the last few months. She should probably follow up with Urology as an outpatient to look for causes for frequent bladder infections. (3) Seizures: Code(s): R56.9 - Unspecified convulsions Status: Acute Assessment and Plan: The patient is on carbamazepine. Level is therapeutic. Neurology did not see the patient yesterday. Will restart carbamazepine in till they can render an opinion about what to do going forward. As mentioned above I feel we can work around the carbamazepine with regards to the sodium if it is best that he she stays on this since it has controlled her seizures for so long. (4) Anxiety: Code(s): F41.9 - Anxiety disorder, unspecified Status: Acute Assessment and Plan: The patient is on olanzapine. Subjective Date/time seen: 11/24/24 10:10 Interval history: Patient feels okay. She seems a little less anxious today. Eager for discharge when it can happen Exam Narrative: WDWN in NAD skin no rash head ncat lungs clear cor reg no rub abd BS+ nontender and soft ext no edema. Objective Data Vital Signs Vital Signs: Vital Signs - 24 hr 11/23/24 12:00 11/23/24 14:00 11/23/24 16:00 Temperature 96.7 F L Pulse Rate 44 L 54 L 54 L Respiratory Rate 18 Blood Pressure 92/65 L Pulse Oximetry 98 Oxygen Delivery 11/23/24 20:00 11/23/24 20:34 11/23/24 21:59 Temperature 98.4 F Pulse Rate 48 L 49 L Respiratory Rate 16 Blood Pressure 151/73 H Pulse Oximetry 97 97 Oxygen Delivery Room Air 11/24/24 00:05 11/24/24 04:01 11/24/24 06:00 Temperature 97.9 F Pulse Rate 58 L 57 L 86 Respiratory Rate 18 Blood Pressure 122/55 L Pulse Oximetry 96 Oxygen Delivery Intake/Output Intake/Output: Intake & Output 11/21/24 11/22/24 11/23/24 11/24/24 23:59 23:59 23:59 23:59 Intake Total 2049 573 240 Output Total 3 Balance 2049 573 240 -3 Meds/Results Medications: Active Medications Generic Name Dose Route Start Last Admin Trade Name Freq PRN Reason Stop Dose Admin Albuterol 2 puff 11/21/24 22:34 Albuterol Sulfate (*Sp) Aerosol 1 Puff INHALATION Q6HRT PRN shortness of breath or wheezing Carbamazepine 600 mg 11/24/24 09:00 11/24/24 08:46 Carbamazepine Xr 200 Mg Tab.Er.12h PO 600 mg Q12HR CORTNEY Administration Clonazepam 1 mg 11/21/24 23:00 11/24/24 08:48 Clonazepam (*Crx) 0.5 Mg Tablet PO 1 mg Q12HR CORTNEY Administration Gabapentin 300 mg 11/21/24 22:35 11/24/24 08:48 Gabapentin 300 Mg Capsule PO 300 mg Q12HR CORTNEY Administration Dextrose 1,000 mls @ 270 mls/hr 11/24/24 09:20 Dextrose 5% 1,000 Ml IV CONT 11/24/24 11:19 .Q3H43M CORTNEY Non-Formulary ( 1 each 11/22/24 09:00 11/24/24 08:49 Deutetrabenazine 30 PO 12/22/24 08:59 1 each Mg Oral Tablet, DAILY CORTNEY Administration Extended Release 24 Hr) Olanzapine 10 mg 11/22/24 09:00 11/24/24 08:48 Olanzapine 5 Mg Tablet PO 10 mg DAILY CORTNEY Administration Pantoprazole Sodium 40 mg 11/22/24 09:00 11/24/24 08:47 Pantoprazole 40 Mg Tablet PO 40 mg DAILY CORTNEY Administration Phenazopyridine HCl 200 mg 11/22/24 17:00 11/24/24 08:48 Phenazopyridine Hcl 100 Mg Tablet PO 11/24/24 16:59 200 mg TIDWM CORTNEY Administration Radiology Results: ITS Impressions Abdomen/Pelvis CT 11/21/24 19:02 IMPRESSION: Mild esophagitis/gastritis. Mild urinary bladder wall thickening, as can be seen with cystitis. Head CT 11/21/24 20:12 IMPRESSION: No acute intracranial process. CT findings may suggest the presence of acute sinusitis in the appropriate clinical context. Chest X-Ray 11/22/24 12:51 IMPRESSION: 1: NO ACUTE CARDIOPULMONARY DISEASE. Labs Labs: Laboratory Results - last 24 hr 11/21/24 11/23/24 11/24/24 16:42 05:20 05:26 Sodium 131 L Potassium 4.1 Chloride 103 Carbon Dioxide 21 L Anion Gap 7 BUN 15 Creatinine 0.59 L Estim Creat Clear Calc 96 Estimated GFR > 60 Glucose 92 Calcium 8.9 Cortisol Baseline 3.19 Urine Chloride 78
[2024-11-24] MEDS: DEXTROSE 5% 1,000 ML 1,000 ML 270 ML IV CONT (10:40)
--- NOTE | 2024-11-24 11:19 | PM.IMPN ---
Progress Note: A&P Assessment and Plan (1) Hyponatremia: Code(s): E87.1 - Hypo-osmolality and hyponatremia Status: Acute (2) Acute hyponatremia: Code(s): E87.1 - Hypo-osmolality and hyponatremia Status: Acute (3) Urinary tract infection: Code(s): N39.0 - Urinary tract infection, site not specified Status: Acute Plan 48-year-old female with a history of anxiety and depression, seizures, chronic hyponatremia who presents to [facility] ER on 11/21/2024 complaint of dizziness fatigue brain fog urinary frequency and lower abdominal pressure. She has a history of multiple UTIs as well. The patient has been homeless for few months, she will be placed soon and a residence. She has not been able to see her PCP recently. She reports she is compliant with all of her medications spite of being homeless. She does feel she has been dehydrated the past few days it has been very hot out. Denies drug use. She has chronic hyponatremia however presented with a sodium of 120 which is lower than her usual. Urinalysis positive for nitrates, 4+ bacteria, some squamous cells. Abdomen pelvis CT demonstrating esophagitis/gastritis and mild urinary bladder wall thickening. CT head not demonstrate acute process. She received ceftriaxone, clonidine, 2 L normal saline bolus, morphine 4 mg IV x1, Zofran. Afterwards patient reported feeling significantly better. Symptoms have mostly resolved. ----- The patient's symptoms may be related to dehydration or hyponatremia. Status post fluid resuscitation her sodium increased from 120-127. This is around her baseline now and her symptoms have resolved. Will recheck another BMP now to ensure there is no over-correction. At this time she is receiving normal saline at 125 cc/hour. Drug urine screen pending, there is a delayed today because of laboratory downtime. Urinalysis abnormal although there squamous cells. However with the patient's complaint of urinary frequency. Continue ceftriaxone, blood and urine cultures are pending. She does take Tegretol and olanzapine. Both of which can cause hyponatremia. 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 Pending Tegretol level. Patient would like to be full code. Normal saline infusion. SCDs. Ambulate with assistance. 11/22 continue IV antibioitcs will add pyridium to help with burning with urination Nephrology is following 11/[address] Brown will consult neurology to help with antiseizure meds Fluid restrictions for now continue iv antibiotics pyridium ordered for urinary discomfort 11/24 na corrected t fast. D5W was ordered per Dr Baltazar. Will repeat Na after, if around 128, ok to discharge with a close f/u with neurology and pcp. continue PO antibiotics for UTI. advised to f/u with urologist due to frequent UTI. Time Spent With Patient Time with patient: 25 - 35 minutes Subjective Date/time seen: 11/24/24 11:19 Interval history: Pt is seen and examined today. She seems a little less anxious today. Nephrology is following. if 1pm sodium is around 128, she can be discharged. Discussed with RN, NA will not be drawn until closer to to 2.30 Review of Systems Review of Systems: All systems reviewed & are unremarkable except as noted in HPI and below (Subjective) Exam Const: General: comfortable and no acute distress Other: A&O x3 HENMT: Mouth: Yes moist mucous membranes Eyes: Pupils: Equal, round and reactive pupils present Neck: Neck: supple Resp: Effort & Inspection: normal respiratory effort Auscultation: clear to auscultation bilaterally Cardio: Rate: regular rate Rhythm: regular rhythm Heart sounds: no gallops, no murmurs and no rubs GI: Inspection: non-distended Neuro: Cranial nerves: Yes Equal, round and reactive pupils present Motor exam (neuro): 5/5 motor strength present throughout Extrem: General: no edema Objective Data Vital Signs Vital Signs: Vital Signs - 24 hr 11/23/24 12:00 11/23/24 14:00 11/23/24 16:00 Temperature 96.7 F L Pulse Rate 44 L 54 L 54 L Respiratory Rate 18 Blood Pressure 92/65 L Pulse Oximetry 98 Oxygen Delivery 11/23/24 20:00 11/23/24 20:34 11/23/24 21:59 Temperature 98.4 F Pulse Rate 48 L 49 L Respiratory Rate 16 Blood Pressure 151/73 H Pulse Oximetry 97 97 Oxygen Delivery Room Air 11/24/24 00:05 11/24/24 04:01 11/24/24 06:00 Temperature 97.9 F Pulse Rate 58 L 57 L 86 Respiratory Rate 18 Blood Pressure 122/55 L Pulse Oximetry 96 Oxygen Delivery 11/24/24 08:48 Temperature Pulse Rate Respiratory Rate Blood Pressure Pulse Oximetry Oxygen Delivery Room Air Intake/Output Intake/Output: Intake & Output 11/21/24 11/22/24 11/23/24 11/24/24 23:59 23:59 23:59 23:59 Intake Total 2049 573 240 240 Output Total 3 Balance 2049 573 240 237 Meds/Results Medications: Active Medications Generic Name Dose Route Start Last Admin Trade Name Freq PRN Reason Stop Dose Admin Albuterol 2 puff 11/21/24 22:34 Albuterol Sulfate (*Sp) Aerosol 1 Puff INHALATION Q6HRT PRN shortness of breath or wheezing Carbamazepine 600 mg 11/24/24 09:00 11/24/24 08:46 Carbamazepine Xr 200 Mg Tab.Er.12h PO 600 mg Q12HR CORTNEY Administration Clonazepam 1 mg 11/21/24 23:00 11/24/24 08:48 Clonazepam (*Crx) 0.5 Mg Tablet PO 1 mg Q12HR CORTNEY Administration Gabapentin 300 mg 11/21/24 22:35 11/24/24 08:48 Gabapentin 300 Mg Capsule PO 300 mg Q12HR CORTNEY Administration Non-Formulary ( 1 each 11/22/24 09:00 11/24/24 08:49 Deutetrabenazine 30 PO 12/22/24 08:59 1 each Mg Oral Tablet, DAILY CORTNEY Administration Extended Release 24 Hr) Olanzapine 10 mg 11/22/24 09:00 11/24/24 08:48 Olanzapine 5 Mg Tablet PO 10 mg DAILY CORTNEY Administration Pantoprazole Sodium 40 mg 11/22/24 09:00 11/24/24 08:47 Pantoprazole 40 Mg Tablet PO 40 mg DAILY OCRTNEY Administration Phenazopyridine HCl 200 mg 11/22/24 17:00 11/24/24 08:48 Phenazopyridine Hcl 100 Mg Tablet PO 11/24/24 16:59 200 mg TIDWM CORTNEY Administration Radiology Results: ITS Impressions Abdomen/Pelvis CT 11/21/24 19:02 IMPRESSION: Mild esophagitis/gastritis. Mild urinary bladder wall thickening, as can be seen with cystitis. Head CT 11/21/24 20:12 IMPRESSION: No acute intracranial process. CT findings may suggest the presence of acute sinusitis in the appropriate clinical context. Chest X-Ray 11/22/24 12:51 IMPRESSION: 1: NO ACUTE CARDIOPULMONARY DISEASE. Labs Labs: Laboratory Results - last 24 hr 11/23/24 11/24/24 05:20 05:26 Sodium 131 L Potassium 4.1 Chloride 103 Carbon Dioxide 21 L Anion Gap 7 BUN 15 Creatinine 0.59 L Estim Creat Clear Calc 96 Estimated GFR > 60 Glucose 92 Calcium 8.9 Cortisol Baseline 3.19
[2024-11-24] MEDS: NITROFURANTOIN MONOHYD MACROCR 100 MG CAP PO ×2 (12:59→21:20)
[2024-11-24 14:56] LABS: Sodium 130 mmol/L (137-145)
[2024-11-24] MEDS: DEXTROSE 5% 1,000 ML 1,000 ML 250 ML IV CONT (16:25)
[2024-11-24 21:22] LABS: Sodium 132 mmol/L (137-145)
--- NOTE | 2024-11-24 22:35 | PC.NURSE ---
Patient had complaints of current IV hurting, pacing in room, crying, yelling requested IV taken out or she would snatch it out. Patient being treated for hyponatremia, provided education on need for IV access, sign and symptoms she may experience with low sodium and would need IV to give medications or fluids as needed to improve levels. I discussed last sodium level was 130, with D5W fluids brought level to 132 and normal range for sodium is 137-145. I asked pt if it would be okay if I started another IV access in different location. Patient stated, I don't know why I need new IV, I don't want to be poked and probed on, I just want to go to sleep and think about it. Then changed her mind and said, no I don't want another IV started, they are not listening to me, my sodium is just fine the way it is. Leigh Mathis notified/aware of patient's request. Will follow up later time in case she changes her mind in morning.
[2024-11-25 00:04] VITALS: PULSE 59
[2024-11-25 04:01] VITALS: PULSE 56
[2024-11-25 06:00] VITALS: BP 121/71; PULSE 55; RESP 18; TEMP 36.6; O2SAT 98
[2024-11-25 06:55] LABS: Anion Gap 6 mmol/L (4-12); Blood Urea Nitrogen 13 mg/dL (7-17); Calcium 9.0 mg/dL (8.4-10.2); Carbon Dioxide 26 mmol/L (22-30); Chloride 99 mmol/L (98-107); Estimated CRCL calculation 80 ml/min; Estimated Glomerular Filt Rate > 60; Glucose 91 mg/dL (65-110); Potassium 4.4 mmol/L (3.4-5.0); Sodium 131 mmol/L (137-145)
[2024-11-25 08:00] VITALS: PULSE 52
[2024-11-25] MEDS: GABAPENTIN 300 MG CAPSULE PO (08:52)
[2024-11-25] MEDS: clonazePAM (*CRX) 0.5 MG TABLET 1 MG PO (08:52)
[2024-11-25] MEDS: PANTOPRAZOLE 40 MG TABLET PO (08:52)
[2024-11-25] MEDS: NITROFURANTOIN MONOHYD MACROCR 100 MG CAP PO (08:53)
[2024-11-25] MEDS: DEUTETRABENAZINE 30 MG 1 EACH PO (08:54)
--- NOTE | 2024-11-25 09:11 | PM.PNNEP ---
Progress Note: A&P Assessment and Plan (1) Hyponatremia: Code(s): E87.1 - Hypo-osmolality and hyponatremia Status: Acute Assessment and Plan: The patient has low sodium. I suspect that this is probably chronic. TSH is normal. Cortisol is low. Will check a Cortrosyn stim test. The SPEP is pending CT brain was done so no space occupying lesion causing the hyponatremia. The patient does not have a history of cancer. She should continue to be up-to-date with cancer surveillance though. She has asthma which does not usually cause hyponatremia. chest x-ray shows NAD Most likely carbamazepine and olanzapine are contributing to the hyponatremia. sodium level has stabilized at around 130 Will continue with fluid restriction alone. She is okay for discharge from the kidney standpoint. (2) Urinary tract infection: Code(s): N39.0 - Urinary tract infection, site not specified Status: Acute Assessment and Plan: The patient has dysuria. Her UA shows only 3-5 red cells but no white cells. Urine culture is negative this time. Certainly she has had plenty of bladder infections over the last few months. She should probably follow up with Urology as an outpatient to look for causes for frequent bladder infections. (3) Seizures: Code(s): R56.9 - Unspecified convulsions Status: Acute Assessment and Plan: The patient is on carbamazepine. Level is therapeutic. Neurology has seen; note is pending. (4) Anxiety: Code(s): F41.9 - Anxiety disorder, unspecified Status: Acute Assessment and Plan: The patient is on olanzapine. Subjective Date/time seen: 11/25/24 09:11 Interval history: The patient is alert. She feels good. She is eager for discharge Exam Narrative: WDWN in NAD skin no rash head ncat lungs clear bilaterally cor reg no rub or gallop abd BS+ nontender and soft ext no edema. Objective Data Vital Signs Vital Signs: Vital Signs - 24 hr 11/24/24 12:00 11/24/24 14:00 11/24/24 16:00 Temperature 96.6 F L Pulse Rate 62 63 53 L Respiratory Rate 18 Blood Pressure 115/81 Pulse Oximetry 98 Oxygen Delivery 11/24/24 20:01 11/24/24 20:39 11/24/24 21:45 Temperature 97.8 F Pulse Rate 58 L 56 L Respiratory Rate 18 Blood Pressure 124/76 Pulse Oximetry 99 99 Oxygen Delivery Room Air 11/25/24 00:04 11/25/24 04:01 11/25/24 06:00 Temperature 97.9 F Pulse Rate 59 L 56 L 55 L Respiratory Rate 18 Blood Pressure 121/71 Pulse Oximetry 98 Oxygen Delivery Intake/Output Intake/Output: Intake & Output 11/22/24 11/23/24 11/24/24 11/25/24 23:59 23:59 23:59 23:59 Intake Total 573 240 610 550 Output Total 3 Balance 573 240 607 550 Meds/Results Medications: Active Medications Generic Name Dose Route Start Last Admin Trade Name Freq PRN Reason Stop Dose Admin Albuterol 2 puff 11/21/24 22:34 Albuterol Sulfate (*Sp) Aerosol 1 Puff INHALATION Q6HRT PRN shortness of breath or wheezing Carbamazepine 600 mg 11/24/24 09:00 11/25/24 08:52 Carbamazepine Xr 200 Mg Tab.Er.12h PO 600 mg Q12HR CORTNEY Administration Clonazepam 1 mg 11/21/24 23:00 11/25/24 08:52 Clonazepam (*Crx) 0.5 Mg Tablet PO 1 mg Q12HR CORTNEY Administration Gabapentin 300 mg 11/21/24 22:35 11/25/24 08:52 Gabapentin 300 Mg Capsule PO 300 mg Q12HR CORTNEY Administration Nitrofurantoin Macrocrystals 100 mg 11/24/24 11:50 11/25/24 08:53 Nitrofurantoin Monohyd Macrocr 100 Mg Cap PO 11/29/24 11:49 100 mg Q12HR CORTNEY Administration Non-Formulary ( 1 each 11/22/24 09:00 11/25/24 08:54 Deutetrabenazine 30 PO 12/22/24 08:59 1 each Mg Oral Tablet, DAILY CORTNEY Administration Extended Release 24 Hr) Olanzapine 10 mg 11/22/24 09:00 11/25/24 08:53 Olanzapine 5 Mg Tablet PO 10 mg DAILY CORTNEY Administration Pantoprazole Sodium 40 mg 11/22/24 09:00 11/25/24 08:52 Pantoprazole 40 Mg Tablet PO 40 mg DAILY CORTNEY Administration Radiology Results: ITS Impressions Abdomen/Pelvis CT 11/21/24 19:02 IMPRESSION: Mild esophagitis/gastritis. Mild urinary bladder wall thickening, as can be seen with cystitis. Head CT 11/21/24 20:12 IMPRESSION: No acute intracranial process. CT findings may suggest the presence of acute sinusitis in the appropriate clinical context. Chest X-Ray 11/22/24 12:51 IMPRESSION: 1: NO ACUTE CARDIOPULMONARY DISEASE. Labs Labs: Laboratory Results - last 24 hr 11/24/24 11/24/24 11/25/24 14:41 21:02 06:00 Sodium 130 L 132 L 131 L Potassium 4.4 Chloride 99 Carbon Dioxide 26 Anion Gap 6 BUN 13 Creatinine 0.72 Estim Creat Clear Calc 80 Estimated GFR > 60 Glucose 91 Calcium 9.0
[2024-11-25 10:08] LABS: Osmolality, Urine 679 mOsmol/kg (.)
--- NOTE | 2024-11-25 11:07 | PM.DS ---
DS: Admitting Diagnosis Discharge Date 11/25 Admitting Diagnosis hyponatremia DS: Discharge Diagnosis Discharge Diagnosis (1) Hyponatremia: Code(s): E87.1 - Hypo-osmolality and hyponatremia Status: Acute (2) Acute hyponatremia: Code(s): E87.1 - Hypo-osmolality and hyponatremia Status: Acute (3) Urinary tract infection: Code(s): N39.0 - Urinary tract infection, site not specified Status: Acute DS: Summary Hospital Course Hospital Course: 48-year-old female with a history of anxiety and depression, seizures, chronic hyponatremia who presents to [facility] ER on 11/21/2024 complaint of dizziness fatigue brain fog urinary frequency and lower abdominal pressure. She has a history of multiple UTIs as well. The patient has been homeless for few months, she will be placed soon and a residence. She has not been able to see her PCP recently. She reports she is compliant with all of her medications spite of being homeless. She does feel she has been dehydrated the past few days it has been very hot out. Denies drug use. She has chronic hyponatremia however presented with a sodium of 120 which is lower than her usual. Urinalysis positive for nitrates, 4+ bacteria, some squamous cells. Abdomen pelvis CT demonstrating esophagitis/gastritis and mild urinary bladder wall thickening. CT head not demonstrate acute process. She received ceftriaxone, clonidine, 2 L normal saline bolus, morphine 4 mg IV x1, Zofran. Afterwards patient reported feeling significantly better. The patient's symptoms may be related to dehydration or hyponatremia. Status post fluid resuscitation her sodium increased from 120-127. This is around her baseline now and her symptoms have resolved. Will recheck another BMP now to ensure there is no over-correction. At this time she is receiving normal saline at 125 cc/hour. Drug urine screen pending, there is a delayed today because of laboratory downtime. Urinalysis abnormal although there squamous cells. However with the patient's complaint of urinary frequency. Tegretol level was checked and ok. Neurology was consulted as antiseizure meds could be one of jovanni reasons for her hyponatremia. PT does not wnat to make any changes to her meds without talking to her own neurologist which she is instructed to do. Added pyridium to help with burning with urination 11/[address] Brown Fluid restrictions 11/24 na corrected too fast. D5W was ordered per Dr Baltazar. Will repeat Na after, if around 128, ok to discharge with a close f/u with neurology and pcp. continue PO antibiotics for UTI. advised to f/u with urologist due to frequent UTI. 11/25 pt was not feeling great last night- so stayed overnight. Stable for discharge this morning. Rx for UTI was already sent Status at Discharge Functional status at discharge: independent ambulation Overall status at discharge: patient is progressing back to baseline Time Spent with Patient Time attestation: Total time spent providing and/or coordinating discharge services: Time spent: Greater than 30 minutes Exam Const: General: comfortable and no acute distress Other: A&O x3 HENMT: Mouth: Yes moist mucous membranes Eyes: Pupils: Equal, round and reactive pupils present Neck: Neck: supple Resp: Effort & Inspection: normal respiratory effort Auscultation: clear to auscultation bilaterally Cardio: Rate: regular rate Rhythm: regular rhythm Heart sounds: no gallops, no murmurs and no rubs GI: Inspection: non-distended Neuro: Cranial nerves: Yes Equal, round and reactive pupils present Motor exam (neuro): 5/5 motor strength present throughout Extrem: General: no edema DS: Data Data Completed and Pending Labs on day of discharge: Labs from last 24 hours 11/25/24 11/24/24 11/24/24 06:00 21:02 14:41 Sodium 131 L 132 L 130 L Potassium 4.4 Chloride 99 Carbon Dioxide 26 Anion Gap 6 BUN 13 Creatinine 0.72 Estim Creat Clear Calc 80 Estimated GFR > 60 Glucose 91 Calcium 9.0 Urine Osmolality 11/22/24 17:42 Sodium Potassium Chloride Carbon Dioxide Anion Gap BUN Creatinine Estim Creat Clear Calc Estimated GFR Glucose Calcium Urine Osmolality 679 Preliminary micro results at discharge 11/21/24 20:44 Blood Culture - Preliminary Blood 11/21/24 23:45 Blood Culture - Preliminary Blood 11/21/24 16:42 - Preliminary Urine Clean Catch Gram negative bacilli isolated Discharge Plan Discharge Attending physician on discharge: Lakeshia Novoa Consulting providers: Gregory Brown; Manohar Funes Discharging Clinician: Allie Whelan Patient Disposition: Home Activity: may shower Diet: regular Discharge Instructions: You were admitted for low sodium. Please follow instructions from land use planner about your water intake. Drink only 5-6 cups per day going forward. As he explained to you, this issue can be multifactorial and your antiseizure medication could be contributing to it as well that is why we asked neurology to help up with your medications. Please continue your antiseizure medications and follow up with your own neurologist within a week of discharge. We started you on antibiotics for UTI- please complete the course. Since you had so many episodes of UTI, it is important for you to f/u with urologist for further evaluation. Patient Instructions: Antibiotic Form Patient Language: Sami Stand Alone Forms: General Discharge Information Follow-up/Referrals: [facility] [Provider Group] - 2 Weeks Manohar Funes MD [Physician] - 1 Week Gregory Brown MD [Physician] - 2 Weeks Arielle,PARKER Simmons [Primary Care Provider] - 2 Weeks Discharge Medications: New nitrofurantoin monohyd/m-cryst [Macrobid] 100 mg Capsule 100 mg PO Q12HR Qty: 10 0RF Continued olanzapine 10 mg tablet 10 mg PO DAILY Patient Comments: per patient med list albuterol sulfate 90 mcg/actuation HFA aerosol inhaler 2 puff INHALATION QID PRN (Reason: shortness of breath or wheezing) Qty: 6.7 0RF Austedo XR 24 mg tablet extended release 24 hr 30 mg PO DAILY oxybutynin chloride 10 mg tablet extended release 24hr 10 mg PO DAILY pantoprazole 40 mg tablet,delayed release (DR/EC) 40 mg PO DAILY gabapentin 300 mg capsule 300 mg PO Q12H carbamazepine 200 mg tablet 200 mg PO .COMPLEX Qty: 180 0RF Rx Instructions: 200 mg PO 3 tabs by mouth every 12hrs; clonazepam 1 mg tablet 1 mg PO BID Qty: 30 0RF Date of admission: 11/23/24 13:28 Primary Care Provider: ArielleIris Admitting Provider: Opal Galdamez Attending physician on admission: Opal Galdamez Condition: Stable Hospitalist MIPS Heart Failure (Exclusion) Patient has history of Heart Transplant or Left Ventricular Assistive Device?: No IF YES, STOP HERE Heart Failure (Qualifier) Patient has current or prior documentation of LVEF less than or equal to 40%, or mod/servere depressed LVSF?: No IF NO, STOP HERE
[2024-11-25 12:00] VITALS: PULSE 57
[2024-11-25 14:00] VITALS: BP 124/78; PULSE 56; RESP 16; TEMP 35.9; O2SAT 97
--- NOTE | 2024-11-25 14:15 | P.PNNEUR_ITS ---
Progress Note: A&P Assessment and Plan (1) Seizures: Code(s): R56.9 - Unspecified convulsions Status: Acute (2) Hyponatremia: Code(s): E87.1 - Hypo-osmolality and hyponatremia Status: Acute Plan I discussed the situation the patient and subsequently also with Dr. Jules and we agreed to reduce the dose of Tegretol to 500 mg twice a day and put her on Lamictal 50 mg twice a day. After a week it can be increased to 100 mg twice a day. I shall be glad to see her in my office in 4 weeks time unless if she wishes to go back to her neurology nurse practitioner in [facility]. In either case it appears that the serum sodium of 120 is certainly not desirable and is probably due to Tegretol. Lamictal may consider favorable by the psychiatrist also and hence it would be a desirable addition. I noted that she is also on gabapentin 300 mg twice a day. Subjective Date/time seen: 11/25/24 14:15 Interval history: The patient is 48 years old with history of seizure disorder since he was about [id number] and she used to follow-up with a pediatric neurologist at [facility]. Dr. Jules has seen her yesterday. She is brought to the hospital with complaints of dizziness and fatigue and brain fog. She also has history of psychiatric illness and she is on Zyprexa and a few other medications. She has been on Tegretol 600 mg twice a day and serum sodium was 121 upon arrival. At this time she is feeling better and she has a plan to live in a hotel with a friend. She was homeless prior to arriving here. Review of Systems Review of Systems: All systems reviewed & are unremarkable except as noted in HPI and below Exam Narrative: Fully conscious alert oriented to self time place and person. Speech is fluent and articulate. No aphasia or dysarthria. Examination head and neck was unremarkable. Cranial seizure testing intact. Was midline. No facial asymmetry. Motor system normal power and tone in both upper lower limbs. Coordination finger-nose appears normal. No involuntary movements were noted. Objective Data Vital Signs Vital Signs: Vital Signs - 24 hr 11/24/24 16:00 11/24/24 20:01 11/24/24 20:39 Temperature Pulse Rate 53 L 58 L Respiratory Rate Blood Pressure Pulse Oximetry 99 Oxygen Delivery Room Air 11/24/24 21:45 11/25/24 00:04 11/25/24 04:01 Temperature 97.8 F Pulse Rate 56 L 59 L 56 L Respiratory Rate 18 Blood Pressure 124/76 Pulse Oximetry 99 Oxygen Delivery 11/25/24 06:00 11/25/24 08:00 11/25/24 08:00 Temperature 97.9 F Pulse Rate 55 L 52 L Respiratory Rate 18 Blood Pressure 121/71 Pulse Oximetry 98 Oxygen Delivery Room Air 11/25/24 12:00 Temperature Pulse Rate 57 L Respiratory Rate Blood Pressure Pulse Oximetry Oxygen Delivery Intake/Output Intake/Output: Intake & Output 11/22/24 11/23/24 11/24/24 11/25/24 23:59 23:59 23:59 23:59 Intake Total 573 240 610 790 Output Total 3 Balance 573 240 607 790 Meds/Results Medications: Active Medications Generic Name Dose Route Start Last Admin Trade Name Freq PRN Reason Stop Dose Admin Albuterol 2 puff 11/21/24 22:34 Albuterol Sulfate (*Sp) Aerosol 1 Puff INHALATION Q6HRT PRN shortness of breath or wheezing Carbamazepine 600 mg 11/24/24 09:00 11/25/24 08:52 Carbamazepine Xr 200 Mg Tab.Er.12h PO 600 mg Q12HR CORTNEY Administration Clonazepam 1 mg 11/21/24 23:00 11/25/24 08:52 Clonazepam (*Crx) 0.5 Mg Tablet PO 1 mg Q12HR CORTNEY Administration Gabapentin 300 mg 11/21/24 22:35 11/25/24 08:52 Gabapentin 300 Mg Capsule PO 300 mg Q12HR CORTNEY Administration Nitrofurantoin Macrocrystals 100 mg 11/24/24 11:50 11/25/24 08:53 Nitrofurantoin Monohyd Macrocr 100 Mg Cap PO 11/29/24 11:49 100 mg Q12HR CORTNEY Administration Non-Formulary ( 1 each 11/22/24 09:00 11/25/24 08:54 Deutetrabenazine 30 PO 12/22/24 08:59 1 each Mg Oral Tablet, DAILY CORTNEY Administration Extended Release 24 Hr) Olanzapine 10 mg 11/22/24 09:00 11/25/24 08:53 Olanzapine 5 Mg Tablet PO 10 mg DAILY CORTNEY Administration Pantoprazole Sodium 40 mg 11/22/24 09:00 11/25/24 08:52 Pantoprazole 40 Mg Tablet PO 40 mg DAILY CORTNEY Administration Radiology Results: ITS Impressions Abdomen/Pelvis CT 11/21/24 19:02 IMPRESSION: Mild esophagitis/gastritis. Mild urinary bladder wall thickening, as can be seen with cystitis. Head CT 11/21/24 20:12 IMPRESSION: No acute intracranial process. CT findings may suggest the presence of acute sinusitis in the appropriate clinical context. Chest X-Ray 11/22/24 12:51 IMPRESSION: 1: NO ACUTE CARDIOPULMONARY DISEASE. Labs Labs: Laboratory Results - last 24 hr 11/22/24 11/24/24 11/24/24 17:42 14:41 21:02 Sodium 130 L 132 L Potassium Chloride Carbon Dioxide Anion Gap BUN Creatinine Estim Creat Clear Calc Estimated GFR Glucose Calcium Urine Osmolality 679 11/25/24 06:00 Sodium 131 L Potassium 4.4 Chloride 99 Carbon Dioxide 26 Anion Gap 6 BUN 13 Creatinine 0.72 Estim Creat Clear Calc 80 Estimated GFR > 60 Glucose 91 Calcium 9.0 Urine Osmolality
[2024-11-26 15:09] LABS: Osmolality, Serum 256 mOsmol/kg (275-295)
== END 2024-11-25 15:10 | disposition home or self-care (01) | DRG 463 ==
LOC: ANHED 17:30 → ANH3MEDSUR 21:23
PROVIDERS: Emergency Medicine; Internal Medicine Nephrology; Admitting Provider General Practice; Emergency Provider Registered Nurse; PCP Nurse Practitioner Family; Visit Provider Nurse Practitioner
DX: N39.0 Urinary tract infection, site not specified (principal); B96.20 Unspecified Escherichia coli [E. coli] as the cause of diseases classified elsewhere; E87.1 Hypo-osmolality and hyponatremia; G93.41 Metabolic encephalopathy; E86.0 Dehydration; F41.9 Anxiety disorder, unspecified; F32.A Depression, unspecified; K20.90 Esophagitis, unspecified without bleeding; R56.9 Unspecified convulsions; Z59.00 Homelessness unspecified; E55.9 Vitamin D deficiency, unspecified; F17.210 Nicotine dependence, cigarettes, uncomplicated
CPT/HCPCS: 36415; 70450; 71046; 74177; 80048; 80053; 80156; 80307; 81001; 82436; 82533; 82570; 83605; 83690; 83735; 83930; 83935; 84295; 84300; 85025; 85610; 85730; 87040; 87086; 93005; 96361; 96365; 96374; 96375; 99285; A9270; G0378; G0379; J0696; J0834; J2270; J2405; J2597; J7030; J7070; Q9967